=== PATIENT | male | born 1950 | race Caucasian/White ===

== ENCOUNTER 2018-05-29 10:36 | Outpatient (CLI) | payer OTHER, SELFPAY ==
--- NOTE | 2018-05-29 10:53 | DI.RAD_ITS ---
SYMPTOMS/DIAGNOSIS: BRONCHITIS ACUTE, COUGH, J20.9 PA AND LATERAL CHEST: No priors. The heart is normal in size. The lungs are clear. The mediastinal structures and pleura appear intact. CONCLUSION: Normal chest.
== END 2018-05-29 10:56 ==
PROVIDERS: PCP Internal Medicine; Visit Provider Internal Medicine
DX: J20.9 Acute bronchitis, unspecified (principal)
CPT/HCPCS: 71046

== ENCOUNTER 2018-06-18 08:38 | Emergency (ER) | payer OTHER, SELFPAY ==
[2018-06-18 08:49] VITALS: BP 138/88; PULSE 100; RESP 20; TEMP 37; O2SAT 100
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
--- NOTE | 2018-06-18 09:44 | DI.RAD_ITS ---
SYMPTOMS/DIAGNOSIS: S/P FALL, ? ACUTE FRACTURE LEFT ANKLE: No fracture or ankle mortise widening is seen. There are no significant degenerative changes. Vascular calcifications are faintly seen. IMPRESSION: Negative left ankle.
[2018-06-18 10:28] VITALS: BP 138/88; PULSE 100; RESP 20; TEMP 37; O2SAT 100
== END 2018-06-18 10:34 | disposition home or self-care (01) ==
PROVIDERS: Emergency Provider Physician Assistant; PCP Internal Medicine
DX: S93.402A Sprain of unspecified ligament of left ankle, initial encounter (principal); W00.1XXA Fall from stairs and steps due to ice and snow, initial encounter; X50.9XXA Other and unspecified overexertion or strenuous movements or postures, initial encounter; I10 Essential (primary) hypertension
CPT/HCPCS: 99283; 73610; E0114

== ENCOUNTER 2018-06-24 11:22 | Outpatient (CLI) | payer OTHER, SELFPAY ==
--- NOTE | 2018-06-24 12:00 | DI.US_ITS ---
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 The isthmus is within normal limits at .2 cm. The right lobe measures 3.4 cm. by 1.4 cm. by 2.0 cm. There is a tiny, well circumscribed, 0.3 cm. anechoic lesion in the mid right lobe. The left lobe measures 3.5 cm. by 1 cm. by 1.2 cm. No lesion is seen in the left lobe. There is normal and symmetric blood flow to the thyroid gland. IMPRESSION: Solitary 0.3 cm. cystic lesion in the right lobe of the thyroid gland which is likely benign. The thyroid gland is otherwise unremarkable. NECK ULTRASOUND: Sonographic evaluation of the right neck was performed. No suspicious cystic or solid masses are seen sonographically. IMPRESSION: Negative right neck ultrasound.
== END 2018-06-24 11:42 ==
PROVIDERS: PCP Internal Medicine; Visit Provider Otolaryngology Otolaryngology/Facial Plastic Surgery
DX: E07.9 Disorder of thyroid, unspecified (principal); E04.1 Nontoxic single thyroid nodule; R49.0 Dysphonia
CPT/HCPCS: 76536

== ENCOUNTER 2018-07-21 03:16 | Outpatient (CLI) | payer OTHER, SELFPAY | END 2018-07-21 03:36 | PROVIDERS: PCP Internal Medicine | DX: R49.0 Dysphonia (principal) | CPT/HCPCS: 92524 ==

== ENCOUNTER 2019-03-23 12:29 | Outpatient (REF) | payer OTHER, SELFPAY ==
[2019-03-23 19:05] LABS: ALT 56 U/L (16-63); Anion Gap 6.8 mmol/L (3-11); BUN 18 mg/dL (7-18); CO2 30.2 mmol/L (21.0-32.0); Chloride 102 mmol/L (98-107); Glucose 95 mg/dL (70-100); LDL CHOLESTEROL 127 mg/dL (<100); Potassium 4.1 mmol/L (3.5-5.1); Sodium 139 mmol/L (136-145)
== END 2019-03-23 12:49 ==
LOC: NCHCN 12:29
PROVIDERS: PCP Internal Medicine; Visit Provider Internal Medicine
DX: D03.9 Melanoma in situ, unspecified (principal); I10 Essential (primary) hypertension; N18.2 Chronic kidney disease, stage 2 (mild)
CPT/HCPCS: 80048; 83721; 84460

== ENCOUNTER 2019-04-30 09:36 | Emergency (ER) | payer OTHER, SELFPAY ==
[2019-04-30 09:41] VITALS: BP 134/98; PULSE 87; RESP 16; TEMP 36.4; O2SAT 97
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
[2019-04-30 11:24] VITALS: BP 134/87; PULSE 76; TEMP 36.7; O2SAT 95
== END 2019-04-30 11:27 | disposition home or self-care (01) ==
PROVIDERS: Emergency Provider Emergency Medicine; PCP Internal Medicine
DX: M25.512 Pain in left shoulder (principal); V43.52XA Car driver injured in collision with other type car in traffic accident, initial encounter; S01.511A Laceration without foreign body of lip, initial encounter; R51 Headache; I10 Essential (primary) hypertension
CPT/HCPCS: 99283; 73030; 99284; L3650

== ENCOUNTER 2019-05-15 03:16 | Outpatient (CLI) | payer OTHER, SELFPAY ==
--- NOTE | 2019-05-15 08:15 | DI.MRI_ITS ---
EXAM: MR UPPER JOINT LT WO CLINICAL HISTORY: INJURY LT ROTATOR CUFF,S46.002A, ? TEAR. TECHNIQUE: Multiplanar multisequence MRI was performed. COMPARISON: MRI R UPPER JOINT WO CONT from 08/09/2017 XR SHOULDER LT COMPLETE 2+V from 04/30/2019 FINDINGS: MR examination of the shoulder was performed according to the usual protocol. As noted on plain film s, there is marked narrowing of the articular cartilage of the glenohumeral joint and there are promi nent osteophytes particularly inferiorly of the glenoid and humeral head as well as prominent hypertr ophic changes at the AC joint. No other significant bony abnormality is seen. The glenoid labrum is effaced and appears frayed and deficient particularly anteriorly but also poste riorly and anteroinferiorly. The biceps tendon is thickened and shows abnormal signal consistent with tendinosis. There is mild m edial displacement from the bicipital groove. There is abnormal signal in the rotator interval which may reflect tear of coracohumeral ligament and/or superior glenohumeral ligament. There is superio r surface partial-thickness tear of the subscapularis tendon without retraction. There is abnormal signal in supraspinatus tendon and there are a couple of small attachment tears of the supraspinatus at the humeral head with little if any retraction. There are partial-thickness non retracted tears of infraspinatus tendon just proximal to the humeral attachment. These appear to be undersurface tears. 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 Tendinosis and partial thickness non retracted tears of subscapularis, infraspinatus and supraspinatu s tendons. Abnormal signal in rotator interval and medially displaced biceps tendon noted with presu med bicipital tendinitis proximally. Deficient frayed/torn glenoid labrum, presumably on a degenerative basis, particularly anteriorly. No significant muscular atrophy seen involving the rotator cuff musculature.
== END 2019-05-15 03:36 ==
PROVIDERS: PCP Internal Medicine; Visit Provider Specialist
DX: S46.002A Unspecified injury of muscle(s) and tendon(s) of the rotator cuff of left shoulder, initial encounter (principal); M19.012 Primary osteoarthritis, left shoulder; M75.22 Bicipital tendinitis, left shoulder
CPT/HCPCS: 73221

== ENCOUNTER 2019-05-29 13:34 | Emergency (ER) | payer OTHER, SELFPAY ==
[2019-05-29 13:38] VITALS: BP 148/97; PULSE 84; RESP 18; TEMP 36.6; O2SAT 98
--- NOTE | 2019-05-29 13:48 | ED.GENADUL_ITS ---
Discharge Plan Disposition Patient Disposition: HOME Condition: Improving Discharge Details Chief Complaint: Vascular Clinical Impression: Myalgia Primary Care Provider: Patrick Potter ED Provider: Han Rudolph Home Meds and New Rx's Prescriptions: No Action losartan 100 MG tablet 100 mg PO DAILY RF: 0 atorvastatin [Lipitor] 40 MG tablet 40 mg PO HS RF: 0 ibuprofen 600 MG tablet 600 mg PO Q6H PRN PRNQty: 30 RF: 0 Discharge Instructions Instructions: Musculoskeletal Pain (ED) Additional Instructions: May apply ice to area to reduce discomfort. May also apply warm, moist heat to area to speed blood flow and healing. May use ibuprofen and/or Tylenol if needed for discomfort. Your ultrasound was negative for any acute findings. Medical Decision Making 69-year-old male presents from home with what he describes as a charley horse type cramping in the left calf 2 nights ago and persistent discomfort since that time. He called his primary care physician's office and was referred to the ER to get an ultrasound. His vital signs are unremarkable, his exam is reassuring and differential diagnosis is likely of muscle cramp, must exclude Lee's cyst or DVT. Patient referred for ultrasound which does not show evidence of DVT or Lee's cyst. Discussed with him that this likely is a muscle strain/myalgia following cramps. He is stable for discharge to home. HPI General Mode of arrival: ambulatory . Date/Time Provider Initiated Documentation: 05/29/19 13:38 . Limitations to Documentation: no limitations . Information obtained by: patient . History of Present Illness 69 year old M presents to the emergency department with the chief complaint of Left calf pain x2 days, described as mild, Quality is described as dull, and is localized to the left and upper extremity. Patient reports no radiation. Patient started experiencing this day(s) and it has been constant. No relieving factors improve symptom(s), No exacerbating factors reported . Patient notes denies chest pain and shortness of breath. Patient did receive the following treatments prior to arrival, none Related Data Home Medications Medication Instructions Recorded Confirmed losartan 100 mg PO DAILY tab-cap 01/21/13 05/29/19 atorvastatin [Lipitor] 40 mg PO HS tab 01/18/17 05/29/19 ibuprofen 600 mg PO Q6H PRN PRN #30 tablet 02/06/17 05/29/19 Previous Rx's Medication Instructions Recorded ibuprofen 600 mg PO Q6H PRN PRN #30 tablet 02/06/17 Allergies Allergy/AdvReac Type Severity Reaction Status Date / Time cephalexin [Cephalexin] Allergy Intermediate RASH Unverified 05/29/19 13:49 General Stated Complaint: Vascular EDI: 3 Review of Systems Narrative: No chest pain or shortness of breath, no prolonged immobilization or injury. 4 systems reviewed and otherwise negative [facility] Medical History History of Lyme disease HTN (hypertension) Hyperlipidemia Nutcracker esophagus Ventricular hypertrophy Surgical History (Updated 06/18/18 @ 09:30 by Marilee Francis DO) Biceps tendon rupture (Acute) with repair H/O shoulder surgery (Chronic) Hemorrhoidal Banding (02/06/17) Kidney stones (Chronic) with surgery Social History Smoking/Tobacco Use Status: Never Alcohol Intake: current Alcohol Intake frequency: a few times a week Drug use: Never Substance use type: does not use Do you feel safe at home: Yes Do you feel safe in your relationship?: Yes Exam Narrative Exam Narrative: GEN: awake, alert, oriented 3. Pleasant, well groomed, interactive. HEAD: Normocephalic, atraumatic ENT: Mucous membranes moist, oropharynx unremarkable, External ear exam unremarkable EYES: PERRL, EOMI NECK: Full ROM, no JENNIFER, no menigismus CHEST/RESP: Nontender, clear to auscultation bilateral, no wheeze/rhonchi/rales CARDIOVASCULAR: RRR, no murmur, rub alana. 2+ Rad pulse bilateral EXT: Full ROM, no edema, no rash. Mild tenderness left posterior calf, no cords appreciated. No asymmetry. No significant edema. Neuro: Grossly normal neurologic exam, conversant, interactive. Psych: Speech fluent, thoughts congruent, affect normal Course Vital Signs Vital signs: Vital Signs Temperature 36.6 C 05/29/19 13:38 Pulse 84 05/29/19 13:38 Respiratory Rate 18 05/29/19 13:38 Blood Pressure 148/97 H 05/29/19 13:38 Pulse Oximetry 98 05/29/19 13:38 Temperature 36.6 C 05/29/19 13:38 Temperature Source Skin 05/29/19 13:38 Pulse 84 05/29/19 13:38 Respiratory Rate 18 05/29/19 13:38 Respiratory Effort Non-Labored 05/29/19 13:41 Blood Pressure 148/97 H 05/29/19 13:38 Blood Pressure Position Sitting 05/29/19 13:38 Pulse Oximetry 98 05/29/19 13:38 Oxygen Delivery Method Room Air 05/29/19 13:38 Oxygen Flow Rate 0 05/29/19 13:38 Pain Level 6 05/29/19 13:38
--- NOTE | 2019-05-29 14:17 | DI.US_ITS ---
EXAM: US LOWER EXTREMITY VENOUS LT US LOWER EXTREMITY VENOUS LT CLINICAL HISTORY: calf/lower leg pain, 'referred by PMD for US'. TECHNIQUE: Lower extremity venous ultrasound performed using grayscale, color-flow, and spectral Dop pler analysis. COMPARISON: No exams were available for comparison FINDINGS: The common femoral, femoral and popliteal veins demonstrate normal compressibility, augmentation, and color Doppler. The posterior tibial veins are patent. The saphenous vein appears free of thrombus. No Lee's cyst or hematoma is seen. IMPRESSION: No evidence of DVT.
[2019-05-29 14:54] VITALS: BP 148/97; PULSE 84; RESP 18; TEMP 36.6; O2SAT 98
== END 2019-05-29 14:53 | disposition home or self-care (01) ==
PROVIDERS: Emergency Provider Emergency Medicine; PCP Internal Medicine
DX: M79.662 Pain in left lower leg (principal); M62.831 Muscle spasm of calf; M79.10 Myalgia, unspecified site; I10 Essential (primary) hypertension
CPT/HCPCS: 99284; 93971

== ENCOUNTER 2019-06-30 02:07 | Outpatient (CLI) | payer OTHER, SELFPAY ==
--- NOTE | 2019-06-30 | DI.US_ITS ---
EXAM: US THYROID CLINICAL HISTORY: THYROID NODULE E04.1. TECHNIQUE: Ultrasound thyroid performed using standard protocol. FINDINGS: ISTHMUS: 3 mm RIGHT LOBE: Size: 4.2 x 1.6 x 1.9 cm Echogenicity: Normal. Vascularity: Normal. Nodules: There is a 0.3 x 0.2 x 0.3 cm well-circumscribed completely cystic lesion in the upper pole. LEFT LOBE: Size: 3.5 x 1.2 x 1.2 cm Echogenicity: Normal. Vascularity: Normal. Nodules: There is a 0.4 x 0.2 x 0.3 cm well-circumscribed completely cystic avascular lesion in the m idpole. OTHER FINDINGS: None. IMPRESSION: Two small cysts in the thyroid gland. No suspicious thyroid nodules.
== END 2019-06-30 02:27 ==
PROVIDERS: PCP Internal Medicine; Visit Provider Otolaryngology Otolaryngology/Facial Plastic Surgery
DX: E04.2 Nontoxic multinodular goiter (principal); E07.89 Other specified disorders of thyroid
CPT/HCPCS: 76536

== ENCOUNTER 2019-12-11 02:07 | Outpatient (CLI) | payer OTHER, SELFPAY ==
[2019-12-21 11:06] LABS: Factor V Leiden(R506Q) Mut Heterozygous
== END 2019-12-11 02:27 ==
PROVIDERS: PCP Internal Medicine; Visit Provider Internal Medicine
DX: Z83.2 Family history of diseases of the blood and blood-forming organs and certain disorders involving the immune mechanism (principal)
CPT/HCPCS: 36415; 81241

== ENCOUNTER 2020-01-08 04:07 | Outpatient (CLI) | payer OTHER, SELFPAY ==
--- NOTE | 2020-01-08 07:49 | DI.RAD_ITS ---
EXAM: XR KNEE LT 3V AP,LAT,GIL CLINICAL HISTORY: LT KNEE PAIN,M25.562 TECHNIQUE: COMPARISON: No exams were available for comparison FINDINGS: Three views were obtained. There may be a small knee joint effusion. . There may be slight degener ative narrowing of the medial tibiofemoral cartilaginous joint space.No bony abnormality seen. IMPRESSION: Question degenerative thinning medial tibial femoral joint articular cartilage. Possible joint effus ion. Otherwise unremarkable. RADIATION DOSE DELIVERED: Total DLP
== END 2020-01-08 04:27 ==
PROVIDERS: PCP Internal Medicine; Visit Provider Physician Assistant
DX: M25.562 Pain in left knee (principal)
CPT/HCPCS: 73562

== ENCOUNTER 2020-02-26 13:17 | Outpatient (REF) | payer OTHER, SELFPAY ==
[2020-02-26 19:11] LABS: Albumin 3.9 g/dL (3.4-5.0); Anion Gap 5.8 mmol/L (3-11); BUN 19 mg/dL (7-18); CO2 28.2 mmol/L (21.0-32.0); CREATININE 1.09 mg/dL (0.70-1.30); Chloride 102 mmol/L (98-107); Glucose 92 mg/dL (74-106); Magnesium 2.1 mg/dL (1.8-2.4); PHOSPHORUS 3.3 mg/dL (2.6-4.7); Potassium 3.7 mmol/L (3.5-5.1); Sodium 136 mmol/L (136-145)
== END 2020-02-26 13:37 ==
LOC: NCHCN 13:17
PROVIDERS: PCP Internal Medicine; Visit Provider Internal Medicine
DX: Z00.00 Encounter for general adult medical examination without abnormal findings (principal); I10 Essential (primary) hypertension; M12.812 Other specific arthropathies, not elsewhere classified, left shoulder
CPT/HCPCS: 80069; 83735

== ENCOUNTER 2020-03-30 15:58 | Emergency (ER) | payer MEDICARE, OTHER, SELFPAY ==
[2020-03-30 16:05] VITALS: BP 125/78; PULSE 117; RESP 18; TEMP 36.7; O2SAT 96
--- NOTE | 2020-03-30 16:15 | DI.US_ITS ---
EXAM: US SOFT TISS EXTREMITY/GROIN CLINICAL HISTORY: swelling, pain. TECHNIQUE: Ultrasound was performed using standard protocol. COMPARISON: No exams were available for comparison FINDINGS: Sonographic assessment utilizing grayscale and color Doppler imaging was performed and targeted to th e area of clinical concern. In the right inguinal region, there is a 3.1 x 2.1 x 2.5 cm heterogeneous area which increases upon V alsalva suggesting an inguinal hernia. This appears to be a fat containing inguinal hernia. There d oes however appear to be a component of the herniated material with a bowel signature. The neck of t he hernia measures approximately 2.5 cm in diameter. IMPRESSION: Findings suggestive of right inguinal hernia composed mostly of fat but a short loop of bowel appears to be included. A CT scan should be considered for further evaluation. DATA REPOSITORY:
--- NOTE | 2020-03-30 18:03 | DI.VRAD_ITS ---
PROCEDURE INFORMATION: Exam: US Right Non-Vascular Joint or Other Extremity Structure, Limited Lower Extremity Exam date and time: 03/30/2020 4:17 PM Age: 70 years old Clinical indication: Hip; Right; Patient HX: RT groin lump x several years. Sudden onset of RT groin pain yesterday. TECHNIQUE: Imaging protocol: Right US joint or other nonvascular extremity structure or structures. Real-time ultrasound with image documentation. Limited study. Exam focused on the lower extremity in the region of clinical interest. COMPARISON: No relevant prior studies available. FINDINGS: Soft tissues: In the right groin, in the region of the right inguinal canal, there is a 3.1 x 2.1 x 2.5 cm oblong heterogeneous region which increases in craniocaudal dimension on Valsalva maneuver during dynamic cine imaging, suggesting an inguinal hernia, likely an indirect inguinal hernia. On some images there is a striated appearance to the contents within the hernia sac, indicating a short loop of small bowel within the superior aspect of the hernia sac. The neck of the hernia appears to measure approximately 2.5 cm diameter. IMPRESSION: Findings suggest small right inguinal hernia, which contains mostly fat but likely also contains a short loop of small bowel within its superior aspect. Recommend clinical correlation. Better evaluation with CT could be obtained as clinically indicated. Dictated and Authenticated by: Bony Napoles MD. Ordering:ANGELINA Garcia MD
--- NOTE | 2020-03-30 18:31 | ED.GENADUL_ITS ---
Discharge Plan Disposition Patient Disposition: HOME Condition: Stable Discharge Details Clinical Impression: Hernia, inguinal, right Primary Care Provider: Patrick Potter ED Provider: Radha Obando Home Meds and New Rx's Prescriptions: No Action losartan 100 MG tablet 100 mg PO DAILY RF: 0 atorvastatin [Lipitor] 40 MG tablet 40 mg PO HS RF: 0 aspirin 325 mg Tablet 325 mg PO DAILY RF: 0 hydromorphone [Dilaudid] 2 mg Tablet 2 mg PO Q4H PRNRF: 0 naproxen sodium [Aleve] 220 mg Capsule 220 mg PO Q8H PRNRF: 0 Discharge Instructions Instructions: Inguinal Hernia (ED) Additional Instructions: Continue home medications as previously directed Add fiber and stool softeners to keep your bowel movements Increase fluids to stay well-hydrated Return immediately for new or worsening symptoms Referrals: Patrick Potter [Primary Care Provider] - Medical Decision Making Medical Records Medical records reviewed: Yes I reviewed the patient's medical records. Medical records narrative: right inguinal ultrasound FINDINGS: Soft tissues: In the right groin, in the region of the right inguinal canal, there is a 3.1 x 2.1 x 2.5 cm oblong heterogeneous region which increases in craniocaudal dimension on Valsalva maneuver during dynamic cine imaging, suggesting an inguinal hernia, likely an indirect inguinal hernia. On some images there is a striated appearance to the contents within the hernia sac, indicating a short loop of small bowel within the superior aspect of the hernia sac. The neck of the hernia appears to measure approximately 2.5 cm diameter. IMPRESSION: Findings suggest small right inguinal hernia, which contains mostly fat but likely also contains a short loop of small bowel within its superior aspect. Recommend clinical correlation. Better evaluation with CT could be obtained as clinically indicated. HPI General Date/Time Provider Initiated Documentation: 03/30/20 16:14 . Limitations to Documentation: no limitations . Information obtained by: patient . HPI Narrative: Patient presents for evaluation of right groin pain which woke him up from sleeping. he states he was concerned it was a blood clot so presented to the ED for evaluation. the pain has since subsided. he reports he has a chronic lump in his groin that is unchanged and not painful currently. he is passing flatus and last BM yesterday. no other c/o. Related Data Home Medications Medication Instructions Recorded Confirmed losartan 100 mg PO DAILY tab-cap 01/21/13 03/30/20 atorvastatin [Lipitor] 40 mg PO HS tab 01/18/17 03/30/20 aspirin 325 mg PO DAILY 03/30/20 03/30/20 hydromorphone [Dilaudid] 2 mg PO Q4H PRN 03/30/20 03/30/20 naproxen sodium [Aleve] 220 mg PO Q8H PRN 03/30/20 03/30/20 Allergies Allergy/AdvReac Type Severity Reaction Status Date / Time cephalexin [Cephalexin] Allergy Intermediate RASH Unverified 03/30/20 16:11 General Stated Complaint: Abd Prob EDI: 3 Review of Systems Constitutional Constitutional: Denies fever(s) Gastrointestinal Gastrointestinal: Denies abdominal pain, Denies constipation and Denies diarrhea Genitourinary Genitourinary: Denies difficulty urinating Musculoskeletal Musculoskeletal: Reports other (right groin pain) Integumentary/Breasts Skin/Breast: Denies new lesions and Denies rash [facility] Medical History (Updated 03/30/20 @ 18:40 by Radha Obando NP) History of Lyme disease HTN (hypertension) Hyperlipidemia Nutcracker esophagus Ventricular hypertrophy Surgical History (Updated 06/18/18 @ 09:30 by Marilee Francis DO) Biceps tendon rupture with repair H/O shoulder surgery Hemorrhoidal Banding (02/06/17) Kidney stones with surgery Social History Smoking/Tobacco Use Status: Never Smoking risk assessment performed?: Yes Alcohol Intake: current Alcohol Intake frequency: a few times a week Drug use: Never Substance use type: does not use Do you feel safe at home: Yes Do you feel safe in your relationship?: Yes Exam Const General: cooperative, comfortable and no acute distress GI Palpation: hernia other (right soft, non painful, non reducible. reports chronic and unchanged) Course Vital Signs Vital signs: Vital Signs Temperature 36.7 C 03/30/20 16:05 Pulse 117 H 03/30/20 16:05 Respiratory Rate 18 03/30/20 16:05 Blood Pressure 125/78 03/30/20 16:05 Pulse Oximetry 96 03/30/20 16:05 Temperature 36.7 C 03/30/20 16:05 Temperature Source Temporal Artery Scan 03/30/20 16:05 Pulse 117 H 03/30/20 16:05 Respiratory Rate 18 03/30/20 16:05 Respiratory Effort Non-Labored 03/30/20 16:09 Blood Pressure 125/78 03/30/20 16:05 Blood Pressure Position Sitting 03/30/20 16:05 Pulse Oximetry 96 03/30/20 16:05 Oxygen Delivery Method Room Air 03/30/20 16:05 Oxygen Flow Rate 0 03/30/20 16:05 Pain Level 2 03/30/20 18:11
[2020-03-30 18:46] VITALS: BP 135/85; PULSE 98; RESP 16; TEMP 37.2; O2SAT 95
[2020-03-30 18:47] VITALS: BP 135/85; PULSE 98; RESP 16; TEMP 37.2; O2SAT 95
== END 2020-03-30 18:46 | disposition home or self-care (01) ==
PROVIDERS: Emergency Provider Nurse Practitioner Acute Care; PCP Internal Medicine
DX: K40.90 Unilateral inguinal hernia, without obstruction or gangrene, not specified as recurrent (principal); I10 Essential (primary) hypertension
CPT/HCPCS: 76882; 99284; 99283

== ENCOUNTER 2021-03-06 20:05 | Outpatient (REF) | payer MEDICARE, OTHER, SELFPAY ==
[2021-03-06 21:31] LABS: ALT 56 U/L (16-63); Anion Gap 10.9 mmol/L (3-11); BUN 19 mg/dL (7-18); CO2 28.1 mmol/L (21.0-32.0); CREATININE 1.1 mg/dL (0.70-1.30); Calcium 8.9 mg/dL (8.5-10.1); Chloride 102 mmol/L (98-107); Glucose 122 mg/dL (74-106); LDL CHOLESTEROL 108 mg/dL (<100); Potassium 3.9 mmol/L (3.5-5.1); Sodium 141 mmol/L (136-145)
== END 2021-03-06 20:06 | disposition home or self-care (01) ==
LOC: NCHCN 20:05
PROVIDERS: PCP Internal Medicine; Visit Provider Internal Medicine
DX: E78.5 Hyperlipidemia, unspecified (principal); I10 Essential (primary) hypertension
CPT/HCPCS: 80048; 83721; 84460

== ENCOUNTER 2021-07-24 16:43 | Outpatient (REF) | payer MEDICARE, SELFPAY ==
[2021-07-24 19:44] LABS: ESR 9 mm/hr (0-20)
[2021-07-24 19:45] LABS: HCT 46.4 % (40.0-50.0); MCH 32.1 pg (27.0-33.0); MCHC 34.5 % (32.0-36.0); MPV 9.4 fL (8.0-11.0); Platelet Count 253 10^3/uL (130-400); RBC 4.99 10^6/uL (4.36-5.78); RDW 13.2 % (11.8-14.1); RDW-SD 44.8 fL; WBC 7.81 10^3/uL (4.4-10.8)
[2021-07-24 19:53] LABS: C-Reactive Protein 0.17 mg/dL (0.0-0.3)
[2021-07-26 10:21] LABS: Cyclic Citrullinated Peptide <2.5 U/mL (<5.0)
== END 2021-07-24 16:44 | disposition home or self-care (01) ==
LOC: NCHCN 16:43
PROVIDERS: PCP Internal Medicine; Visit Provider Internal Medicine
DX: M17.12 Unilateral primary osteoarthritis, left knee (principal); M79.10 Myalgia, unspecified site; M12.812 Other specific arthropathies, not elsewhere classified, left shoulder
CPT/HCPCS: 85027; 85652; 86200; 86140; 86431

== ENCOUNTER → 2021-08-02 14:02 | Outpatient (CLI) | payer MEDICARE, SELFPAY ==
--- NOTE | 2021-08-02 14:21 | DI.RAD_ITS ---
Exam(s) XR CHEST 2V PA LATERAL EXAM: XR CHEST 2V PA LATERAL CLINICAL HISTORY: PERSISTENT COUGH X 2 MONTHS. TECHNIQUE: 2D digital imaging was performed. COMPARISON: CR XR CHEST 2V PA LATERAL from 05/29/2018 FINDINGS: 2 views: There is now a left shoulder prosthesis. Again noted is widening of the AC joint on the opposite-rig ht side. Heart size is normal. The mediastinum is not widened. Lungs are clear. No infiltrates nor pleural effusions. IMPRESSION: No acute pulmonary findings. Left shoulder prosthesis. DATA REPOSITORY: RADIATION DOSE DELIVERED:
== END ==
PROVIDERS: PCP Internal Medicine; Visit Provider Internal Medicine
DX: R05.8 Other specified cough (principal)
CPT/HCPCS: 71046

== ENCOUNTER 2022-04-26 14:19 | Outpatient (REF) | payer MEDICARE, SELFPAY ==
[2022-04-26 19:25] LABS: ALT 58 U/L (16-63); Anion Gap 6.9 mmol/L (3-11); BUN 19 mg/dL (7-18); CO2 29.1 mmol/L (21.0-32.0); CREATININE 1.2 mg/dL (0.70-1.30); Chloride 101 mmol/L (98-107); Creatine Kinase 524 U/L (39-308); Estimated GFR 65.06 (mL/min/1.73m2); Glucose 112 mg/dL (74-106); Potassium 3.9 mmol/L (3.5-5.1); Sodium 137 mmol/L (136-145)
[2022-04-26 19:45] LABS: Calculated LDL 122 mg/dL (<100); Cholesterol 215 mg/dL (<200); HDL Cholesterol 67 mg/dL (40-60); Triglyceride 130 mg/dL (<150)
== END 2022-04-26 14:20 | disposition home or self-care (01) ==
LOC: NCHCN 14:19
PROVIDERS: PCP Internal Medicine; Visit Provider Internal Medicine
DX: I10 Essential (primary) hypertension (principal); S93.412A Sprain of calcaneofibular ligament of left ankle, initial encounter; Z00.00 Encounter for general adult medical examination without abnormal findings
CPT/HCPCS: 80048; 80061; 82550; 84460

== ENCOUNTER 2022-10-24 13:29 | Outpatient (REF) | payer MEDICARE, SELFPAY ==
[2022-10-24 21:46] LABS: Bilirubin, Direct 0.2 mg/dL (0.0-0.2); C-Reactive Protein 0.56 mg/dL (0.0-0.3); Creatine Kinase 504 U/L (39-308); LDH 227 U/L (85-227); Potassium 4.3 mmol/L (3.5-5.1)
== END 2022-10-24 13:30 | disposition home or self-care (01) ==
LOC: NCHCN 13:29
PROVIDERS: PCP Internal Medicine; Visit Provider Internal Medicine
DX: D68.51 Activated protein C resistance (principal); N18.2 Chronic kidney disease, stage 2 (mild); E78.5 Hyperlipidemia, unspecified; N20.0 Calculus of kidney; Z86.19 Personal history of other infectious and parasitic diseases; R79.82 Elevated C-reactive protein (CRP)
CPT/HCPCS: 82550; 82248; 83615; 83735; 84132; 86140

== ENCOUNTER 2022-12-15 08:56 | Emergency (ER) | payer MEDICARE, SELFPAY ==
[2022-12-15 09:02] VITALS: BP 144/71; PULSE 100; RESP 18; TEMP 36.8
--- NOTE | 2022-12-15 09:07 | ED.GENADUL_ITS ---
Discharge Plan Disposition Patient Disposition: Home Condition: Stable Discharge Details Clinical Impression: Deep vein thrombosis (DVT) of popliteal vein of right lower extremity Primary Care Provider: Patrick Potter ED Provider: Marly Daneils Home Meds and New Rx's Prescriptions: New Eliquis DVT-PE Treat 30D Start 5 mg (74 tabs) tablets,dose pack 5 mg PO BID Qty: 74 0RF Rx Instructions: Take 10 mg orally twice daily x 7 days: Then 5mg orally twice daily as per package instructions oxycodone 5 mg capsule 5 mg PO Q8H PRN (Reason: pain) Qty: 7 0RF Rx Instructions: Take 1 capsule by mouth every 8 hours as needed for moderate to severe pain. Please take with food and no driving or operating heavy machinery while on this medication. No Action losartan 100 MG tablet 100 mg PO DAILY atorvastatin [Lipitor] 40 MG tablet 40 mg PO HS aspirin 325 mg Tablet 325 mg PO DAILY hydromorphone [Dilaudid] 2 mg Tablet 2 mg PO Q4H PRN naproxen sodium [Aleve] 220 mg Capsule 220 mg PO Q8H PRN Discharge Instructions Instructions: Apixaban (By mouth), Deep Vein Thrombosis (ED) Additional Instructions: You have a deep vein thrombosis or a blood clot in your right lower leg. Please take the Eliquis as directed should be taking 10 mg twice a day for the next 7 days and then 5 mg twice a day thereafter. Please follow-up with your primary care provider in the next 7 days. Do not rub your leg, please return to the ER if you have any chest pain, shortness of breath or feeling sicker at any time. Follow up with primary care provider in 3-5 days. Return to ED sooner if any worsening or concerns. Increase oral fluids. Referrals: Patrick Potter [Primary Care Provider] - 3 days Discharge Data Discharge Date/Time-TO BE ENTERED AT DEPARTURE: 12/15/22 11:11 Medical Decision Making 72-year-old male with past medical history hypertension, Lyme disease, hyperlipidemia nutcracker esophagus ventricular hypertrophy, biceps tendon rupture hemorrhoidal banding and kidney stones presents to the ER with a chief complaint of right calf pain which began yesterday. He has no known trauma or injuries. He does report that it extends up into his posterior right thigh. There is slight amount of swelling no erythema or warmth noted. No obvious deformity. US RLE venous Doppler ordered. Positive for DVT. Please see report below. Ultrasound shows occlusive thrombus from the proximal posterior tibial and peroneal veins to the proximal popliteal vein. The common femoral femoral and proximal profundofemoral are patent without thrombus. Segment of thrombus is approximately 12 cm in length. Labs ordered including CBC, CMP PT PTT Labs are largely unremarkable glucose 138. Patient has no chest pain no palpitations no shortness of breath at this time. Discussed results of ultrasound with patient and family who verbalized understanding. Will place patient on Eliquis 10 mg twice a day x7 days and then 5 mg twice daily. I did encourage close and strict follow-up with PCP. I did discuss home care. Patient does have a history of blood clots in the past after surgery. I also did recommend vascular follow-up at [facility] [place]. Patient and family verbalized understanding. Oxycodone sent to pharmacy on file [facility] in [place] for pain. This text was generated using readeoation system, please disregard any oddities of phrase or misspellings. Medical Records Medical records reviewed: Yes I reviewed the patient's medical records. Imaging Data Radiologic Study: Imaging: Ultrasound Radiologist's impression: COMPARISON: US SOFT TISS EXTREMITY/GROIN 03/30/2020 4:24 PM FINDINGS: Right deep veins: Occlusive thrombus within the proximal posterior tibial and peroneal veins. This extends proximally through the popliteal vein. This segment of thrombus is approximally 12 cm in length. The common femoral, femoral, and proximal profunda femoral are patent without thrombus. Normal Doppler waveforms. Normal compressibility and/or augmentation response. Superficial veins: Unremarkable. Saphenofemoral junction is patent without thrombus. Soft tissues: Unremarkable. IMPRESSION: Occlusive thrombus from the proximal posterior tibial and peroneal veins to the proximal popliteal vein. Thank you for allowing us to participate in the care of your patient. Dictated and Authenticated by: Fernando Mirza MD Lab Data Lab results reviewed: Yes I reviewed the patient's lab results. Labs: Laboratory Tests Range/Units 12/15/22 12/15/22 12/15/22 10:22 10:22 10:22 WBC (4.4-10.8) 10^3/uL 7.33 RBC (4.36-5.78) 10^6/uL 4.97 Hgb (13.5-17.5) g/dL 15.9 Hct (40.0-50.0) % 46.3 MCV (80-95) fL 93 MCH (27.0-33.0) pg 32.0 MCHC (32.0-36.0) % 34.3 RDW (11.8-14.1) % 13.1 Plt Count (130-400) 10^3/uL 197 MPV (8.0-11.0) fL 9.0 Immature Gran % 0.8 Neutrophils % 65.9 Lymphocytes % 19.1 Monocytes % 10.0 Eosinophils % 3.0 Basophils % 1.2 Nucleated RBC % (0.0-0.3) % 0.0 Absolute Neutrophils (1.2-6.7) 10^3/uL 4.83 Absolute Lymphocytes (1.2-3.4) 10^3/uL 1.40 Absolute Monocytes (0.1-0.8) 10^3/uL 0.73 Absolute Eosinophils (0.0-0.7) 10^3/uL 0.22 Absolute Basophils (0.0-0.2) 10^3/uL 0.09 PT (9.3-11.0) sec 9.5 INR (0.9-1.1) 0.9 APTT (21.5-31.9) sec 25.5 Sodium (136-145) mmol/L 139 Potassium (3.5-5.1) mmol/L 3.9 Chloride (98-107) mmol/L 103 Carbon Dioxide (21.0-32.0) mmol/L 26.0 Anion Gap (3-11) mmol/L 10.0 BUN (7-18) mg/dL 19 H Creatinine (0.70-1.30) mg/dL 1.2 Est GFR (CKD-EPI 2020) (mL/min/1.73m2) 65.06 Glucose (74-106) mg/dL 138 H Calcium (8.5-10.1) mg/dL 8.6 Total Bilirubin (0.2-1.0) mg/dL 0.5 AST (15-37) U/L 20 ALT (16-63) U/L 46 Alkaline Phosphatase (46-116) U/L 77 Total Protein (6.4-8.2) g/dL 7.4 Albumin (3.4-5.0) g/dL 3.7 HPI General Mode of arrival: ambulatory . Date/Time Provider Initiated Documentation: 12/15/22 08:57 . Limitations to Documentation: no limitations . Information obtained by: patient, RN notes reviewed and old records reviewed . HPI Narrative: 72-year-old male with past medical history hypertension, Lyme disease, hyperlipidemia nutcracker esophagus ventricular hypertrophy, biceps tendon rupture hemorrhoidal banding and kidney stones presents to the ER with a chief complaint of right calf pain which began yesterday. He has no known trauma or injuries. He does report that it extends up into his posterior right thigh. There is slight amount of swelling no erythema or warmth noted. No obvious deformity. Related Data Home Medications Medication Instructions Recorded Confirmed losartan 100 mg tablet 100 mg PO DAILY 01/21/13 03/30/20 atorvastatin 40 mg tablet (Lipitor) 40 mg PO HS 01/18/17 03/30/20 aspirin 325 mg tablet 325 mg PO DAILY 03/30/20 03/30/20 hydromorphone 2 mg tablet 2 mg PO Q4H PRN 03/30/20 03/30/20 (Dilaudid) naproxen sodium 220 mg capsule 220 mg PO Q8H PRN 03/30/20 03/30/20 (Aleve) apixaban 5 mg (74 tabs) tablets in 5 mg PO BID DVT #74 dose pk 12/15/22 a dose pack (Eliquis DVT-PE Treat 30D Start) oxycodone 5 mg capsule 5 mg PO Q8H PRN pain #7 caps 12/15/22 Previous Rx's Medication Instructions Recorded apixaban 5 mg (74 tabs) tablets in 5 mg PO BID DVT #74 dose pk 12/15/22 a dose pack (Eliquis DVT-PE Treat 30D Start) oxycodone 5 mg capsule 5 mg PO Q8H PRN pain #7 caps 12/15/22 Allergies Allergy/AdvReac Type Severity Reaction Status Date / Time cephalexin [Cephalexin] Allergy Intermediate RASH Unverified 03/30/20 16:11 General Stated Complaint: Vascular EDI: 3 PFSH All Active Problems (Updated 12/15/22 @ 11:11 by Marly Daniels NP) Deep vein thrombosis (DVT) of popliteal vein of right lower extremity (Acute) Bilateral chronic otorrhea (Acute 03/30/15) Medical History (Updated 12/15/22 @ 11:11 by Marly Daniels NP) History of Lyme disease HTN (hypertension) Hyperlipidemia Nutcracker esophagus Ventricular hypertrophy Surgical History (Updated 06/18/18 @ 09:30 by Marilee Francis DO) Biceps tendon rupture with repair H/O shoulder surgery Hemorrhoidal Banding (02/06/17) Kidney stones with surgery Social History Smoking/Tobacco Use Status: Never Smoking risk assessment performed?: Yes Alcohol Intake: current Alcohol Intake frequency: a few times a week Drug use: Never Substance use type: does not use Do you feel safe at home: Yes Do you feel safe in your relationship?: Yes Exam Resp Effort & Inspection: normal respiratory effort and able to speak in complete sentences Auscultation: clear to auscultation bilaterally Cardio Rate: regular rate Rhythm: regular rhythm Heart Sounds: S1 normal and S2 normal Extrem General: calf tenderness on the right, no cyanosis, no edema, limp and no pedal edema Right lower extremity: normal capillary refill, knee and lower leg Details: tenderness Location: of the posterior calf and localized swelling Location: of the mid lower leg; no erythema; no edema Course Vital Signs Vital signs: Vital Signs Pulse 100 H 12/15/22 09:02 Respiratory Rate 18 12/15/22 09:02 Blood Pressure 144/71 H 12/15/22 09:02 Temperature Source Oral 12/15/22 09:02 Pulse 100 H 12/15/22 09:02 Respiratory Rate 18 12/15/22 09:02 Blood Pressure 144/71 H 12/15/22 09:02 Blood Pressure Position Sitting 12/15/22 09:02 Oxygen Delivery Method Room Air 12/15/22 09:02 Oxygen Flow Rate 0 12/15/22 09:02 Pain Level 9 12/15/22 09:02
--- NOTE | 2022-12-15 09:15 | DI.US_ITS ---
Exam(s) US LOWER EXTREMITY VENOUS RT EXAM: US LOWER EXTREMITY VENOUS RT CLINICAL HISTORY: Right calf pain and swelling. TECHNIQUE: Lower extremity venous ultrasound performed using grayscale, color-flow, and spectral Do ppler analysis. COMPARISON: No exams were available for comparison FINDINGS: The common femoral, profundus femoral and superficial femoral veins demonstrate normal compressibilit y, augmentation, and color Doppler.The popliteal vein contains thrombus which extends into the proxim al peroneal and posterior tibial veins. Approximate 12 cm in length. No saphenous vein thrombosis o r other superficial venous thrombosis is seen. No hematoma or Lee's cyst is seen. IMPRESSION: Deep venous thrombosis from the popliteal vein extending into the peroneal and posterior tibial veins . DATA REPOSITORY:
--- NOTE | 2022-12-15 10:20 | DI.VRAD_ITS ---
PROCEDURE INFORMATION: Exam: US Duplex Right Lower Extremity Veins, Limited Exam date and time: 12/15/2022 9:32 AM Age: 72 years old Clinical indication: Pain; Leg, lower; Right TECHNIQUE: Imaging protocol: Real-time duplex ultrasound of the right extremity with 2-D hartmann scale, color Doppler flow and spectral waveform analysis including responses to compression and other maneuvers (when performed) with image documentation. Limited exam was focused on the right lower extremity veins. COMPARISON: US SOFT TISS EXTREMITY/GROIN 03/30/2020 4:24 PM FINDINGS: Right deep veins: Occlusive thrombus within the proximal posterior tibial and peroneal veins. This extends proximally through the popliteal vein. This segment of thrombus is approximally 12 cm in length. The common femoral, femoral, and proximal profunda femoral are patent without thrombus. Normal Doppler waveforms. Normal compressibility and/or augmentation response. Superficial veins: Unremarkable. Saphenofemoral junction is patent without thrombus. Soft tissues: Unremarkable. IMPRESSION: Occlusive thrombus from the proximal posterior tibial and peroneal veins to the proximal popliteal vein. Dictated and Authenticated by: Fernando Mirza MD. Ordering:NILTON Luke MD
[2022-12-15 10:28] LABS: Abs Immature Grans 0.06 10^3/uL (0.0-0.06); Absolute Basophil Count 0.09 10^3/uL (0.0-0.2); Absolute Eosinophil Count 0.22 10^3/uL (0.0-0.7); Absolute Monocyte Count 0.73 10^3/uL (0.1-0.8); Absolute Neutrophil Count 4.83 10^3/uL (1.2-6.7); Basophils % 1.2; HCT 46.3 % (40.0-50.0); HGB 15.9 g/dL (13.5-17.5); Immature Grans % 0.8; Lymphocytes % 19.1; MCHC 34.3 % (32.0-36.0); MCV 93 fL (80-95); Neutrophils % 65.9; Platelet Count 197 10^3/uL (130-400); RBC 4.97 10^6/uL (4.36-5.78); RDW 13.1 % (11.8-14.1); RDW-SD 44.9 fL; WBC 7.33 10^3/uL (4.4-10.8)
[2022-12-15 10:42] LABS: INR 0.9 (0.9-1.1); PTT Activated 25.5 sec (21.5-31.9); Prothrombin Time 9.5 sec (9.3-11.0)
[2022-12-15 10:43] LABS: ALT 46 U/L (16-63); AST 20 U/L (15-37); Albumin 3.7 g/dL (3.4-5.0); Alkaline Phosphatase 77 U/L (46-116); BUN 19 mg/dL (7-18); Bilirubin, Total 0.5 mg/dL (0.2-1.0); CREATININE 1.2 mg/dL (0.70-1.30); Calcium 8.6 mg/dL (8.5-10.1); Chloride 103 mmol/L (98-107); Estimated GFR 65.06 (mL/min/1.73m2); Glucose 138 mg/dL (74-106); Potassium 3.9 mmol/L (3.5-5.1); Sodium 139 mmol/L (136-145); Total Protein 7.4 g/dL (6.4-8.2)
[2022-12-15 11:07] VITALS: BP 123/79; PULSE 95; RESP 24; TEMP 36.4; O2SAT 94
[2022-12-15] MEDS: Apixaban 5 MG TAB 10 MG PO (11:10)
== END 2022-12-15 11:11 | disposition home or self-care (01) ==
PROVIDERS: Emergency Provider Registered Nurse Emergency; PCP Internal Medicine
DX: M79.661 Pain in right lower leg (principal); I82.431 Acute embolism and thrombosis of right popliteal vein; I10 Essential (primary) hypertension
CPT/HCPCS: 80053; 99284; 85025; 85610; 85730; 93971

== ENCOUNTER → 2022-12-24 02:08 | Outpatient (CLI) | payer MEDICARE, SELFPAY ==
--- NOTE | 2022-12-24 10:00 | DI.RAD_ITS ---
Exam(s) XR CHEST 2V PA LATERAL EXAM: XR CHEST 2V PA LATERAL CLINICAL HISTORY: ASBESTOS EXPOSURE, [id number]. TECHNIQUE: 2D digital imaging was performed. COMPARISON: CR XR CHEST 2V PA LATERAL from 08/02/2021 FINDINGS: 2 views: Heart size is normal. The mediastinum is not widened. Lungs are clear. No infiltrates nor pleural effusions. Left shoulder prosthesis again noted. Also widening of the right AC joint again noted probably relat ed to prior decompression surgery. IMPRESSION: No acute pulmonary findings. DATA REPOSITORY: RADIATION DOSE DELIVERED:
== END ==
PROVIDERS: PCP Internal Medicine; Visit Provider Internal Medicine
DX: Z77.090 Contact with and (suspected) exposure to asbestos (principal)
CPT/HCPCS: 71046

== ENCOUNTER 2023-03-16 11:40 | Emergency (ER) | payer MEDICARE, SELFPAY ==
[2023-03-16 11:42] VITALS: BP 153/96; PULSE 96; RESP 18; TEMP 36.7; O2SAT 98
--- NOTE | 2023-03-16 12:00 | DI.CT_ITS ---
Exam(s) CT ABDOMEN PELVIS W EXAM: CT ABDOMEN PELVIS W CLINICAL HISTORY: lower abdominal pain, TTP suprapubic RLQ TECHNIQUE: Imaging Protocol: Axial computed tomography images with coronal and sagittal reformatted images were created and reviewed CONTRAST MATERIAL: Intravenous: Omnipaque 350 Contrast volume:100 mL Oral: No COMPARISON: CT RENAL COLIC WO CONTRAST from 05/21/2014 FINDINGS: ABDOMEN: Lung Bases: Mild bilateral basilar atelectasis. Liver: There is fatty infiltration of the liver. No measurable mass. Portal, Superior Mesenteric, and Splenic Veins: Unremarkable. Gallbladder and Biliary Tract: No radiodense calculus or dilation. Pancreas: Normal density, no abnormal calcifications or inflammatory process. Spleen: Normal. Adrenals: No masses seen. Kidneys: Normal size, contour and axis. No radiodense stones or obstructive uropathy. There are tiny hypodensities in the kidneys. They are too small for further characterization but likely reflect sma ll cysts. No follow-up is recommended. Abdominal Aorta: Abdominal portion non-dilated. Atherosclerosis. Bowel: There is diverticulosis in the colon. There is bowel wall thickening in the mid sigmoid colon with pericolonic inflammatory stranding consistent with acute diverticulitis. There is no evidence of bowel obstruction. Appendix is unremarkable. Peritoneal Cavity: There is a small amount of fluid in the pelvis. No free air. Lymph Nodes: Within normal limits. Bones: Within normal limits for the patient's age. Soft Tissues: There are fat containing inguinal hernias right greater than left. PELVIS: Bladder: There is asymmetric thickening of the wall of the superior and right aspect of the urinary b ladder. This appears to be secondary to the adjacent inflamed sigmoid colon. Reproductive Organs: Unremarkable as visualized. Lymph Nodes: Within normal limits. Bones: Within normal limits for the patient's age. IMPRESSION: Acute sigmoid diverticulitis with secondary inflammatory changes in the adjacent urinary bladder. No evidence of abscess or definite free air. RADIATION DOSE DELIVERED: Total DLP DATA REPOSITORY: All CT scans at this facility are submitted to the National Radiology Data Registry (NRDR) Dose Index Registry (DIR) with the [employer] ([employer]). RADIATION OPTIMIZATION: All CT scans at this facility use at least one of these dose optimization te chniques: automated exposure control; mA and/or kV adjustment per patient size (includes targeted exa ms where dose is matched to clinical indication); or iterative reconstruction.
--- NOTE | 2023-03-16 12:06 | ED.GENADUL_ITS ---
Discharge Plan Disposition Patient Disposition: Home Condition: Good Discharge Details Clinical Impression: Diverticulitis Primary Care Provider: Patrick Potter ED Provider: Gloria Matthew Home Meds and New Rx's Prescriptions: New oxycodone 5 mg tablet 5 mg PO Q8H PRNQty: 14 0RF amoxicillin-pot clavulanate 875-125 mg tablet 1 tab PO BID Qty: 20 0RF No Action losartan 100 MG tablet 100 mg PO DAILY atorvastatin [Lipitor] 40 MG tablet 40 mg PO HS aspirin 325 mg Tablet 325 mg PO DAILY Hold Instructions: Changed by Provider Jean DVT-PE Treat 30D Start 5 mg (74 tabs) tablets,dose pack 5 mg PO BID Qty: 74 0RF Rx Instructions: Take 10 mg orally twice daily x 7 days: Then 5mg orally twice daily as per package instructions Discharge Instructions Instructions: Diverticulitis (ED), Diverticulitis Diet (ED) Additional Instructions: Tylenol over the counter for pain, follow the directions on the bottle. Oxycodone as needed for pain. Antibiotics twice a day for 10 days, until they are all gone. Liquid diet. Call your primary care doctor on Saturday to schedule an appointment within the next 3 days to follow up on your visit here. Return to the emergency department for new or worsening symptoms including fever, worsening pain, vomiting, general malaise, or if you have any other concerns. Referrals: Patrick Potter [Primary Care Provider] - Medical Decision Making 73yo M with hx DVT, HTN, HLD, presenting for lower abdominal pain. Has had intermittent lower/suprapubic pain for the past several days to several weeks (unsure how long), over the past day has become constant. Vital signs reassuring, physical exam with suprapubic and RLQ tenderness to palpation with no peritoneal signs. Right inguinal hernia present with straining, easily reducible, no indication of strangulation or incarceration. Not septic. No testicular pain to suggest torsion or other testicular pathology. No pain out of proportion to suggest mesenteric ischemia. IV tyelnol and IV morphine for pain. Labs reviewed as below, CBC & CMP reassuring with no actionable abnormalities, normal lactic, UA negative. No indication of UTI or nephrolithiasis. CT independently reviewed, no bowel obstruction on my view agree with radiology read below with diverticulitis and inflammation near bladder. On reassessment he reports pain has much improved, vital signs remain reassuring and he has no peritoneal signs on exam. Given his age, he would be appropriate for inpatient treatment however he strongly prefers to go home which is not unreasonable. Strict return precautions were reviewed as well as the importance of following up with his PCP and being seen in the office Saturday or Saturday. Will plan for diverticulitis diet at home, PO tylenol and PO oxycodone, course of amox-clauv. Discharged home; discharge instructions including return precautions were reviewed with patient who verbalized understanding. All questions were answered and they are in full agreement with the plan. Imaging Data Radiologic Study: Imaging: CT Scan Radiologist's impression: IMPRESSION: 1. Acute diverticulitis of the sigmoid colon in the right lower quadrant and adjacent to the dome of the bladder with associated inflammatory changes of the bladder as discussed above. 2. Multiple additional findings as discussed above. Lab Data Lab results reviewed: Yes I reviewed the patient's lab results. Labs: Laboratory Tests Range/Units 03/16/23 03/16/23 03/16/23 11:55 12:10 13:15 WBC (4.4-10.8) 10^3/uL 9.96 RBC (4.36-5.78) 10^6/uL 4.96 Hgb (13.5-17.5) g/dL 15.9 Hct (40.0-50.0) % 46.0 MCV (80-95) fL 93 MCH (27.0-33.0) pg 32.1 MCHC (32.0-36.0) % 34.6 RDW (11.8-14.1) % 13.4 Plt Count (130-400) 10^3/uL 238 MPV (8.0-11.0) fL 9.3 Immature Gran % 0.6 Neutrophils % 75.1 Lymphocytes % 13.2 Monocytes % 8.7 Eosinophils % 1.7 Basophils % 0.7 Nucleated RBC % (0.0-0.3) % 0.0 Absolute Neutrophils (1.2-6.7) 10^3/uL 7.48 H Absolute Lymphocytes (1.2-3.4) 10^3/uL 1.31 Absolute Monocytes (0.1-0.8) 10^3/uL 0.87 H Absolute Eosinophils (0.0-0.7) 10^3/uL 0.17 Absolute Basophils (0.0-0.2) 10^3/uL 0.07 VBG Lactate (0.6-1.4) mmol/L 0.8 Sodium (136-145) mmol/L 137 Potassium (3.5-5.1) mmol/L 4.2 Chloride (98-107) mmol/L 100 Carbon Dioxide (21.0-32.0) mmol/L 28.0 Anion Gap (3-11) mmol/L 9.0 BUN (7-18) mg/dL 14 Creatinine (0.70-1.30) mg/dL 1.1 Est GFR (CKD-EPI 2020) (mL/min/1.73m2) 71.77 Glucose (74-106) mg/dL 115 H Calcium (8.5-10.1) mg/dL 9.0 Total Bilirubin (0.2-1.0) mg/dL 0.7 AST (15-37) U/L 17 ALT (16-63) U/L 39 Alkaline Phosphatase (46-116) U/L 74 Total Protein (6.4-8.2) g/dL 7.7 Albumin (3.4-5.0) g/dL 3.8 Urine Color (Yellow) Yellow Urine Clarity (Clear) Clear Urine pH (5-8) 6.0 Ur Specific [place] (1.005-1.025) <= 1.005 Urine Protein (Negative) mg/dL Negative Urine Ketones (Negative) mg/dL Negative Urine Blood (Negative) Negative Urine Nitrite (Negative) Negative Urine Bilirubin (Negative) Negative Urine Urobilinogen (Up to 0.2) mg/dL 0.2 Ur Leukocyte Esterase (Negative) Negative Urine Glucose (Negative) mg/dL Negative HPI General Mode of arrival: ambulatory . Date/Time Provider Initiated Documentation: 03/16/23 11:54 . Limitations to Documentation: no limitations . Information obtained by: patient . HPI Narrative: 73yo M with hx DVT, HTN, HLD, presenting for lower abdominal pain. Has had intermittent lower/suprapubic pain for the past several days to several weeks (unsure how long), over the past day has become constant. Pain is sharp, radiates into his right hip, and is worse with movement. Has not taken anything at home for pain. Normal bowel movement yesterday. No nausea, vomiting, diarrhea, constipation, bloody stool, dysuria, hematuria, or testicular pain. He is otherwise in his usual state of health with no fevers, chills, rash, chest pain, shortness of breath, or other concerns. Related Data Home Medications Medication Instructions Recorded Confirmed losartan 100 mg tablet 100 mg PO DAILY 01/21/13 03/16/23 atorvastatin 40 mg tablet (Lipitor) 40 mg PO HS 01/18/17 03/16/23 aspirin 325 mg tablet 325 mg PO DAILY 03/30/20 03/16/23 apixaban 5 mg (74 tabs) tablets in 5 mg PO BID DVT #74 dose pk 12/15/22 03/16/23 a dose pack (Eliquis DVT-PE Treat 30D Start) amoxicillin 875 mg-potassium 1 tab PO BID #20 tabs 03/16/23 clavulanate 125 mg tablet oxycodone 5 mg tablet 5 mg PO Q8H PRN #14 tabs 03/16/23 Previous Rx's Medication Instructions Recorded apixaban 5 mg (74 tabs) tablets in 5 mg PO BID DVT #74 dose pk 12/15/22 a dose pack (Eliquis DVT-PE Treat 30D Start) amoxicillin 875 mg-potassium 1 tab PO BID #20 tabs 03/16/23 clavulanate 125 mg tablet oxycodone 5 mg tablet 5 mg PO Q8H PRN #14 tabs 03/16/23 Allergies Allergy/AdvReac Type Severity Reaction Status Date / Time cephalexin [Cephalexin] Allergy Intermediate RASH Unverified 03/16/23 11:45 General Stated Complaint: Abd Prob EDI: 3 Review of Systems Narrative: see HPI PFSH All Active Problems (Updated 03/16/23 @ 14:36 by Gloria Matthew MD) Diverticulitis (Chronic) Bilateral chronic otorrhea (Acute 03/30/15) Medical History (Updated 03/16/23 @ 14:36 by Gloria Matthew MD) HTN (hypertension) Ventricular hypertrophy Nutcracker esophagus Hyperlipidemia History of Lyme disease Surgical History (Updated 06/18/18 @ 09:30 by Marilee Francis DO) Biceps tendon rupture with repair H/O shoulder surgery Kidney stones with surgery Hemorrhoidal Banding (02/06/17) Social History Smoking/Tobacco Use Status: Never Smoking risk assessment performed?: Yes Alcohol Intake: current Alcohol Intake frequency: a few times a week Drug use: Never Substance use type: does not use Do you feel safe at home: Yes Do you feel safe in your relationship?: Yes Exam Narrative Exam Narrative: General: Alert, well appearing, well nourished Head: Normocephalic, atraumatic Neck: Trachea midline, Neck supple. Cardiac: RRR, no murmurs appreciated Resp: No respiratory distress. CTAB. Abd: Soft, non-distended. Slight RLQ tenderness to palpation with no rebound or guarding. : + suprapubic tenderness. No CVA tenderness. Palpable right inguinal hernia with straining, soft, no overlying skin changes, easily reducible. Extremities: No deformities. No peripheral edema. Neurologic: GCS 15. Moves all extremities freely against gravity Course Vital Signs Vital signs: Vital Signs Temperature 36.7 C 03/16/23 11:42 Pulse 96 H 03/16/23 11:42 Respiratory Rate 18 03/16/23 11:42 Blood Pressure 153/96 H 03/16/23 11:42 Pulse Oximetry 98 03/16/23 11:42 Temperature 36.7 C 03/16/23 11:42 Temperature Source Skin 03/16/23 11:42 Pulse 96 H 03/16/23 11:42 Respiratory Rate 18 03/16/23 11:42 Respiratory Effort Normal, Non-Labored 03/16/23 11:47 Blood Pressure 153/96 H 03/16/23 11:42 Blood Pressure Position Supine 03/16/23 11:42 Pulse Oximetry 98 03/16/23 11:42 Oxygen Delivery Method Room Air 03/16/23 11:42 Oxygen Flow Rate 0 03/16/23 11:42 Pain Level 7 03/16/23 11:42
[2023-03-16 12:14] LABS: Lactate 0.8 mmol/L (0.6-1.4)
[2023-03-16 12:14] LABS: Abs Immature Grans 0.06 10^3/uL (0.0-0.06); Absolute Basophil Count 0.07 10^3/uL (0.0-0.2); Absolute Eosinophil Count 0.17 10^3/uL (0.0-0.7); Absolute Lymphocyte Count 1.31 10^3/uL (1.2-3.4); Absolute Monocyte Count 0.87 10^3/uL (0.1-0.8); Absolute Neutrophil Count 7.48 10^3/uL (1.2-6.7); Basophils % 0.7; Eosinophils % 1.7; HGB 15.9 g/dL (13.5-17.5); Immature Grans % 0.6; Lymphocytes % 13.2; MCH 32.1 pg (27.0-33.0); MCHC 34.6 % (32.0-36.0); MCV 93 fL (80-95); MPV 9.3 fL (8.0-11.0); Monocytes % 8.7; Neutrophils % 75.1; Platelet Count 238 10^3/uL (130-400); RBC 4.96 10^6/uL (4.36-5.78); RDW 13.4 % (11.8-14.1); RDW-SD 46.1 fL; WBC 9.96 10^3/uL (4.4-10.8)
[2023-03-16] MEDS: MORPHine 10 MG/ML VIAL 4 MG IVP (12:16)
[2023-03-16] MEDS: ACETAMINOPHEN 1,000 MG/100 ML BTL 400 MG IVPB (12:16)
[2023-03-16 12:38] LABS: ALT 39 U/L (16-63); AST 17 U/L (15-37); Albumin 3.8 g/dL (3.4-5.0); Alkaline Phosphatase 74 U/L (46-116); BUN 14 mg/dL (7-18); Bilirubin, Total 0.7 mg/dL (0.2-1.0); CREATININE 1.1 mg/dL (0.70-1.30); Chloride 100 mmol/L (98-107); Estimated GFR 71.77 (mL/min/1.73m2); Glucose 115 mg/dL (74-106); Potassium 4.2 mmol/L (3.5-5.1); Sodium 137 mmol/L (136-145); Total Protein 7.7 g/dL (6.4-8.2)
[2023-03-16] MEDS: Omnipaque 350 MG/ML 100 ML BTL IJ (12:55)
[2023-03-16 13:10] VITALS: BP 118/62; PULSE 82; RESP 18; O2SAT 96
[2023-03-16 13:24] LABS: Bilirubin Negative (Negative); Blood Negative (Negative); Clarity Clear (Clear); Glucose Negative (Negative); Ketones Negative (Negative); Leukocyte Esterase Negative (Negative); Nitrite Negative (Negative); Specific Gravity <= 1.005 (1.005-1.025); Urobilinogen 0.2 mg/dL (Up to 0.2)
--- NOTE | 2023-03-16 14:21 | DI.VRAD_ITS ---
PROCEDURE INFORMATION: Exam: CT Abdomen And Pelvis With Contrast Exam date and time: 03/16/2023 12:49 PM Age: 73 years old Clinical indication: Pain; Other: Rlq TECHNIQUE: Imaging protocol: Computed tomography of the abdomen and pelvis with contrast. COMPARISON: US SOFT TISS EXTREMITY/GROIN 30/03/2020 16:24 FINDINGS: Lungs: Mild bibasilar atelectasis. Coronary arteries: Mild calcified coronary arteries. Liver: Decreased attenuation of the liver compared to the spleen consistent with hepatic steatosis. Gallbladder and bile ducts: Normal. No calcified stones. No ductal dilation. Pancreas: Normal. No ductal dilation. Spleen: See Liver finding. Adrenal glands: Normal. No mass. Kidneys and ureters: Simple subcentimeter superior right renal cyst. Stomach and bowel: Normal caliber small bowel. Moderate solid stool volume. Diverticulosis of the sigmoid colon with wall thickening and steff-sigmoidal fat infiltration and punctate air in the diverticuli around the colon. The focal right lower quadrant inflammatory process of the sigmoid colon is intimately associated with the dome of the right bladder with bladder wall thickening and infiltration of the fat around the bladder consistent with adjacent inflammatory changes. Appendix: No evidence of appendicitis. Intraperitoneal space: There is mesenteric stranding in the right lower quadrant. Vasculature: Atherosclerotic disease. Lymph nodes: Scattered inguinal lymph nodes. No pathologic retroperitoneal lymph nodes are mesenteric lymph nodes. Urinary bladder: See Stomach and bowel finding. Reproductive: Calcifications within the prostate. Bones/joints: Unremarkable. No acute fracture. Soft tissues: Fat distension of the inguinal canals larger on the right than left. IMPRESSION: 1. Acute diverticulitis of the sigmoid colon in the right lower quadrant and adjacent to the dome of the bladder with associated inflammatory changes of the bladder as discussed above. 2. Multiple additional findings as discussed above. Dictated and Authenticated by: Almaz Barreto MD. Ordering:RAYMOND Castro MD
== END 2023-03-16 14:49 | disposition home or self-care (01) ==
PROVIDERS: Emergency Provider Student in an Organized Health Care Education/Training Program; PCP Internal Medicine
DX: K57.32 Diverticulitis of large intestine without perforation or abscess without bleeding (principal)
CPT/HCPCS: 80053; 99285; 74177; 81003; 83605; 85025; 99284; J0131; J2270; J3490

== ENCOUNTER 2023-03-20 16:46 | Outpatient (REF) | payer MEDICARE, SELFPAY ==
[2023-03-20 20:09] LABS: Abs Immature Grans 0.04 10^3/uL (0.0-0.06); Absolute Basophil Count 0.04 10^3/uL (0.0-0.2); Absolute Eosinophil Count 0.34 10^3/uL (0.0-0.7); Absolute Lymphocyte Count 1.29 10^3/uL (1.2-3.4); Absolute Monocyte Count 0.87 10^3/uL (0.1-0.8); Absolute Neutrophil Count 5.05 10^3/uL (1.2-6.7); Basophils % 0.5; ESR 21 mm/hr (0-20); Eosinophils % 4.5; HCT 46.6 % (40.0-50.0); HGB 15.8 g/dL (13.5-17.5); Immature Grans % 0.5; Lymphocytes % 16.9; MCH 30.7 pg (27.0-33.0); MCHC 33.9 % (32.0-36.0); MCV 91 fL (80-95); MPV 9.1 fL (8.0-11.0); Monocytes % 11.4; Neutrophils % 66.2; Platelet Count 303 10^3/uL (130-400); RBC 5.14 10^6/uL (4.36-5.78); RDW 12.7 % (11.8-14.1); RDW-SD 42.4 fL; WBC 7.63 10^3/uL (4.4-10.8)
[2023-03-20 20:50] LABS: Hemoglobin A1C 5.5 % (<5.7)
== END 2023-03-20 16:47 | disposition home or self-care (01) ==
LOC: NCHCN 16:46
PROVIDERS: PCP Internal Medicine; Visit Provider Internal Medicine
DX: R73.9 Hyperglycemia, unspecified (principal); M46.46 Discitis, unspecified, lumbar region; K57.92 Diverticulitis of intestine, part unspecified, without perforation or abscess without bleeding
CPT/HCPCS: 85652; 83036; 85025; 86140

== ENCOUNTER → 2023-03-21 12:47 | Outpatient (CLI) | payer MEDICARE, SELFPAY ==
--- NOTE | 2023-03-21 | DI.MRI_ITS ---
Exam(s) MR LUMBAR SPINE WO/W EXAM: MR LUMBAR SPINE WO/W CLINICAL HISTORY: LUMBAR DISCITIS, M46.46. TECHNIQUE: Multiplanar multisequence MRI of the Lumbar spine was performed. Both pre and post contra st infused sequences were performed. Contrast injected was Dotarem 17 mL COMPARISON: CT CT ABDOMEN PELVIS W from 03/16/2023 FINDINGS: Five lumbar vertebrae are presumed. Conus medullaris is at normal level. There is no evidence of conus mass nor subjacent clumping of in trathecal nerve roots to suggest arachnoiditis. The distal thecal sac appears unremarkable.There is no evidence of Tarlov intrasacral cysts nor other significant findings within the sacral canal Bones:There are no fractures nor ominous osseous lesions in the lumbar vertebral bodies and visualize d sacrum. With respect to the individual levels... T12-L1: Unremarkable L1-2: Chronic decreased disc height and signal. Anterior osteophytes. There is Modic type 2 sub end plate fatty marrow changes on both sides of this disc space. No abnormal signal within the disc itse lf. There is mild annular bulging without a dominant disc herniation. Central canal dimensions are lower normal. There is no foraminal stenosis. Facet joints unremarkable. L2-3: Normal disc height. Small Schmorl's node invagination in the inferior endplate of L2 evident, without bone marrow edema surrounding this region. No significant disc herniation. No central canal stenosis. No foraminal stenosis at this level. L3-4: Normal disc height. Modic type 2 sub endplate fatty marrow changes. Mild annular bulging with out a dominant disc herniation. Central canal dimensions within normal limits. No significant carey inal stenosis. No significant facet arthropathy. L4-5: There is mild decreased disc height on the right side of the disc space. There is a posterolat eral right disc protrusion which extends posteriorly 3 mm and is approximately 1.7 cm wide, compressi ng the thecal sac and right lateral recess region. There are Modic type 1 sub endplate marrow edema at signal changes on both sides of the disc space over the disc herniation region. There is also enh ancement over this area following contrast injection consistent with inflammatory change related to t he disc herniation. However, there is no abnormal enhancement within the actual disc itself. The di sc herniation does not extend into the exiting neural foramina which are patent bilaterally. Facet j oints at this level appear relatively unremarkable. L5-S1: This level exhibits normal disc height and signal. No disc herniation or central canal stenos is. No foraminal stenosis. Minimal facet joint degenerative changes. Soft tissues: No evidence of paraspinal nor epidural fluid collection IMPRESSION: 1. The main findings here at L4-5 level where there is a right paracentral disc herniation extending posteriorly 3 mm and approximately 17 mm wide, compressing the thecal sac and right lateral recess at this level but not extending into the exiting neural foramen. There is some enhancement around the herniated disc (but not within the actual disc) at this level. Also some bone edema and enhancement within the overlying sub endplate regions of L4 and L5 but without bone destruction. The enhancement in this region appears to be more in keeping with inflammatory change related to the disc herniation more so than an infectious process. There is no evidence of epidural fluid collection nor paraspina l abscess. 2. Mild findings at other disc spaces as described above. 3. No evidence of discitis/osteomyelitis, as per request. DATA REPOSITORY:
[2023-03-21] MEDS: Gadoterate meglumine 20 ML SYRINGE IVP (15:08)
[2023-03-21] MEDS: Normal Saline Flush 10 ML SYR IJ (15:09)
--- NOTE | 2023-03-21 17:01 | DI.VRAD_ITS ---
PROCEDURE INFORMATION: Exam: MR Lumbar Spine Without and With Contrast Exam date and time: 03/21/2023 2:58 PM Age: 73 years old Clinical indication: Other: Lumbar discitis, m46.46; Patient HX: Sigmoid diverticulitis TECHNIQUE: Imaging protocol: Magnetic resonance imaging of the lumbar spine without and with contrast. COMPARISON: CT ABDOMEN PELVIS W 03/16/2023 12:49 PM FINDINGS: Mild Modic type 1 edematous degenerative endplate change anteriorly at T11-T12 and posteriorly at L4-L5. No evidence of lumbar spine osteomyelitis/discitis. Lumbar vertebral body heights are maintained. No cord compression. No abnormal cord signal. Conus medullaris terminates at the L1 level. Paravertebral soft tissues are unremarkable. L1-L2: Broad-based disc bulge causes mild canal narrowing and mild bilateral foraminal narrowing. L2-L3: Broad-based disc bulge causes mild bilateral foraminal narrowing. No significant canal narrowing. L3-L4: No significant canal or foraminal narrowing. L4-L5: Small right paracentral disc protrusion superimposed over broad-based disc bulge causing mild canal narrowing and slightly effacing the right lateral recess. No significant foraminal narrowing. L5-S1: No significant canal or foraminal narrowing. IMPRESSION: 1. No acute findings in the lumbar spine. 2. Mild spondylotic changes of the lumbar spine, as detailed above. Please refer to prior CT abdomen pelvis performed on 03/16/2023 for additional findings. Dictated and Authenticated by: Keith Posada MD. Ordering:JEAN-PAUL Nguyen MD
== END ==
PROVIDERS: PCP Internal Medicine; Visit Provider Internal Medicine
DX: M51.26 Other intervertebral disc displacement, lumbar region (principal)
CPT/HCPCS: 72158

== ENCOUNTER 2023-03-28 18:56 | Outpatient (REF) | payer MEDICARE, SELFPAY ==
[2023-03-28 19:04] LABS: Abs Immature Grans 0.07 10^3/uL (0.0-0.06); Absolute Basophil Count 0.09 10^3/uL (0.0-0.2); Absolute Eosinophil Count 0.38 10^3/uL (0.0-0.7); Absolute Lymphocyte Count 1.88 10^3/uL (1.2-3.4); Absolute Monocyte Count 0.77 10^3/uL (0.1-0.8); Absolute Neutrophil Count 5.17 10^3/uL (1.2-6.7); Basophils % 1.1; ESR 17 mm/hr (0-20); Eosinophils % 4.5; HCT 47.5 % (40.0-50.0); HGB 16.4 g/dL (13.5-17.5); Immature Grans % 0.8; Lymphocytes % 22.5; MCH 31.5 pg (27.0-33.0); MCHC 34.5 % (32.0-36.0); MCV 91 fL (80-95); MPV 9.2 fL (8.0-11.0); Monocytes % 9.2; Neutrophils % 61.9; Platelet Count 372 10^3/uL (130-400); RDW 12.7 % (11.8-14.1); RDW-SD 42.8 fL; WBC 8.36 10^3/uL (4.4-10.8)
[2023-03-28 19:23] LABS: ALT 47 U/L (16-63); AST 28 U/L (15-37); Albumin 3.9 g/dL (3.4-5.0); Alkaline Phosphatase 65 U/L (46-116); Anion Gap 8.2 mmol/L (3-11); BUN 19 mg/dL (7-18); Bilirubin, Total 0.4 mg/dL (0.2-1.0); C-Reactive Protein 0.25 mg/dL (0.0-0.3); CO2 25.8 mmol/L (21.0-32.0); CREATININE 1.2 mg/dL (0.70-1.30); Calcium 9.3 mg/dL (8.5-10.1); Chloride 100 mmol/L (98-107); Creatine Kinase 98 U/L (39-308); Estimated GFR 64.65 (mL/min/1.73m2); Glucose 102 mg/dL (74-106); Lipase 98 U/L (16-77); Potassium 4.2 mmol/L (3.5-5.1); Sodium 134 mmol/L (136-145)
== END 2023-03-28 18:57 | disposition home or self-care (01) ==
LOC: NCHCN 18:56
PROVIDERS: PCP Internal Medicine; Visit Provider Internal Medicine
DX: R10.9 Unspecified abdominal pain (principal)
CPT/HCPCS: 80053; 82550; 83690; 85652; 85025; 86140

== ENCOUNTER → 2023-05-15 01:38 | Outpatient (CLI) | payer MEDICARE, SELFPAY ==
--- NOTE | 2023-05-15 12:36 | DI.US_ITS ---
APPROVED REPORT EXAM: Comprehensive 2D, Doppler, and color-flow Echocardiogram Patient Location: Out-Patient Court Operations Clerk: Mando Eisenberg RDCS (AE) Indications: tachycardia, history of blood clots, mitral regurg Other Information Study Quality: Good Conclusion 1.Mildly dilated left atrium,other chambers normal 2.Mild concentric LVH,normal ,systolic function without wall motion abnormality,EF65% 3.Anatomically normal valves.Mild MR,trace TR 4.No intracardiac shunt 5.No pericardial effusion. Wall motion Left Ventricle The left ventricle is normal size. The left ventricular systolic function is normal. The left ventric ular ejection fraction is within the normal range. There is normal left ventricular wall thickness. T here is normal LV segmental wall motion. There is no ventricular septal defect visualized. LVEF is 65 %. Right Ventricle The right ventricle is normal size. The right ventricular systolic function is normal. Unable to asse ss PA pressure. Atria The left atrium size is normal. The right atrium size is normal. The interatrial septum is intact wit h no evidence for an atrial septal defect. Aortic Valve The aortic valve is normal in structure. Aortic valve is trileaflet. There is no aortic valvular sten osis. No aortic regurgitation is present. Mitral Valve The mitral valve is normal in structure. No evidence of mitral valve stenosis. Mild mitral regurgitat ion. Tricuspid Valve The tricuspid valve is normal in structure. There is no tricuspid valve stenosis. Trace tricuspid reg urgitation. Unable to assess PA pressure. Pulmonic Valve The pulmonary valve is normal in structure. There is no pulmonic valvular stenosis. There is no pulmo tati valvular regurgitation. Great Vessels The aortic root is normal in size. The ascending aorta is mildly dilated. IVC is normal in size and c ollapses >50% with inspiration. Pericardium There is no pericardial effusion. 2D Dimensions IVSD d PLAX 0.91 cm M: 0.6-1.2 Ao Root d 3.15 cm M: 3.1 - 3.7 LVPW d PLAX 0.87 cm M: 0.6 - 1.2 Ao Asc Diam d 3.68 cm M: 2.6 - 3.4 LVID d PLAX 4.22 cm M: 4.2 - 5.8 LVDs 2.70 cm M: 2.5 - 4.0 LV EF Teichholz 65.9 % FS 35.93 % LV EDV (Teich) 79.2 mL LV ESV (Teich) 27.0 mL Stroke Vol Index (Teich) 26.78 M-Mode TAPSE 1.84 cm (M/F) >1.7 Auto EF LV EDV A4C 91.6 mL LV EDV A2C 123.8 mL LV EDV BP 106.7 mL LV ESV A4C 32.5 mL LV ESV A2C 43.5 mL LV ESV BP 37.5 mL LVEF(%) A4C 64.5 % LVEF(%) A2C 64.9 % LVEF(%) BP 64.8 % LV SV A4C 59.1 ml LV SV A2C 80.3 ml LV SV BP 69.2 ml LV CO A4C 3.3 L/min LV CO A2C 4.2 L/min LV CO BP 3.7 L/min HR A4C 55.88 BPM HR A2C 52.18 BPM LV EDV Index (BP) LA Volume LA Length A4C 5.3 cm LA Length A2C 5.2 cm LA Area A4C s 13.94 cm2 LA Area A2C s 13.16 cm2 LA Vol A4C A-L 31.16 mL LA Vol A2C A-L 28.09 mL LA Vol Biplane A-L 29.8 mL LA Vol/BSA A4C A-L LA Vol/BSA A2C A-L LA Vol/BSA BP A-L 15.3 mL/m2 LA Vol A4C MOD 27.1 mL LA Vol A2C MOD 26.8 mL LA Vol BP MOD 26.1 mL RA Volume RA Area A4C 10.5 cm2 RA ESV A4C (A-L) 21.3mL RA Vol/BSA A4C A-L RA Length A4C 4.4 cm RA ESV A4C (MOD) 20.2mL LV Diastology MV E' medial 0.070 (>0.07 m/s) MV E Vmax 0.91 (0.4-1.3 m/s) MV E/E' MED 12.99 (<14) MV A Vmax 0.85 (0.4-1.3 m/s) MV E' lateral 0.073 (>0.1 m/s) E/A Ratio 1.1 MV E/E' LAT 12.36 (<14) MV E' Average 0.072 m/s MV E/E'(average) 12.67 Aortic Valve AoV Vmax 1.43 m/s LVOT Vmax 1.10 m/s AoV Peak Grad 8.2 mmHg LVOT Peak Grad 4.8 mmHg AoV Area (Vmax) 2.61 cm2 LVOT VTI 0.248 m AoV VTI 0.329 m LVOT Mean Grad 2.6 mmHg AoV Mean Jose Miguel. 1.07 m/s LVOT SV 84.60 mL AoV Mean Grad 4.9 mmHg LVOT Diam s 2.05 cm AoV Area (VTI) 2.57 cm2 Velocity Ratio 0.77 Mitral Valve MV DT 230 (160-240 msec) Pulmonary Valve PV Vmax 0.99 (0.5-1.5 m/s) RVOT Vmax 0.76 m/s PV Peak Grad 3.9 mmHg RVOT Peak Gr. 2.3 mmHg PV Mean Jose Miguel 0.69 m/s RVOT VTI 0.188 m PV Mean Grad 2.2 mmHg RVOT Mean Gr. 1.4 mmHg
== END ==
PROVIDERS: PCP Internal Medicine; Visit Provider Internal Medicine
DX: R00.0 Tachycardia, unspecified (principal)
CPT/HCPCS: 93306

== ENCOUNTER → 2023-05-16 11:21 | Outpatient (BNVA) | payer MEDICARE, SELFPAY | PROVIDERS: PCP Internal Medicine; Referring Provider Internal Medicine; Visit Provider Physical Therapy Assistant | DX: Z12.11 Encounter for screening for malignant neoplasm of colon (principal); Z86.010 Personal history of colon polyps ==

== ENCOUNTER 2023-08-09 06:05 | Day surgery (SDC) | payer MEDICARE, SELFPAY ==
--- NOTE | 2023-08-08 13:40 | W.PM.HP.N ---
Date of service: 08/09/23 Time of Service: 07:20 Assessment and Plan Assessment and plan (1) DVT (deep venous thrombosis): Status: Chronic (2) Adenomatous polyps: Status: Acute Assessment and plan: Plan: Colonoscopy w/ general & natural airway. The?patient will be scheduled by my office. Informed consent is obtained for the procedural (explained in simple layman's terms that?the pt and/or family could understand) explaining risks vs benefits and alternatives to the procedure and consequences if we do not do the procedure and need/rational for the procedure. Risks include but are not limited to: bleeding, infection, perforation of colon.? This would necessitate emergency surgery to repair the damage w/ possible ostomy; and other associated complications w/ the required surgery. ? Also complications of anesthesia including aspiration, SD/CVA/, inability to complete the procedure. I discussed with the?patient would they could expect during the procedure, post procedure and recovery time and risks.? The patient understands that they need to have a ride home after the procedure.? Generally Colonoscopy does not require antibiotics prophylaxis, (3) HTN (hypertension): (4) Ventricular hypertrophy: (5) Hyperlipidemia: (6) Factor 5 Leiden mutation, heterozygous: (7) Nutcracker esophagus: (8) CKD (chronic kidney disease) stage 2, GFR 60-89 ml/min: History of Present Illness Narrative: Patient is here today for colonoscopy for adenomatous pollyps.??? They completed a bowel prep with just a clear yellow residual effluent.? They not having any chest pain or shortness of breath, currently.? They are not experiencing any fever or chills.? They deny any productive cough or upper respiratory tract infection signs or symptoms.? They are not having abdominal pain, or nausea and vomiting.? They have not had any changes in medications, past medical history or past surgical history since previously being seen in the office. They have not had any accidents or have been in the ER since the clinic pre-operative evaluation. ??I reviewed the procedure with the patient today, including risks and benefits of the procedure, and what they could expect at home for recovery.? All questions are answered to the patient?s satisfaction today, and they are stable to proceed with the proposed procedure. His last dose of lovenox was. His last screening was in 2014 , which was remarkable for tubular adenomatous polyps x 3. He denies a family history of colon cancer. He has not had any bowel habit changes. -Discussed colonoscopy bowel prep as well as the procedure. Discussed possible complications of the procedure to include bleeding, pain, perforation, missed small lesion/polyp, sore throat, aspiration and adverse reaction to the medications. Questions were answered to patient?s satisfaction. No guarantees were implied or given. Anesthesia: general (without airway) Previous surgical intolerances: None Previous surgical complications: None Pulmonary risk factors: None PFT's: None Planned procedure: Yes Sleep apnea risks: No Can climb one flight of stairs (12-13 steps) in less than 30 seconds without stopping and without symptoms: Yes The surgery proposed for this patient is: Low risk Active cardiac conditions: None ECHO: None Stress Test: None Active risk factors: None ASA (acetylsalicylic acid): Yes Beta blockers: No Anti-coagulation: Eliquis Medications to be held: Eliquis will need to be held prior his procedure. Will contact his PCP office, for the patient will require lovenox bridge given his significant history of DVTs. Aspirin will need to be held x 5 days prior prior Review of Systems All systems reviewed & are unremarkable except as noted in HPI and below PFSH All Active Problems Adenomatous polyps (Acute) DVT (deep venous thrombosis) (Chronic) X 3 unprovoked. Mother had blood clots. Twin brother has history of blood clots. Bilateral chronic otorrhea (Acute 03/30/15) Medical History Osteoarthritis of left knee Arthritis of shoulder region, left Arthritis of hand Basal cell carcinoma, face Hemorrhoids CKD (chronic kidney disease) stage 2, GFR 60-89 ml/min Inguinal hernia Factor 5 Leiden mutation, heterozygous HTN (hypertension) Ventricular hypertrophy leftbasal Nutcracker esophagus Hyperlipidemia History of Lyme disease Surgical History History of colonoscopy Biceps tendon rupture with repair H/O shoulder surgery Kidney stones with surgery Hemorrhoidal Banding (02/06/17) Social History Smoking/Tobacco Use Status: Never Smoking risk assessment performed?: Yes Alcohol Intake: current Alcohol Intake frequency: a few times a week Drug use: Never Substance use type: does not use Housing: house Do you feel safe at home: Yes Do you feel safe in your relationship?: Yes Meds Allergies and Home Medications Allergies Allergy/AdvReac Type Severity Reaction Status Date / Time cephalexin [Cephalexin] Allergy Intermediate RASH Verified 08/09/23 06:21 Home Medications Medication Instructions Recorded Confirmed Type losartan 100 mg tablet 100 mg PO DAILY 01/21/13 08/09/23 History atorvastatin 40 mg tablet (Lipitor) 40 mg PO HS 01/18/17 08/09/23 History apixaban 5 mg (74 tabs) tablets in 5 mg PO BID DVT #74 dose pk 12/15/22 08/09/23 Rx a dose pack (EliSecond Genome DVT-PE Treat 30D Start) enoxaparin 80 mg/0.8 mL 80 mg (0.8 mL) subcut Q12H #8 mL 05/17/23 08/09/23 Rx subcutaneous syringe (Lovenox) Exam Narrative Exam Narrative: PHYSICAL EXAM GENERAL APPEARANCE: Alert, healthy appearance, oriented, x 3,? in no acute distress HYDRATION: Well hydrated HEAD, EYES, EARS, NECK, THROAT: Head is normocephalic, pupils equal, round, reactive to light and accommodation, ocular movement intact, sclera clear and no jaundice. ?Dentition intact. LUNGS: normal respiration/normal chest excursion. ?Clear to auscultation bilaterally. ?No wheeze. ?HEART: Regular rate and rhythm. no murmurs ABDOMEN: soft and non-tender to palpation.? Normal bowel sounds.? Time Spent Time spent with Patient: <40 minutes Time was spent: preparing to see the patient(eg.review tests), obtaining and/or reviewing separately otained hiistory, ordering medications,tests, procedures, referring, communicating with other health assisted living care manager, indepentently interpreting results, counseling the patient and care coordination
--- NOTE | 2023-08-08 13:45 | COLE_ITS ---
Date of service: 08/09/23 Time of Service: 08:30 Colonoscopy Report Date of procedure: 08/09/23 Pre-op diagnosis general: Adenomatous polyps Post-op diagnosis procedure note: other (External hemorrhoids/diverticula/polyps) Surgeon: Chandni Garcia Anesthesia Type: General:No Airway Estimated blood loss (mL): 1 Pathology: none sent Complications: None Disposition: same day Prep: Miralax/Dulcolax Retraction Time: 27 Procedure Description: After informed consent was obtained the patient was taken to the procedure room and placed in a left decubitous position. Monitors were applied and a time out was done. The patients name, date of , procedure, allergies to medications and metal in their body was reviewed. The patient was then sedated. Once sedated and comfortable a rectal exam was done. External exam: Reveals small external hemorrhoids with no acute inflammation or thrombosis internal exam revealed a normal sphincter tone and no palpable masses. The prostate without palpable masses The scope was then introduced and retrofelexed. No internal hemorrhoids were identified. The scope was then advanced to the cecum without difficulty. The TI and appendiceal orifice were identified. He has moderate diverticular disease confined in the sigmoid colon. There is no signs of active bleeding or infection. He has x2 flat, .75 cm polyps at 70 cm. These are removed with a cold biting forcep. A clip is placed over one of the defects. He has a 0.75 cm pedunculated polyp in the rectum. This is removed with a cold biting forcep. All specimens are retrieved and no bleeding is noted.. The scope was then slowly retracted over 27 minutes back into the rectum. The scope was removed and the patient was woken up and taken back to Same day surgery in stable condition. The patient tolerated the procedure well and there were no immediate complications. Follow up: The patient should follow up in 5-7 years unless they develop changes in bowel habits or other new gastrointestinal complaints. [place] Bowel Prep [place] Bowel Prep Right Colon: 3 Left Colon: 3 Transverse Colon: 3 Total Score: 9
--- NOTE | 2023-08-08 13:46 | PDOC.DSDIS_ITS ---
Date of service: 08/09/23 Time of Service: 08:39 Discharge Plan Disposition Patient Disposition: Home Condition: Good Discharge Details Reason For Visit: colon scope Attending Provider: Chandni Garcia Primary Care Provider: Patrick Potter Home Meds and New Rx's Prescriptions: Continued losartan 100 MG tablet 100 mg PO DAILY atorvastatin [Lipitor] 40 MG tablet 40 mg PO HS enoxaparin [Lovenox] 80 mg/0.8 mL syringe 80 mg subcut Q12H Qty: 8 0RF Eliquis DVT-PE Treat 30D Start 5 mg (74 tabs) tablets,dose pack 5 mg PO BID Qty: 74 0RF Rx Instructions: Take 10 mg orally twice daily x 7 days: Then 5mg orally twice daily as per package instructions Discontinued bisacodyl [Dulcolax (bisacodyl)] 5 mg tablet,delayed release (DR/EC) 5 mg PO ONCE Qty: 4 0RF Rx Instructions: Take per colonoscopy instructions provided by ordering providers office polyethylene glycol 3350 17 gram/dose powder 17 g PO ONCE Qty: 238 0RF Rx Instructions: Take per colonoscopy instructions provided by ordering providers office Discharge Instructions Additional Instructions: [facility] Colonoscopy Post- Op Instructions Instructions for Everyone who is given Anesthesia: For your safety, please do the following for the next twenty-four (24) hours: *Do Not operate a motor vehicle (car, truck, motorcycle, etc.) *Do Not drink alcoholic beverages or use any recreational drugs for the first 24 hours or while taking pain medications. The medications in your body may have a reaction that can be dangerous. *Do Not make any important decisions or sign any important papers. Findings: -Severe diverticula -X 3 polyps Follow up: My office will send you a letter in 2 to 3 weeks time with the results of the pathology lovenox: Resume Lovenox at 6 PM tonight and last dose will be 6 AM Saturday ellequis: Resume Eliquis tonight 1. No lifting over 20 pounds or strenuous activity for the first 24 hours after your procedure. After 24 hours there are no restrictions on your activity but you may feel fatigued for a few days. 2. After you arrive home you may have a light meal and return to your normal diet as you can tolerate it without feeling sick to your stomach. 3. You may have a bloated, gaseous feeling in your belly (abdomen) after a colonoscopy. Passing gas and belching will help. Walking or lying down on your left side with your knees flexed may relieve the discomfort. Call the office at [phone] (Office) or [phone] (Hospital) right away if you notice any of the following: a.Vomiting of blood or ?coffee ground stools?. b.Rectal bleeding 1Tbsp, blood clots or continuous bleeding. c.Severe belly (abdominal) pain. d.A hard distended belly (abdomen) and an inability to pass gas. 4. Please don?t expect to have a normal BM (bowel movement) for 2-3 days after your procedure. 5. If there are questions regarding the findings of your procedure, please contact your doctor 6. If you are unable to contact your doctor with a problem, contact the hospital at [phone]. 7. Continue all your regular medications unless directed otherwise. I understand the above instructions and have no questions. Signature of Patient or Adult Escort Name of Responsible Adult Escort Signature of Nurse Date/Time Stand Alone Forms: Anesthesia Discharge Inst., Anna Adan ([facility]) Activity:: See above Diet:: See above Discharge Orders Discharge Orders: Discharge Order (Routine); Ordered 08/09/23 Ordered By: Chandni Garcia Discharge Data Discharge Date/Time-TO BE ENTERED AT DEPARTURE: 08/09/23 09:19 Discharge Comment: Pt d/c from [facility] DS: Diagnosis Discharge Diagnosis (1) DVT (deep venous thrombosis): Status: Chronic (2) Adenomatous polyps: Status: Acute Asessment and Plan: The patient is seen and examined after their colonoscopy.? The patient has been able to pass gas.? They are not having abdominal pain.? They have been able to tolerate liquids and a snack.? They do not have any nausea or vomiting.? They are not having any chest pain or shortness of breath.??? They are not having any rectal bleeding. Their vital signs have been stable-see nursing notes. We discussed findings during their colonoscopy, and any biopsies that were done/polyps that were removed. The patient will be sent a letter with any biopsy results, and when to repeat the colonoscopy.-see discharge instructions. Patient was given explicit instructions to follow-up regarding colonoscopy-refer to discharge instructions.? We reviewed resumption of medications. Patient verbalized understanding and discharged in stable and satisfactory condition- See nursing notes. (3) HTN (hypertension): (4) Ventricular hypertrophy: (5) Hyperlipidemia: (6) Factor 5 Leiden mutation, heterozygous: (7) Nutcracker esophagus: (8) CKD (chronic kidney disease) stage 2, GFR 60-89 ml/min:
[2023-08-09 06:33] VITALS: BP 136/86; PULSE 83; RESP 16; TEMP 36.5; O2SAT 96
[2023-08-09] MEDS: Lactated Ringers 1,000 ML 80 ML IV (06:36)
--- NOTE | 2023-08-09 07:09 | ANES.PREOP_ITS ---
General Info Date of Service Date Performed: 08/09/23 Height: 5 ft 6 in Weight: 90.5 kg Body Mass Index (BMI): 32.2 Surgical Procedure: Operation Date: 08/09/23 07:35 Proposed Procedure Side Surgeon p Colonoscopy Chandni Garcia DO Actual Procedure Side Surgeon p Colonoscopy Not Applicable Chandni Garcia DO Pre-Op Diagnosis Post-Op Diagnosis colon scope Meds Allergies and Home Medications Allergies Allergy/AdvReac Type Severity Reaction Status Date / Time cephalexin [Cephalexin] Allergy Intermediate RASH Verified 08/09/23 06:21 Home Medication Medication Instructions Recorded losartan 100 mg tablet 100 mg PO DAILY 01/21/13 atorvastatin 40 mg tablet (Lipitor) 40 mg PO HS 01/18/17 apixaban 5 mg (74 tabs) tablets in 5 mg PO BID DVT #74 dose pk 12/15/22 a dose pack (Eliquis DVT-PE Treat 30D Start) enoxaparin 80 mg/0.8 mL 80 mg (0.8 mL) subcut Q12H #8 mL 05/17/23 subcutaneous syringe (Lovenox) Current Visit Medications: Current Medications Generic Name Dose Route Start Last Admin Trade Name Freq PRN Reason Stop Dose Admin Hyoscyamine Sulfate 0.125 mg 08/09/23 01:44 Hyoscyamine 0.125 Mg Sl/Oral/Chew SL 09/08/23 01:43 DIRECTED PRN Ringer's Solution 1,000 mls @ 80 mls/hr 08/09/23 06:00 08/09/23 06:36 IV 08/09/23 23:59 80 mls/hr INFUSION NARCISA Administration IV Miscellaneous Supplies 1 each 08/09/23 06:00 Iv Access IV 08/09/23 23:59 DIRECTED NARCISA Ondansetron HCl 4 mg 08/09/23 01:44 Ondansetron 4 Mg/2 Ml Vial IVP 09/08/23 01:43 Q4H PRN PRN Nausea / Vomiting Sodium Chloride 0 ml 08/09/23 06:00 Normal Saline Flush 10 Ml Syr IV 08/09/23 23:59 PRN PRN Sodium Chloride 0 ml 08/09/23 06:00 Normal Saline 10 Ml Vial IJ 08/09/23 23:59 DIRECTED PRN Sterile Water 0 ml 08/09/23 06:00 Water,Injection,Sterile 10 Ml Vial IJ 08/09/23 23:59 DIRECTED PRN [facility] Active Problems Active Problems: Problem Status Onset Code Adenomatous polyps D36.9 DVT (deep venous thrombosis) I82.409 Bilateral chronic otorrhea 03/30/15 H92.13 Medical History Medical History Osteoarthritis of left knee Arthritis of shoulder region, left Arthritis of hand Basal cell carcinoma, face Hemorrhoids CKD (chronic kidney disease) stage 2, GFR 60-89 ml/min Inguinal hernia Factor 5 Leiden mutation, heterozygous HTN (hypertension) Ventricular hypertrophy leftbasal Nutcracker esophagus Hyperlipidemia History of Lyme disease Surgical History Surgical History History of colonoscopy Biceps tendon rupture with repair H/O shoulder surgery Kidney stones with surgery Hemorrhoidal Banding (02/06/17) Tobacco Smoking/Tobacco Use Status: Never Alcohol Alcohol Intake: current Alcohol intake frequency: a few times a week Substance Use Substance use: Never Substance use type: does not use Vital Signs and Lab Results Vital Signs Most Recent Vital Signs in EMR: Most Recent Vital Signs Temp Pulse Resp BP Pulse Ox 36.5 C 83 16 136/86 96 08/09/23 06:33 08/09/23 06:33 08/09/23 06:33 08/09/23 06:33 08/09/23 06:33 Lab Results Blood Type / Crossmatch: No Data to Display Complete Blood Count: No Data to Display Complete Metabolic Panel: No Data to Display Liver Function Panel: No Data to Display Coagulation Panel: No Data to Display Cardiac Panel: No Data to Display Arterial Blood Gas: No Data to Display Venous Blood Gas: No Data to Display Pancreas Panel: No Data to Display Thyroid Panel: No Data to Display Infectious Disease: No Data to Display Blood Cultures: No Data to Display Toxicology Panel: No Data to Display Imaging and Studies Imaging and Studies Study information below may be from another EMR and interpreted by another provider. Please see original notes in EMR for more complete details. Echocardiogram Summary: Date of Exam: 05/15/23 Sex: M Admission Date: 05/15/23 : 1950 Age: 73 APPROVED REPORT EXAM: Comprehensive 2D, Doppler, and color-flow Echocardiogram Patient Location: Out-Patient Brush Head Maker: Mando Eisenberg RDCS (AE) Indications: tachycardia, history of blood clots, mitral regurg Other Information Study Quality: Good Conclusion 1.Mildly dilated left atrium,other chambers normal 2.Mild concentric LVH,normal ,systolic function without wall motion abnormality,EF65% 3.Anatomically normal valves.Mild MR,trace TR 4.No intracardiac shunt 5.No pericardial effusion. Anesthesia Assessment and Plan Anesthesia History Personal History: Delayed Emergence Family History: No Family History of Anesthesia Complications Exercise Tolerance Exercise Tolerance: Metabolic Equivalents>4 Pertinent Negatives Pertinent Negatives: No Symptoms of GERD, No Major Cardiovascular Symptoms or Complaints and No Major Pulmonary Symptoms or Complaints Cardiac & Pulmonary Exam Cardiac Exam: Normal S1/S2 Heart Sounds Pulmonary Exam: Clear Bilateral Breath Sounds Implantable Cardiac Device Does patient have a Pacemaker or an ICD?: No Airway Exam Known Difficult Airway: No Mallampati Class: 2 Mouth Opening: Normal (> 3cm) Thyromental Distance: Greater than 3 cm Neck Range of Motion: Full ROM Neck Circumference: Normal Teeth Condition: Normal Dentition ASA Classification ASA Score: ASA 3 Emergency Case?: No NPO Status NPO Status: NPO Clears >2 hours, Solids >8 hours Anesthesia Plan Resuscitation Status: Full Code Anesthesia Technique: General Anesthesia Airway Planned: Natural Airway Monitors Used: Standard Monitors
[2023-08-09 07:12] VITALS: BMI 32.2
--- NOTE | 2023-08-09 07:55 | BOWEL_PTH ---
PATIENT: Jeremiah Mcclure LOC: [facility] U#:[id number] AGE/SX: 73/M ROOM: RE08/09/[address]: Chandni Garcia : 1950 BED: DIS: 08/09/2023 SPEC #: [id number] RECD: 08/09/23 12:41 STATUS: LINN REYvette #: [id number] ROBIN: 08/09/23 07:[address]: Chandni Garcia DEPT: Surgical Specimen RECD BY: Jocelyne Vasquez ENTERED: 08/09/23 12:42 SP TYPE: Bowel OTHR DR: Patrick Potter Tissues: 1 - BIOPSY BOWEL 2 - BIOPSY BOWEL Procedures: GROSS AND MICRO LEVEL 4 Comments: [id number]
[2023-08-09 08:24] VITALS: BP 107/73; PULSE 74; RESP 16; TEMP 36.2; O2SAT 93
--- NOTE | 2023-08-09 08:32 | W.ANESPOSTOP ---
Postoperative Evaluation Date, Time and Location Date Performed: 08/09/23 Time Performed: 08:32 Patient Location: Day Surgery Unit Vital Signs Most Recent Imported Vital Signs: Most Recent Vital Signs Temp Pulse Resp BP Pulse Ox 36.2 C L 74 16 107/73 93 08/09/23 08:24 08/09/23 08:24 08/09/23 08:24 08/09/23 08:24 08/09/23 08:24 Pain Score Most Recent Pain Score: Most Recent Pain Score Pain Level 0 08/09/23 08:24 Assessment Mental Status: Awake (Alert & Oriented to Patient Baseline) Airway and Respiratory Function: Patent airway with normal (patient baseline) respiratory exam Cardiovascular Function: Hemodynamically Stable Hydration Status: Adequately Hydrated Nausea & Vomiting: No Nausea or Vomiting Pain: Pt. Denies Any Pain Peripheral Nerve Block: Patient did not receive a nerve block
[2023-08-09 09:00] VITALS: BP 116/75; PULSE 72; RESP 16; TEMP 36.3; O2SAT 96
== END 2023-08-09 09:19 | disposition home or self-care (01) ==
LOC: SUR 06:06
PROVIDERS: PCP Internal Medicine; Visit Provider Surgery
PROC: 0DJD8ZZ Inspection of Lower Intestinal Tract, Via Natural or Artificial Opening Endoscopic (ICD-10-PCS; CPT 45378; principal; 2023-08-09 07:30)
DX: Z12.11 Encounter for screening for malignant neoplasm of colon (principal); D12.8 Benign neoplasm of rectum; K57.30 Diverticulosis of large intestine without perforation or abscess without bleeding; Z86.010 Personal history of colon polyps; I10 Essential (primary) hypertension; K64.8 Other hemorrhoids; D12.4 Benign neoplasm of descending colon
CPT/HCPCS: 45380; 88305; J2704

== ENCOUNTER 2024-04-27 20:22 | Outpatient (REF) | payer MEDICARE, SELFPAY ==
--- OUTSIDE RECORDS SUMMARY | 2024-04-27 20:24 | XMS_ITS | Encounter Summary ---
[place] [address] Care Team Providers Care Accounts Payable Associate Name Role Phone Patrick Potter MD Primary Care Provider [phone] Reason for Visit * Reason Comments Follow-up Skin Check Encounter Details Date Type Department Care Team (Late st Contact Info) Description 05/28/2019 8:15 AM EST Office Visit Dermatology at [address] [phone] Melvin Rivas MD [address] [facility] [place] [address] History of malignant melanoma; History of basal cell carcinoma; AK (actinic keratosis) Social History Tobacco Use Types Packs/Day Years Used Date Smoking Tobacco: Never Smokeless Tobacco: Never Alcohol Use Standard Drinks/Week Comments Yes 0 (1 standard drink = 0.6 oz pur e alcohol) 6-8 Sex and Gender Information Value Date Recorded Sex Assigned at Not on file Gender Identity Not on file Sexual Orientation Not on file documented as of this encounter Progress Notes * Melvin Rivas MD - 05/28/2019 8:15 AM EST Problem: 1. 6-month skin checkup 2. History of malignant melanoma in situ, central upper back, November 2018 3. 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 Otis José 4. 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 He has not noted any new lesions of concern except for ahyperkeratotic papule on the vertex of his scalp. Physical examination reveals excellent healing at the central back excision site. There is no evidence of recurrent pigmentation. He has benign examination of the head and the neck the chest the backthe hands the arms forearms thighs and calves and also the buttocks. He does have a hyperkeratotic actinic keratosis on the mid vertex of the scalp and 2 small actinic's surrounding it. He has 2 actinic keratoses also on his right cheek for a total of 5 noted today. There is no evidence recurrence of BCC at the left medial nasal intraorbital fold which was excised and removed by Dr. Otis Joséin 2014. Assessment plan: History of melanoma and of nonmelanoma skin cancers 1. Patient reassured about his benign skin examination 2. Continue sun avoidance precautions 3. Recommend return to clinic another 6 months for repeat check. Every 6 month for 2 years then once yearly Actinic keratosis 5 versus a scalp and face 1. LN 2 x 2 applied to each of 5 sites today CC: Patrick Potter MD documented in this encounter Plan of Treatment Upcoming Encounters Date Type Department Care Team (Late st Contact Info) Description 12/14/2024 8:15 AM EDT Office Visit Dermatology at [place] [address] [place] [phone] Melvin Rivas MD [address] [facility] [place] [address] documented as of this encounter Visit Diagnoses Diagnosis History of malignant melanoma Personal history of malignant melanoma of skin History of basal cell carcinoma Personal history of other malignant neoplasm of skin AK (actinic keratosis) Actinic keratosis documented in this encounter Care Teams Accounts Payable Associate Relationship Specialty Start Date End Date Patrick Potter MD [address] [place] [id number] PCP - General 08/08/10 documented as of this encounter
--- OUTSIDE RECORDS SUMMARY | 2024-04-27 20:24 | XMS_ITS | Encounter Summary ---
[place] [address] Care Team Providers Care Production Control Expediter Name Role Phone Patrick Potter MD Primary Care Provider [phone] Encounter Details Date Type Department Care Team (Late st Contact Info) Description 02/13/2011 11:31 AM EDT Anesthesia Event [place] [address] Vishnu Casanova MD [facility] [place] [address] Darcie Schofield MD [facility] [place] [address] Anesthesia Record Procedure Summary Procedure Name Responsible Anesthesiologist Anesthesia Start Time Anesthesia Stop Time ARTHROSCOPY SHOULDER DEBRIDEMENT EXTENSIVE (WRVU 7.98) (Right: Shoulder) Vishnu Casanova MD 02/13/11 1131 02/13/11 1342 Events Date Time Event Comment 02/13/2011 1009 1131 Start 1342 Stop Meds * Agents No agents on file. * Blood No blood administrations on file. Lines, Drains, and Airways Type Details Placement Removal (RETIRED) Peripheral IV Line - Single Lumen 02/13/11; 0945; 02/13/11; 1530 02/13/11 0945 by Anel Rubio RN 02/13/11 1530 by Ashanti Machado RN Incision 02/13/11; 1222; shoulder; 01/08/22 (LDA cleanup utility RA#[id number]); 1715 (LDA cleanup utility RA#[id number]) 02/13/11 1222 by Gloria Virk RN 01/08/22 1715 by Lida Weiss documented in this encounter Social History Tobacco Use Types Packs/Day Years Used Date Smoking Tobacco: Never Alcohol Use Standard Drinks/Week Comments No 0 (1 standard drink = 0.6 oz pur e alcohol) Sex and Gender Information Value Date Recorded Sex Assigned at Not on file Gender Identity Not on file Sexual Orientation Not on file documented as of this encounter OR Notes * Anesthesia Postprocedure Evaluation - Vishnu Casanova MD - 02/13/2011 3:28 PM EDT Patient: Jeremiah Mcclure Procedure(s) Performed: ARTHROSCOPY SHOULDER DEBRIDEMENT EXTENSIVE - ARTHREX ANCHORS SHLDR SCOPE INSTRUMENTS; ARTHROSCOPY SHOULDER, SUBACROMIAL DECOMPRESSION; ARTHROSCOPY SHOULDER, ROTATOR CUFF REPAIR; MODIFIER BEACH CHAIR SCHLEIN; ARTHROSCOPIC TENOTOMY, BICEPS TENDON; CLAVICULECTOMY, PARTIAL Patient location: PACU Post-op pain: Adequate analgesia Post-op nausea: no nausea or vomiting Last Vitals: Filed Vitals: 02/13/11 1445 BP: 103/69 Pulse: 75 Temp: Resp: 15 Post-op cardiovascular and respiratory status: is stable Level of consciousness: oriented Complications: no apparent complications Fluid Status: normal * Anesthesia Procedure Notes - Alfred Randall MD - 02/13/2011 11:14 AM EDT Associated Order(s): ANESTHESIA BLOCK Procedure Block: Post-op Pain Control, interscalene nerve block Start time: 02/13/2011 10:56 AM End time: 02/13/2011 11:12 AM This patient was greeted in the block room and the risks and benefits of the anesthetic block were reviewed. The risks of infection, bleeding, local anesthetic toxicity, and nerve injury were discussed. Specifically, the approximate risk of nerve injury (05/2999-05/4999) including neuropathy, loss of sensation and motor function, whether permanent or temporary, was discussed as well as the fact that post-surgical nerve injury can be unrelated to the actual injection and may be related to intra-operative issues such as positioning and tourniquet usage. The anesthetic consent was obtained. The timeout was performed prior to procedure start. Standard ASA monitors were applied. Indication/Prep Position: supine and sitting Prep: chlorhexidine Laterality: right Ultrasound Guidance: live Skin Medication lidocaine 1% 1 ml Injection Injection technique:single-shot Injection Pressure Monitoring: <15 PSI Needle Length: Needle Type: stimulating Medication injection made incrementally with aspirations. Nerve infiltration solution through a needle Other, see note and Ropivicaine 0.5% 30 mL Motor Weakness A neuro exam was performed at 5 minutes after block placement. The axillary exam: Partial sensory; Partial motor The musculocutaneous exam: Partial sensory; Partial motor Additional Notes Patient tolerated well without paresthesia or pain. Stimulation lost at .38mA. 1 mg Dexamethasone in local anesthetic. Performed by Yesica * Anesthesia Preprocedure Evaluation - Vishnu Casanova MD - 02/13/2011 9:43 AM EDT Anesthesia Evaluation Patient summary reviewed No hx of anesthetic complications Airway Mallampati: I TM distance: >3 FB Neck ROM: full Dental - normal exam Comment: Chipped molars. Pulmonary - negative ROS and normal exam breath sounds clear to auscultation Cardiovascular - negative ROS and normal exam Exercise tolerance: good (+) dysrhythmias (Reports occasional paroxysmal tachycardia - possibly anxiety related.), Rhythm: regular Rate: normal ROS comment: Reports a normal stress test at [facility] ~3 months ago. Neuro/Psych (+) psychiatric history GI/Hepatic/Renal (-) GERD and liver disease Chronic renal disease: Nephrolithiasis. Endo/Other Abdominal Anesthesia Plan ASA 2 General and regional with intravenous induction Risks, procedures, intent and no warranty were discussed in detail with the patient. All his questions were answered. Precautions were reviewed. Anesthetic plan and risks discussed with patient. Use of blood products discussed with patient. Plan discussed with attending, fellow and YARN SPOOLER. documented in this encounter Miscellaneous Notes * Addendum Note - Lelo Mendez CRNA - 02/14/2011 1:40 PM EDT * Addendum Note - Julienne Newton - 02/14/2011 8:54 AM EDT Addendum created 02/14/11 0854 by Julienne Newton Modules edited:Anesthesia Events, Anesthesia Responsible Staff documented in this encounter Plan of Treatment Upcoming Encounters Date Type Department Care Team (Late st Contact Info) Description 12/14/2024 8:15 AM EDT Office Visit Dermatology at [place] [address] [facility] [place] [address] Melvin Rivas MD [address] [facility] [place] [address] documented as of this encounter Visit Diagnoses Not on filedocumented in this encounter Care Teams Production Control Expediter Relationship Specialty Start Date End Date Patrick Potter MD [address] [place] [id number] PCP - General 08/08/10 documented as of this encounter
--- OUTSIDE RECORDS SUMMARY | 2024-04-27 20:24 | XMS_ITS | Encounter Summary ---
Author Organization [facility] [place] [address] Care Team Providers Care Retort Pre Cooker Name Role Phone Patrick Potter MD Primary Care Provider [phone] Encounter Details Date Type Department Care Team (Late st Contact Info) Description 02/13/2011 11:00 AM EDT - 02/13/2011 1:45 PM EDT Surgery [place] [phone] Francisco Cho MD [facility] [place] [address] ARTHROSCOPY SHOULDER DEBRIDEMENT EXTENSIVE (WRVU 7.98) Social History Tobacco Use Types Packs/Day Years Used Date Smoking Tobacco: Never Alcohol Use Standard Drinks/Week Comments No 0 (1 standard drink = 0.6 oz pur e alcohol) Sex and Gender Information Value Date Recorded Sex Assigned at Not on file Gender Identity Not on file Sexual Orientation Not on file documented as of this encounter Last Filed Vital Signs Vital Sign Reading Time Taken Comments Blood Pressure 125/73 02/13/2011 11:24 AM EDT Pulse 70 02/13/2011 11:24 AM EDT Temperature 36.4 ??C (97.5 ??F) 02/13/2011 9:38 AM ED T Respiratory Rate 18 02/13/2011 11:00 AM EDT Oxygen Saturation 93% 02/13/2011 11:24 AM EDT Inhaled Oxygen Concentration - - Weight 85.3 kg (188 lb) 02/13/2011 9:38 AM EDT Height 167.6 cm (5' 6) 02/13/2011 9:38 AM EDT Body Mass Index 30.34 02/13/2011 9:38 AM EDT documented in this encounter Discharge Instructions * Discharge Instructions* Ashanti Machado RN - 02/13/2011 2:37 PM EDT General Anesthesia Discharge Instructions Go home and rest. You may be sleepy for several hours. Take it easy as sudden position changes may cause nausea. Be careful on stairs, as you may be unsteady on your feet. Follow a light to regular diet as tolerated today. If nausea occurs, start with clear liquids, and progress slowly to a regular diet. Do not drive, operate machinery, drink alcoholic beverages, or make important decisions for 24 hours after having general anesthesia. The medications given may change your reaction time or judgement without your awareness. IV site -- slight redness is normal, you can use warm compresses. If tenderness and redness increases or foul drainage occurs, please contact your M.D. The generalized muscle aches are due to the medication given to you just before the tube is inserted. As the medication wears off, you may develop muscle soreness, which usually goes away in 12 - 24 hours. [facility] 8:00-5:[address] [facility] 03/12 ask for your doctor contact lens curve grinder What to expect after a nerve block Nerve blocks affect many types of nerves. The affected nerves control movement, pain, and normal sensation. This causes feelings such as: ?? Weakness ?? Numbness ?? Tingling ?? Heaviness ?? A feeling that your arm or leg has fallen asleep. A nerve block can last from about 2 to 48 hours, depending on the medications used. Usually the weakness wears off first, then you will feel a numb or tingly sensation. Finally, the pain may come back. This can happen in any order. If you had a shoulder block, you may have other symptoms such as: 1. Mild shortness of breath 2. A hoarse voice 3. Blurry vision 4. Unequal pupils 5. Drooping of your face on the same side as the nerve block. These are common and expected side effects of this type of nerve block. Symptoms usually go away within 12 hours. If these symptoms do not go away, please call the Anesthesiology Department at . If you have severe or prolonged shortness of breath, please go to the nearest emergency department. If you continue to feel the effects of the nerve block for longer than 48 hours, please call the Anesthesiology department at . Pain Medication If needed, your surgeon will give you a prescription for pain medication. Start taking this medication before the nerve block wears off. Nerve blocks sometimes wear off during the night. It is a goodidea to take your pain medicine as prescribed before going to sleep so you won't wake up with pain.The idea is to have pain medicine in your body before the nerve block wears off. To help prevent nausea, eat something before taking the pain medicine. Once a nerve block starts to wear off, it is usually completely gone within 60 minutes. It is important to have pain medicine in your system before the block wears off completely. Helpful tips to protect the part of your body that is numb. After a nerve block, you cannot feel pain, pressure, or extremes in temperature. Because your arm or leg is numb, it is more at risk for injury. For example, if working near a hot oven, you could burn your arm or leg without knowing it. Here are some hints to help protect your limb while it is numb ?? While you are awake, try to change positions of your arm or leg often. This will help you avoid putting too much pressure on the limb for long periods of time. ?? While sleeping, pad the blocked limb with pillows to avoid placing too much pressure on the limb. ?? If you have a cast or a tight dressing, check the color of your fingers or toes every couple of hours. Call your doctor if any look discolored. ?? If you had a shoulder, arm, or hand nerve block, you may go home with a sling. The sling will help to keep your arm in the ideal position. Wear the sling at all times until feeling returns. If youdo not have a sling, watch the position of the blocked arm to make sure it is in a safe location. ?? Ask your family or support people to help with the above hints. QUESTIONS? Please call the Anesthesiology department at with concerns or after hours and ask for the anesthesiologist contact lens curve grinder. * Patient Instructions* Wanda Landaverde PA - 02/13/2011 12:59 PM EDT Same Day Surgery Post Operative Orders and Discharge Instructions For Rotator Cuff or Labral repair Jeremiah Mcclure [id number] 07/28/2008 Diagnosis: Status Post Right Shoulder Arthroscopy, open distal clavicle resection, biceps tenotomy,rotator cuff tear Activity: As tolerated in shoulder immobilizer. Shoulder immobilizer at all times. Please keep pillow behind elbow while sitting or lying down. Patient should schedule first Physical Therapy appointment after the first post- operative office visit Instructions: - Please keep affected extremity elevated and ice as needed on a PRN basis. - You should not drive while on narcotic medication or while using your shoulder immobilizer. - All dressings should remain in place for 72 hours. - The abduction sling should be kept in place until your next follow up appointment with the orthopaedic surgery department unless otherwise instructed by physical therapy. - Keep incision clean and dry until follow-up. Sponge bathe only until follow-up. - Dressings may be removed after 72 hours and replaced with dry sterile gauze if wounds are still draining, but steri-strips should be kept in place until follow-up. - DO NOT take any Non-steroidal anti-inflammatory medications including motrin/ibuprofen/aleve/advil to allow for optimal healing of the repair, tylenol is OK. Please contact us if you develop fevers, chills, night sweats, nausea, vomiting, wound discharge, numbness, tingling, increased pain, pain with passive or active extension of fingers in the affected extremity, or other questions or concerns. Follow up with Dr. Francisco Cho, in the Orthopaedic Department 3A, on 02/23/2011 at 11:45 AM in clinic 3A as previously scheduled. Please bring your surgical photos to your first post-op appointment. Post Surgical Pain Medication For: Jeremiah Mcclure Narcotic Pain Medications: Oxycodone 10mg Sustained Release (OxyContin): This medication works to give you a continuous level of pain medication. This medication should be taken on schedule, twice a day for three days, and then at bedtime for three days.Your shoulder and arm will probably still be numb from the ???block?? anesthesia when you get home from the hospital, but take the first dose at bedtime. This medication works for twelve hours, but doesn???t start to work for at least three hours, so you won???t feel anything for a while after you take it. Oxycodone 5mg: This medication works to give you short-term relief of pain. After the block wears off, take one or two tablets every four to six hours as you need them. This medication takes effect quickly, and reaches its maximum effect in an hour. Narcotic pain medications act in the central nervous system to relieve pain. We expect that after surgery, you will only be on these medications for a short time. The most common side effects of narcotic pain medications are nausea and constipation. If you are experiencing nausea or vomiting, please call us right away. To avoid constipation, drink plenty of fluids, eat a high fiber diet with plenty of fruits and vegetables, and take a stool softener (see below). If you do become constipated, make sure you let the nurse know as soon as possible so that it can be taken care of quickly. Please remember that these medications are for after your surgery only. Your pain medications must be kept in a secure place, preferably locked. Medications or prescriptions lost or stolen or taken ahead of time will not be replaced. Also please remember that while you are taking narcotic medications you must not drive. Acetaminophen 500mg (Extra Strength Tylenol): This medication will increase the effects of the narcotic pain medication and will help you take less of them. You may also take acetaminophen before, and right up to your day of surgery. Docusate Sodium 100mg. (Colace): This will help to keep you from becoming constipated after surgery. Take one twice a day, and call the office if you have not had a bowel movement two days after yoursurgery. documented in this encounter Medications at Time of Discharge Medication Sig Dispensed Refills Start Date End Date VANCOMYCIN/0.9% SOD CHLORIDE (VANCOMYCIN IN 0.9% SODIUM CL) 2 gram/250 mL Soln Inject 1 g into the vein once for 1 dose. 1 g 0 02/13/2011 02/13/2011 documented as of this encounter H&P Notes * Provider, Scanning - 02/05/2011 8:50 AM EDT documented in this encounter Miscellaneous Notes * Miscellaneous - Provider, Scanning - 02/13/2011 9:21 PM EDT * Op Note - Francisco Cho MD - 02/13/2011 1:57 PM EDT OPERATIVE NOTE DATE OF PROCEDURE: 02/13/2011 DATE OF DICTATION: 02/13/2011 SURGEON: FRANCISCO CHO MD DELIVERY ANALYST: HOLLY LYLES M.D. PREOPERATIVE DIAGNOSES: 1. Right rotator cuff tear. 2. Symptomatic right AC arthropathy. 3. Symptomatic long head of the biceps tendinopathy. POSTOPERATIVE DIAGNOSES: 1. Full-thickness supraspinatus rotator cuff tear. 2. Severe degenerative change and tendinopathy, long head of the biceps. 3. Diffuse degenerative change, glenoid labrum and grade 3 and 4 chondral changes, superior portion of glenoid. 4. Symptomatic AC arthropathy. PROCEDURES PERFORMED: 1. Right open distal clavicle resection (1 cm) (02718). 2. Right shoulder arthroscopy with extensive debridement (01234). 3. Right arthroscopic acromioplasty (75975). 4. Right arthroscopic rotator cuff repair utilizing Arthrex peak corkscrew anchors and fiber wire (07891). 5. Right arthroscopic biceps tenotomy (33941). OPERATIVE INDICATIONS: The patient is a 61-year-old white male whom I followed in the office for a long time with right shoulder pain. We actually made the diagnosis of right rotator cuff tear quite a while ago but he did not want to proceed with surgical intervention until this time. His clinical examination also showed severe pain at the AC joint with marked deformity. His MRI was suggestive of either a very high-grade partial-thickness versus a full-thickness rotator cuff tear involving a supraspinatus. In addition, he had severe attrition in the long head of the biceps. In light of the fact that he has not improved to his satisfaction, he was taken to the operating room at this time for the above-mentioned procedure. OPERATIVE FINDINGS/OPERATIVE PROCEDURE: The patient underwent a right shoulder supraclavicular block in the induction area. He was then transferred to the operating room where a time-out was performed as per [facility] protocol. At that point, he was placed under general endotracheal anesthesia in a modified beach chair position with his head and neck protected throughout appositioning. At that point, his right shoulder and arm were prepped and draped in the usual sterile fashion. He was given vancomycin prophylaxis. A saber incision was made over the distal clavicle. This was carried down through skin and subcutaneous tissue. Hemostasis was obtained where necessary using cautery. The deltotrapezial fascia was divided longitudinally to expose the distal 1 cm clavicle. With retractors appropriately placed, an oscillating saw was then used to remove the distal 1 cm of clavicle. The end was then smoothed with a rasp. It was copiously irrigated with bacitracin solution. The deltotrapezial fascia was approximated using mazynz-de-suhgg sutures of #2 Ethibond. The subcutaneous tissue was closed using simple interrupted sutures of 3-0 Vicryl and the skin was closed with running subcuticular suture of 3-0 Monocryl. We then re-prepped and gloved and then a 30-degree beveled arthroscope was introduced via the posterior portal. Anteroinferior portal was established in the rotator interval and a cannula placed. It was immediately evident that he has diffuse degenerative change virtually the entire superior glenoid labrum which was detached. The biceps also showed severe attrition of the long head of the biceps. A shaver was brought into position to debride the displaced portion of the glenoid labrum. I then performed a biceps tenotomy with an ArthroCare wand. At that point, the remainder of the labrum was debrided back to a stable base. Attention was then turned to the articular side of the rotator cuff which showed what initially appeared to be high-grade PASTA lesion. The footprint was prepared with a shaver down to punctate bleeding bone. The instruments were then placed in a subacromial position and bursectomy was performed with an ArthroCare wand and a shaver. It was then evident that it was a crescent-shaped supraspinatus full-thickness tear. Again, the footprint was prepared. Arthrex peak corkscrew anchors were then placed in the footprint. A 9-degree suture lasso was used to pass the sutures. They were then tied using standard arthroscopic knot-tying technique. At that point, the arthroscope was in the lateral subacromial position, and after satisfactory rotator cuff repair, an arthroscopic acromioplasty was performed with a 4.0 oval bur in a cutting block technique. The wounds were then copiously irrigated via the inflow and outflow portals, and the instruments were removed. Portals were closed using subcuticular sutures of 3-0 Monocryl and Steri-Strips. Bulky shoulder dressing was placed, ABD in the axilla, and a shoulder immobilizer. He tolerated the procedure well and was taken to the recovery room in satisfactory condition. * OR Attestation - Francisco Cho MD - 02/13/2011 1:57 PM EDT I was the attending physician supervising the resident in the above care and I was present with theresident for the entire procedure. * Miscellaneous - Provider, Scanning - 02/13/2011 12:51 PM EDT documented in this encounter Plan of Treatment Upcoming Encounters Date Type Department Care Team (Late st Contact Info) Description 12/14/2024 8:15 AM EDT Office Visit Dermatology at [place] [address] [facility] [place] [address] Melvin Rivas MD [address] [facility] [place] [address] documented as of this encounter Procedures Procedure Name Priority Date/Time Associated Diagnosis Comments CLAVICULECTOMY, PARTIAL (WRVU 7.39) 02/13/2011 11:35 AM EDT RIGHT SHLDR RTC TEAR ARTHROSCOPIC TENOTOMY, BICEPS TENDON 02/13/2011 11:35 AM EDT RIGHT SHLDR RTC TEAR MODIFIER BEACH CHAIR SCHLEIN 02/13/2011 11:35 AM EDT RIGHT SHLDR RTC TEAR ARTHROSCOPY SHOULDER, ROTATOR CUFF REPAIR (WRVU 15.59) 02/13/2011 11:35 AM EDT RIGHT SHLDR RTC TEAR ARTHROSCOPY SHOULDER, SUBACROMIAL DECOMPRESSION (WRVU 3) 02/13/2011 11:35 AM EDT RIGHT SHLDR RTC TEAR ARTHROSCOPY SHOULDER DEBRIDEMENT EXTENSIVE (WRVU 7.98) 02/13/2011 11:35 AM EDT RIGHT SHLDR RTC TEAR documented in this encounter Visit Diagnoses Not on filedocumented in this encounter Administered Medications Inactive Administered Medications - up to 3 most recent administrations Medication Order MAR Action Action Date Dose Rate Site epiNEPHrine (ADRENALIN) injection ONCE PRN, 1 dose, Starting on Sat02/13/11 at 1226, Until Sat02/13/11 at 1226, Intra-Operative (Intra-Procedure), Routine Given 02/13/2011 12:26 PM EDT 1 mg lactated ringers infusion 1,000 mL 1,000 mL, at 100 mL/hr, Intravenous, CONTINUOUS, Starting on Sat02/13/11 at 1000, Until Sat02/13/11 at 1800, Day of Surgery (Day of Procedure) New Bag 02/13/2011 9:45 AM EDT 1,000 mLs 100 mL/hr midazolam (VERSED) injection 0.5-2 mg 0.5-2 mg, Intravenous, EVERY 5 MIN PRN, Starting on Sat02/13/11 at 0938, Until Sat02/13/11 at 1800, Anxiety, for nerve block, Up to 4 mg total, Day of Surgery (Day of Procedure), Routine Given 02/13/2011 11:00 AM EDT 2 mg documented in this encounter Active and Recently Administered Medications Times are shown in EDT. Continuous Medication Order 02/11/2011 02/12/2011 02/13/2011 lactated ringers infusion 1,000 mL (CANCELED) 1,000 mL, at 100 mL/hr, Intravenous, CONTINUOUS, Starting on Sat02/13/11 at 1000, Until Sat02/13/11 at 1800, Day of Surgery (Day of Procedure) 0945 (New Bag - Prov ider: Anel Rubio RN) PRN Medication Order 02/11/2011 02/12/2011 02/13/2011 epiNEPHrine (ADRENALIN) injection (COMPLETED) ONCE PRN, 1 dose, Starting on Sat02/13/11 at 1226, Until Sat02/13/11 at 1226, Intra-Operative (Intra-Procedure), Routine 1226 (Given - Provid er: Francisco Cho MD - Comment: per 3000mL normal saline) midazolam (VERSED) injection 0.5-2 mg (CANCELED) 0.5-2 mg, Intravenous, EVERY 5 MIN PRN, Starting on Sat02/13/11 at 0938, Until Sat02/13/11 at 1800, Anxiety, for nerve block, Up to 4 mg total, Day of Surgery (Day of Procedure), Routine 1100 (Given - Provid er: Shiloh Raphael RN) documented in this encounter Care Teams Retort Pre Cooker Relationship Specialty Start Date End Date Patrick Potter MD [address] [place] [id number] PCP - General 08/08/10 documented as of this encounter
--- OUTSIDE RECORDS SUMMARY | 2024-04-27 20:24 | XMS_ITS | Encounter Summary ---
Author Organization [facility] [place] [address] Care Team Providers Care Survey Research Manager Name Role Phone Patrick Potter MD Primary Care Provider [phone] Encounter Details Date Type Department Care Team (Latest Contact Info) Description 12/10/2022 10:19 PM EDT - 12/10/2022 11:59 PM EDT Hospital [place] [phone] Discharge Disposition: Home Social History Tobacco Use Types Packs/Day Years Used Date Smoking Tobacco: Never Smokeless Tobacco: Never Alcohol Use Standard Drinks/Week Comments Yes 0 (1 standard drink = 0.6 oz pur e alcohol) 6-8 Sex and Gender Information Value Date Recorded Sex Assigned at Not on file Gender Identity Not on file Sexual Orientation Not on file documented as of this encounter Medications at Time of Discharge Medication Sig Dispensed Refills Start Date End Date rosuvastatin (Crestor) 20 mg tablet Take 20 mg by mouth daily. 07/25/2022 losartan-hydroCHLOROthia zide (Hyzaar) 50-12.5 mg tablet Take 1 tablet by mouth daily. 11/24/2022 atorvastatin (LIPITOR) 20 mg Tablet TAKE ONE TABLET BY MOUTH AT BEDTIME 4 09/03/2018 fluticasone propion-salmeteroL (ADVAIR) 250-50 mcg/dose Disk with Device INHALE 1 PUFF BY MOUTH TWO TIMES A DAY DIRECTED 08/30/2021 12/12/2023 hydroCHLOROthiazide (Hydrodiuril) 25 mg Tablet 12/04/2021 12/12/2023 omeprazole (PriLOSEC) 40 mg Capsule, Delayed Release(E.C.) Take 40 mg by mouth daily. 08/30/2021 12/12/2023 oxyCODONE (Roxicodone) 5 mg Tablet 08/11/2021 12/12/2023 naproxen sodium (ALEVE) 220 mg Capsule Take by mouth. 03/30/2020 12/12/2023 documented as of this encounter Plan of Treatment Upcoming Encounters Date Type Department Care Team (Late st Contact Info) Description 12/14/2024 8:15 AM EDT Office Visit Dermatology at [place] [address] [place] [address] Melvin Rivas MD [address], [address] [place] DERMATOLOGY [place], [place] [id number] documented as of this encounter Procedures Procedure Name Priority Date/Time Associated Diagnosis Comments SURGICAL PATHOLOGY REPORT Routine 12/10/2022 8:40 AM EDT documented in this encounter Results * (ABNORMAL) Surgical Pathology Report (12/10/2022 8:40 AM EDT) Final Diagnosis [id number] ? Location: [facility] The signing pathologist has (i) examined the relevant preparation(s) for the specimen(s) and (ii) rendered or confirmed the diagnosis(es). . ?Surgical Pathology DIAGNOSIS Left forehead, skin shave biopsy ?? ED&C: - ??Basal cell carcinoma, nodular pattern, ulcerated, transected at the base Electronically signed by: ?Carlos DORADO, PhD, [facility] Verified: ??12/18/2022 14:38 ??Dermatopathol ogist Performed at: ??[facility] [place], [place] [id number] Spinning Lathe Operator Hydraulic: Alan Catherine MD, FCAP, ??CLIA Certificate: [id number] DISCUSSION THIS RESULT REQUIRES PHYSICIAN/A.P.P . FOLLOW UP SPECIMEN(S) SUBMITTED A - L forehead, skin shave ED&C (_) CLINICAL INFORMATION Irritated seborrheic keratosis R/O BCCa/SCCa SPECIMEN PROCESSING A - Labeled/Fixativ e: Patient demographics, formalin. Quantity/Size: ??Single, 0.8 x 0.5 x 0.1 cm. Tissue Description: Shave of albert skin. Sections/Proces sing: Inked, trisected and entirely submitted in 1 cassette labeled A1. ??sdy(A) 12/18/2022 2:38 PM EDT [facility] SPECIMEN FROM SKIN / Unknown 12/10/2022 8:40 AM EDT 12/10/2022 8:40 AM EDT Melvin Rivas MD PATHOLOGY/CYTOLOGY O RDERABLES [facility] [place] [address] [facility] [place] [address] documented in this encounter Visit Diagnoses Not on filedocumented in this encounter Care Teams Survey Research Manager Relationship Specialty Start Date End Date Patrick Potter MD [address] [place] [id number] PCP - General 08/08/10 documented as of this encounter
--- OUTSIDE RECORDS SUMMARY | 2024-04-27 20:24 | XMS_ITS | Encounter Summary ---
Author Organization [facility] [place] [address] Care Team Providers Care Technical Sme Name Role Phone Patrick Potter MD Primary Care Provider [phone] Encounter Details Date Type Department Care Team (Late st Contact Info) Description 12/12/2023 Refill Dermatology at [address] [address] Vee Herrera LPN Social History Tobacco Use Types Packs/Day Years Used Date Smoking Tobacco: Never Smokeless Tobacco: Never Alcohol Use Standard Drinks/Week Comments Yes 0 (1 standard drink = 0.6 oz pur e alcohol) 6-8 Sex and Gender Information Value Date Recorded Sex Assigned at Not on file Gender Identity Not on file Sexual Orientation Not on file documented as of this encounter Plan of Treatment Upcoming Encounters Date Type Department Care Team (Late st Contact Info) Description 12/14/2024 8:15 AM EDT Office Visit Dermatology at [address] [phone] Melvin Rivas MD [address] [facility] [place] [address] documented as of this encounter Visit Diagnoses Not on filedocumented in this encounter Care Teams Technical Sme Relationship Specialty Start Date End Date Patrick Potter MD [address] [place] [id number] PCP - General 08/08/10 documented as of this encounter
--- OUTSIDE RECORDS SUMMARY | 2024-04-27 20:24 | XMS_ITS | Encounter Summary ---
Author Organization [facility] Address [facility] [place] [address] Care Team Providers Care Template Cutter Name Role Phone Patrick Potter MD Primary Care Provider [phone] Reason for Visit * Reason Comments Follow Up Surgery DOS 10.4.11 R shldr w/ scope, 4-5 wk f/u Encounter Details Date Type Department Care Team (Late st Contact Info) Description 03/23/2011 2:20 PM EST Follow-[place] [address] Wanda Landaverde PA [facility] DR ORTHOPAEDIC SURGERY [place] [id number] S/P complete repair of rotator cuff - right (Primary Dx) Discharge Disposition: Home Social History Tobacco Use Types Packs/Day Years Used Date Smoking Tobacco: Never Alcohol Use Standard Drinks/Week Comments No 0 (1 standard drink = 0.6 oz pur e alcohol) Sex and Gender Information Value Date Recorded Sex Assigned at Not on file Gender Identity Not on file Sexual Orientation Not on file documented as of this encounter Progress Notes * Wanda Landaverde PA - 03/26/2011 4:22 PM EST PATIENT NAME: Jeremiah Mcclure AGE: 61 y.o. MR#: [id number] DATE OF VISIT: 03/23/2011 DATE OF SURGERY: February 13, 2011 SURGERY DESCRIPTION: 1. Right open distal clavicle resection (1 cm) (08026). 2. Right shoulder arthroscopy with extensive debridement (61391). 3. Right arthroscopic acromioplasty (07619). 4. Right arthroscopic rotator cuff repair utilizing Arthrex peak corkscrew anchors and fiber wire (10752). 5. Right arthroscopic biceps tenotomy (25280). SURGEON: Dr. Bony Cho STAFF: Dr. Bony Cho CHIEF COMPLAINT: 4 weeks S/P above procedure HISTORY OF PRESENT ILLNESS: Mr. Ren zepeda 61 y.o. year old male comes into clinic today for appointment 4 weeks s/p the above procedures. The patient doing relatively well status post above procedure.He is no longer taking his narcotic pain medication. He is participating in his physical therapy. Mr. Mcclure denies any fever/chills or other constitutional signs of infection. He denies any numbnessor tingling distal to the surgical procedure. The patient has not noticed any abnormal drainage from his incision or increased redness or discomfort. PHYSICAL EXAMINATION: Mr. Ren zepeda 61 y.o. male is alert and oriented.He appears in no acute discomfort and is resting comfortably in a chair in the exam room. Inspection: On inspection surgical incisions are healed without complication. There is no erythema,edema, tenderness or drainage. There is no evidence of infection. Neuro: Neurologic examination of the upper extremity is intact with normal motor function of the radial, median, ulnar, axillary and musculocutaneous nerves. Sensory function is intact in the radial,median, ulnar, axillary, and lateral antebrachial cutaneous nerve distributions. The hand was well perfused. Radial pulses are 2+ and equal bilateral. ROM: Patient has full range of motion of his elbow. Patient's passive range of motion was approximately 120?? of forward elevation. Patient stated that he was able to reach more range of motion with his physical therapist. ASSESSMENT: Patient is doing well status post above procedure PLAN: I spent approximately 15 minutes of this 20 minute visit discussing Mr. Mcclure physical therapy and physical exam findings. Discussed with the patient that he should be continuing with his physical therapy. The patient seems to be doing well at this time. I discussed with the patient that he should limit his active overhead motion. I would expect that the patient will continue to work on his passive as well as active range of motion. We will plan to see the patient back in approximately 6weeks for further evaluation of the shoulder. At that time we will test his range of motion as wellas gentle strength. The patient understands to contact us if he has any other questions or concerns. documented in this encounter Plan of Treatment Upcoming Encounters Date Type Department Care Team (Late st Contact Info) Description 12/14/2024 8:15 AM EDT Office Visit Dermatology at [place] [address] [facility] [place] [address] Melvin Rivas MD [address] [place] [address] documented as of this encounter Visit Diagnoses Diagnosis S/P complete repair of rotator cuff - right- Primary Other postprocedural status documented in this encounter Care Teams Template Cutter Relationship Specialty Start Date End Date Patrick Potter MD [address] [place] [address] PCP - General 08/08/10 documented as of this encounter
--- OUTSIDE RECORDS SUMMARY | 2024-04-27 20:24 | XMS_ITS | Encounter Summary ---
Author Organization [facility] Address [address] [place] [address] Care Team Providers Care Plywood And Veneer Repairer Name Role Phone Brendan Potter MD Primary Care Provider [phone] Encounter Details Date Type Department Care Team (Late st Contact Info) Description 03/14/2015 Results Only [facility] [phone] Luiz Mckeon, DO [address] [facility] [address] [place], [place] [phone] Social History Tobacco Use Types Packs/Day Years Used Date Smoking Tobacco: Never Assessed Sex and Gender Information Value Date Recorded Sex Assigned at Not on file Legal Sex Male 18:29 EST Gender Identity Not on file Sexual Orientation Not on file documented as of this encounter Plan of Treatment Not on file documented as of this encounter Procedures Procedure Name Priority Date/Time Associated Diagnosis Comments SURGICAL PATHOLOGY Routine 03/14/2015 18 :38 EST documented in this encounter Results * SURGICAL PATHOLOGY (03/14/2015 18:38 EST) Pathology Report: SURGICAL PATHOLOGY REPORT Reports generated via electronic interface contain original data; however they are lacking the format of the original report. Caution should be taken when reading/interpret ing unformatted reports. Name: ? JEREMIAH EMMANUEL ? Accession #: ? [id number] ? : ? 1950 (Age: 65) ??M ? Collect Date: ? 03/14/2015 ? Location: ? [facility] ? Receive Date: ? 03/14/2015 ? Provider: LUIZ MCKEON DO Copy to: BRENDAN POTTER MD ? Final Pathologic Diagnosis: A. COLON, TRANSVERSE POLYP, BIOPSY: - ??Tubular adenoma. B. COLON, ASCENDING POLYP, BIOPSY: - ??Tubular adenoma. C. COLON, SIGMOID POLYP, BIOPSIES: - ??Fragments of tubular adenoma. Document reviewed and electronically signed by: RICK OCAMPO MD Report ??Date: 03/16/2015 12:07 By the signature above, the attending physician certifies that he/she has personally conducted a gross and/or microscopic examination of the described specimens and rendered or confirmed the above diagnosis. Specimen(s) Received: A. ??Transverse colon polyp B. ??Ascending colon polyp C. ??Sigmoid polyp Clinical History: Colorectal cancer screen Gross Description: A. ?Received in formalin labelled with proper patient identification (initials A, T) and transverse colon polyp is a single pink-albert tissue fragment (0.4 x 0.3 x 0.3 cm). Submitted intact in block A1. B. ?Received in formalin labelled with proper patient identification (initials A, T) and ascending colon polyp is a single pink-albert tissue fragment (0.9 x 0.2 x 0.2 cm). Submitted intact in block B1. C. ?Received in formalin labelled with proper patient identification (initials A, T) and sigmoid polyp are two pink-albert tissues (0.3 x 0.2 x 0.1 cm and 0.2 x 0.2 x 0.2 cm). Entirely submitted in block C1. Claudette Hoffmann 03/15/2015 9:03 AM End of Report [facility] 03/14/2015 18:3 8 EST 03/14/2015 18:38 EST us Luiz Mckeon DO PATHOLOGY ORDERABLES Fi nal Result [facility] [address] [place] [address] documented in this encounter Visit Diagnoses Not on filedocumented in this encounter Care Teams Plywood And Veneer Repairer Relationship Specialty Start Date End Date Brendan Potter MD [address] [place] [address] PCP - General 02/06/13 documented as of this encounter
--- OUTSIDE RECORDS SUMMARY | 2024-04-27 20:24 | XMS_ITS | Encounter Summary ---
[place] [address] Care Team Providers Care Logging Shovel Operator Name Role Phone Patrick Potter MD Primary Care Provider [phone] Reason for Visit * Reason Comments Annual Exam Encounter Details Date Type Department Care Team (Late st Contact Info) Description 12/07/2021 8:30 AM EDT Office Visit Dermatology at [address] [phone] Melvin Rivas MD [address] [facility], [facility] [place] [address] History of malignant melanoma; History of basal cell carcinoma; Seborrheic keratosis; AK (actinic keratosis) Social History Tobacco Use [...] Progress Notes * Melvin Rivas MD - 12/07/2021 8:30 AM EDT Problem: 1. 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 Its been 3 years since he was diagnosed with his melanoma in situ.. He has been doing well. He is enjoying gardening this summer. He tries to wear hat but does not remember to use his sunscreen. Physical examination reveals a pleasant 71-year-old gentleman who has a benign examination of the head and the neck the chest the back the hands on forearms thighs and calves. There is a well-healed scar on the upper central back at the site of his melanoma excision. There is no evidence of recurrent pigmentation. He has no cervical or axillary adenopathy. Assessment plan: History of malignant melanoma in situ, central back, November 2018 1. Patient reassured about today's benign skin examination 2. Continue sun avoidance precautions. Stressed the importance of sunscreen use 3. Return to clinic in a year for repeat check. Actinic keratosis versus scalp 1. Again this visit LN 2 x 2 was applied each of 6 sites 2. We will continue to keep an eye on this area CC: Patrick Potter MD documented in this encounter Plan of Treatment Upcoming Encounters Date Type Department Care Team (Late st Contact Info) Description 12/14/2024 8:15 AM EDT Office Visit Dermatology at [address] [phone] Melvin Rivas MD [address] [facility], [facility] [place] [address] documented as of this encounter Visit Diagnoses Diagnosis History of malignant melanoma Personal history of malignant melanoma of skin History of basal cell carcinoma Personal history of other malignant neoplasm of skin Seborrheic keratosis Other seborrheic keratosis AK (actinic keratosis) Actinic keratosis documented in this encounter Care Teams Logging Shovel Operator Relationship Specialty Start Date End Date Patrick Potter MD [address] [place] [address] PCP - General 08/08/10 documented as of this encounter
--- OUTSIDE RECORDS SUMMARY | 2024-04-27 20:24 | XMS_ITS | Encounter Summary ---
[place] [address] Care Team Providers Care Cement Truck Driver Name Role Phone Patrick Potter MD Primary Care Provider [phone] Reason for Visit * Reason Comments Follow-up Encounter Details Date Type Department Care Team (Late st Contact Info) Description 11/03/2018 9:00 AM EDT Procedure visit Dermatology at [address] [phone] Melvin Rivas MD [address] [facility] [place] [address] History of malignant melanoma Social History Tobacco Use Types Packs/Day Years [...] Progress Notes * Melvin Rivas MD - 11/03/2018 9:00 AM EDT Clinical impression: Malignant melanoma in situ, central back Size: 2 cm Deep suture: 3-0 Vicryl Surface suture: 4-0 Ethilon Follow-up: In 10 to 14 days for suture removal biopsy results Indications for surgery, possible adverse outcomes, and activity restrictions discussed. Informed verbal consent was obtained. Skin surface was prepared with 4% chlorhexidine and draped in the usual sterile manner. Local anesthesia with 1% lidocaine, 1 100,000 epinephrine and 0.1 mEq/mL bicarbonate. Using a 15 blade, and 5 mm margins, an elliptical incision carried out around the scar of the initial shave biopsy site. Undermining performed peripherally. Hemostasis with electrodesiccation. Layered closure performed, with specimen to pathology. Wound dressed, wound care reviewed. End length suture line was 2.5 cm Follow-up in 10 to 14 days for suture removal biopsy results. CC: Patrick Potter MD documented in this encounter Plan of Treatment Upcoming Encounters Date Type Department Care Team (Late st Contact Info) Description 12/14/2024 8:15 AM EDT Office Visit Dermatology at [place] [address] [place] [address] Melvin Rivas MD [address] [facility] [place] [address] documented as of this encounter Procedures Procedure Name Priority Date/Time Associated Diagnosis Comments SURGICAL PATHOLOGY REPORT Routine 11/03/2018 12:00 PM EDT documented in this encounter Results * Surgical Pathology Report (11/03/2018 12:00 PM EDT) Final Diagnosis [id number] ? Location: [facility] The signing pathologist has (i) examined the relevant preparation(s) for the specimen(s) and (ii) rendered or confirmed the diagnosis(es). . ?Surgical Pathology DIAGNOSIS Skin, central back, ??excision: - ??No residual of the previously diagnosed ?? melanoma in situ - Reparative changes consistent with previous operative site - Lentigines and actinic keratosis Electronically signed by: ??Seun Dodson MD Verified: ??11/06/2018 ?Dermatopathol ogist Performed at: ??-[facility] Dept. of Pathology, [place], [place] ADDITIONAL STUDIES The report of the patient's prior biopsy ([id number] ) has been reviewed. CLINICAL INFORMATION Specimen Submitted: A - Skin, central back, excision (1) Clinical History and Diagnosis: MM for excision SPECIMEN PROCESSING A - Labeled/Fixativ e: Central back, formalin. Quantity/Size: ??Single, 2.2 x 1.8 cm excised to a depth of 0.8 cm. Tissue Description: Tobar wrinkled skin with a 1 x 1 cm pink hartmann ill-defined scar 0.3 cm from the nearest radial margin Sections/Proces sing: Inked and entirely submitted in 3 cassettes as follows: ?A1: ??tips ?A2-A3: ??body ??jmb 11/06/2018 5:38 PM EDT [facility] SPECIMEN FROM SKIN / Unknown 11/03/2018 12:00 PM EDT 11/03/2018 12:00 PM EDT Melvin Rivas MD PATHOLOGY/CYTOLOGY O TRE [facility] [place] [address] documented in this encounter Visit Diagnoses Diagnosis History of malignant melanoma Personal history of malignant melanoma of skin documented in this encounter Care Teams Cement Truck Driver Relationship Specialty Start Date End Date Patrick Potter MD [address] [place] [address] PCP - General 08/08/10 documented as of this encounter
--- OUTSIDE RECORDS SUMMARY | 2024-04-27 20:24 | XMS_ITS | Encounter Summary ---
Author Organization [facility] Address [address] [place] [address] Care Team Providers Care Equipment Service Associate Name Role Phone Patrick Potter MD Primary Care Provider [phone] Encounter Details Date Type Department Care Team (Latest Contact Info) Description 03/14/2015 14:05 EST - 03/14/2015 23:59 EST Hospital Encounter [address] [address] Unknown, Provider, MD Discharge Disposition: Home or Self Care Social History Tobacco Use Types Packs/Day Years Used Date Smoking Tobacco: Never Assessed Sex and Gender Information Value Date Recorded Sex Assigned at Not on file Legal Sex Male 18:29 EST Gender Identity Not on file Sexual Orientation Not on file documented as of this encounter Discharge Disposition Disposition Code Departure Means Destination Home or Self [facility] documented in this encounter Plan of Treatment Not on file documented as of this encounter Visit Diagnoses Not on filedocumented in this encounter Care Teams Equipment Service Associate Relationship Specialty Start Date End Date Patrick Potter MD [address] [place] [address] PCP - General 02/06/13 documented as of this encounter
--- OUTSIDE RECORDS SUMMARY | 2024-04-27 20:24 | XMS_ITS | Encounter Summary ---
[place] [address] Care Team Providers Care Assistant Community Director Name Role Phone Patrick Potter MD Primary Care Provider [phone] Encounter Details Date Type Department Care Team (Latest Contact Info) Description 09/18/2018 8:58 PM EDT - 09/18/2018 11:59 PM EDT Hospital [place] [phone] Discharge Disposition: Home Social History Tobacco Use [...] Sig Dispensed Refills Start Date End Date atorvastatin (LIPITOR) 20 mg Tablet TAKE ONE TABLET BY MOUTH AT BEDTIME 4 09/03/2018 losartan-hydrochlorothia zide (HYZAAR) 100-25 mg Tablet TAKE ONE TABLET BY MOUTH EVERY DAY 3 09/03/2018 12/10/2022 documented as of this encounter Plan of Treatment Upcoming Encounters Date Type Department Care Team (Late st Contact Info) Description 12/14/2024 8:15 AM EDT Office Visit Dermatology at [place] [address] [facility] [place] [phone] Melvin Rivas MD [address] [facility], [place] [address] documented as of this encounter Procedures Procedure Name Priority Date/Time Associated Diagnosis Comments SURGICAL PATHOLOGY REPORT Routine 09/18/2018 12:00 PM EDT documented in this encounter Results * Surgical Pathology Report (09/18/2018 12:00 PM EDT) Final Diagnosis [id number] ? Location: [facility] The signing pathologist has (i) examined the relevant preparation(s) for the specimen(s) and (ii) rendered or confirmed the diagnosis(es). . ?Surgical Pathology DIAGNOSIS Skin, right central back, shave biopsy: - ??Melanoma in situ, extending close to the peripheral specimen edge, arising in association with nevus (see Discussion) Electronically signed by: ??Carlos DORADO, PhD, Lilia Verified: ??09/24/2018 ?Dermatopathologist Performed at: ??-[facility] Dept. of Pathology, [place], [place] DISCUSSION The junctional component shows lentiginous near confluent growth pattern with upwards pagetoid melanocytes, ?? consistent with melanoma in situ. The dermal component is bland. Ki67 index is not increased and HMB45 immunostain is negative in dermal melanocytes. The expression of p16 is preserved. The histological and immunological findings support the diagnosis of melanoma in situ arising in association with a compound dysplastic nevus. This case was also reviewed by additional intradepartmental dermatopathologists for consensus diagnosis. ADDITIONAL STUDIES Immunohistochemistry Studies: Formalin-fixed, paraffin-embedded tissue sections of A2 are studied for Ki67/ MelanA, p16 and HMB45 using the polymer technique with appropriate positive and negative controls. ?These IHC studies provide the pathologist with adjunctive diagnostic information. Antibody specificity has been verified by testing antibodies on a series of in-house tissues with known immunohistochemical performance characteristics. The clinical interpretation of any antibody positive staining or its absence is evaluated within the context of clinical presentation, morphology, histopathological criteria and other diagnostic tests. CLINICAL INFORMATION Specimen Submitted: A - Skin, upper central back, shave Clinical History and Diagnosis: 1 cm atypical pigmented patch; atypical nevus, rule out MM Referring Identifier: ?(not provided) SPECIMEN PROCESSING A - Labeled/Fixative: Patient demographics, formalin. Quantity/Size: ??Single, 1.1 x 0.9 x 0.1 cm. Tissue Description: Shave of albert-pink skin with a central, 0.8 x 0.7 cm albert-brown to darker brown macule. Sections/Processing: Inked, serially sectioned and entirely submitted in 2 cassettes as follows: ? A1: ??Tips. ? A2: ??Body, sectioned through the macule. ??apb 09/24/2018 11:02 AM EDT [facility] SPECIMEN FROM SKIN / Unknown 09/18/2018 12:00 PM EDT 09/18/2018 12:00 PM EDT Melvin Rivas MD PATHOLOGY/CYTOLOGY O TRE Performing Organization Address City/State/[facility] Co de Phone Number [facility] [place] [phone] documented in this encounter Visit Diagnoses Not on filedocumented in this encounter Care Teams Assistant Community Director Relationship Specialty Start Date End Date Patrick Potter MD [address] [place] [id number] PCP - General 08/08/10 documented as of this encounter
--- OUTSIDE RECORDS SUMMARY | 2024-04-27 20:24 | XMS_ITS | Encounter Summary ---
Author Organization [facility] Address [facility] [place] [address] Care Team Providers Care Radiological Technologist Name Role Phone Patrick Potter MD Primary Care Provider [phone] Reason for Visit * Reason Comments Post Op DOS 10.4.11 R shldr scope Encounter Details Date Type Department Care Team (Late st Contact Info) Description 02/23/2011 11:45 AM EDT Office [place] [address] Bony Cho MD [facility] DR ORTHOPAED[place] [address] H/O: RCT (rotator cuff tear) (Primary Dx) Discharge Disposition: Home Social History [...] as of this encounter Progress Notes * Bony Cho MD - 02/23/2011 2:11 PM EDT ORTHOPEDIC NOTE Mr. Mcclure returns now 10 days status post a right arthroscopic rotator cuff repair with an open distal clavicle resection of biceps tenotomy. He has been comfortable. He has had minimal pain; no fevers or chills. Examination today, neuro/musculoskeletal exam, his right shoulder, his wounds have healed kindly. No evidence of infection. Distal neurovascular exam is intact. I reviewed his intraoperative findings and procedure with him. I have given him a referral for therapy closer to home. Recheck in four weeks or sooner p.r.n. documented in this encounter Plan of Treatment Upcoming Encounters Date Type Department Care Team (Late st Contact Info) Description 12/14/2024 8:15 AM EDT Office Visit Dermatology at [place] [address] [facility] [place] [address] Melvin Rivas MD [address] [facility] [place] [address] documented as of this encounter Visit Diagnoses Diagnosis H/O: RCT (rotator cuff tear)- Primary Personal history of other musculoskeletal disorders documented in this encounter Care Teams Radiological Technologist Relationship Specialty Start Date End Date Patrick Potter MD [address] [place] [address] PCP - General 08/08/10 documented as of this encounter
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
--- OUTSIDE RECORDS SUMMARY | 2024-04-27 20:24 | XMS_ITS | Encounter Summary ---
Author Organization [place] [address] Care Team Providers Care Director Of Retail Name Role Phone Patrick Potter MD Primary Care Provider [phone] Encounter Details Date Type Department Care Team (Late st Contact Info) Description 02/13/2011 Orders Only [place] [address] Wanda Landaverde PA [facility] [address] [place] [address] Social History Tobacco Use Types Packs/Day Years [...] 8:15 AM EDT Office Visit Dermatology at [place] [address] [facility] [place] [phone] Melvin Rivas MD 580 [facility] [place] [address] documented as of this encounter Visit Diagnoses Not on filedocumented in this encounter Care Teams Director Of Retail Relationship Specialty Start Date End Date Patrick Potter MD [address] [place] [address] PCP - General 08/08/10 documented as of this encounter
--- OUTSIDE RECORDS SUMMARY | 2024-04-27 20:24 | XMS_ITS | Encounter Summary ---
Author Organization [facility] [place] [address] Care Team Providers Care High School Mathematics Teacher Name Role Phone Patrick Potter MD Primary Care Provider [phone] Reason for Visit * Consultation (Routine) - Closed Specialty Diagnoses / Procedures Referred By Bhumika t Referred To Contact Vascular Surgery Diagnoses Myalgia, unspecified site Activated protein C resistance Patrick Potter MD [address] [place] [address] [facility] [address] [place] [address] Referral ID Status Reason Start Date Expiration Date V isits Requested Visits Authorized [id number] Closed Consult, [facility] PCP Updated and/or Approved 03/08/2021 09/06/2021 6 6 Encounter Details Date Type Department Care Team (Late st Contact Info) Description 04/11/2021 3:00 PM EST Office Visit [place] [address] Loretta Archer APRN [facility] [place] [address] Abnormal ankle brachial index (NY) Social History Tobacco Use Types Packs/Day Years [...] Sign Reading Time Taken Comments Blood Pressure 147/81 04/11/2021 2:39 PM EST Pulse 92 04/11/2021 2:39 PM EST Temperature - - Respiratory Rate - - Oxygen Saturation - - Inhaled Oxygen Concentration - - Weight 87.1 kg (192 lb) 04/11/2021 2:39 PM EST r eported Height 167.6 cm (5' 6) 04/11/2021 2:39 PM EST r eported Body Mass Index 30.99 04/11/2021 2:39 PM EST documented in this encounter Progress Notes * Moncho Archerjewels Brown, SUPERVISOR PRINTING AND STAMPING - 04/11/2021 3:00 PM EST This is a new patient to the practice who is being evaluated for abnormal ABIs and delayed cap refill in toes on left and was referred by Patrick Potter MD. 71 yo male with HTN, HLD with abnormal NY's on left at clinic appointment locally and delayed cap refill on toes of left foot. Denies claudication, rest pain,tissue loss, chest pain, SOB, TIa's, edema. He walks 2 miles per day and uphill. He is non smoker. He takes daily staitn Patient Active Problem List Diagnosis Code ??? Kidney stones and stent N20.0 ??? S/P inguinal herniorrhaphy Z98.890, Z87.19 ??? S/P complete repair of rotator cuff - right Z98.890 ??? 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 PRO PARTIAL REMOVAL, CLAVICLE 02/13/2011 CLAVICULECTOMY, PARTIAL performed by FRANCISCO HAMMOND at [facility] ??? PRO SHLDR ARTHROSCOP, EXTEN DEBRIDE 02/13/2011 ARTHROSCOPY SHOULDER DEBRIDEMENT EXTENSIVE performed by FRANCISCO HAMMOND at [facility] ??? PRO SHLDR ARTHROSCOP, PART ACROMIOPLAS 02/13/2011 ARTHROSCOPY SHOULDER, SUBACROMIAL DECOMPRESSION performed by FRANCISCO HAMMOND at [facility] ??? PRO SHLDR ARTHROSCOP, SURG, W ROTAT CUFF REPR 02/13/2011 ARTHROSCOPY SHOULDER, ROTATOR CUFF REPAIR performed by FRANCISCO HAMMOND at [facility] ??? PRO UNLISTED PROCEDURE ARTHROSCOPY 02/13/2011 ARTHROSCOPIC TENOTOMY, BICEPS TENDON performed by FRANCISCO HAMMOND at [facility] Family Hx: No family history on file. Social Hx: Social History Tobacco Use ??? Smoking status: Never Smoker ??? Smokeless tobacco: Never Used Substance Use Topics ??? Alcohol use: Yes Comment: 6-8 Medications: Medications 04/11/21 1453 Medication Sig Taking? naproxen sodium (ALEVE) 220 mg Capsule Take by mouth. Yes atorvastatin (LIPITOR) 20 mg Tablet TAKE ONE TABLET BY MOUTH AT BEDTIME Yes losartan-hydrochlorothiazide (HYZAAR) 100-25 mg Tablet TAKE ONE TABLET BY MOUTH EVERY DAY Yes Allergies: Allergies Allergen Reactions ??? Keflex [Cephalexin] Review of Systems: Constitutional (weight change, fever) - Denies Neuro (dizziness, seizures, numbness, tingling) - Denies Eyes (vision) - Denies Ears, nose, throat (hearing) - Denies Cardiovascular (CP) - Denies Respiratory (SOB) - Denies GI (abd pain, nausea, emesis, blood in stool) - Denies (hematuria, dysuria, frequency) - Denies Muscoloskeletal (extremity pain, weakness) - denies Skin (ulcers, rashes) - denies All other ROS negative Physical Exam: Vitals: Vitals: 04/11/21 1439 BP: 147/81 BP Location (NBP): Right arm Patient Position: Sitting BP Cuff Sizes: Adult (25-34 cm) Pulse: 92 Weight: 87.1 kg (192 lb) Height: 167.6 cm (5' 6) General: NAD, appears well Neuro: Alert and oriented, motor sensory grossly intact Lungs: CTA Heart: RRR Abd: Soft, NT, ND, no palpable pulsatile masses Extremity - Alleman, warm, no ulceration, brisk capillary refill, no edema Vascular: R L Carotid 2/2 bruit (n) 2/2 bruit (n) Radial 2/2 2/2 Femoral 2/2 2/2 Popliteal 2/2 2/2 DP 2/2 2/2 PT 2/2 2/2 NY's Right ?Pressure (mm Hg) ?? NY ??Waveform ?? Brachial Artery ?132 ? Common Femoral Artery ?Triphasic ?? Popliteal Artery ? Triphasic ?? Dorsalis Pedis (Ankle) Artery ?164 ? 1.24 ??Triphasic ?? Posterior Tibial (Ankle) Artery ??160 ? 1.21 ??Triphasic ? Left ? Pressure (mm Hg) ?? NY ??Waveform ?? Brachial Artery ?132 ? Common Femoral Artery ?Triphasic ?? Popliteal Artery ? Triphasic ?? Dorsalis Pedis (Ankle) Artery ?161 ? 1.22 ??Triphasic ?? Posterior Tibial (Ankle) Artery ??167 ? 1.27 ??Triphasic ? Interpretation: ?? RIGHT: No evidence of lower extremity arterial occlusive disease. ?? LEFT: No evidence of lower extremity arterial occlusive disease. ? Assessment/Plan; 71 yo male with HTN, HLD with abnormal NY's on left at clinic appointment locallyand delayed cap refill on toes of left foot. Denies claudication, rest pain,tissue loss. NY's normal Good palpable pedal pulses. No CLI. Continue statinand walking. RTC PRN documented in this encounter Plan of Treatment Upcoming Encounters Date Type Department Care Team (Late st Contact Info) Description 12/14/2024 8:15 AM EDT Office Visit Dermatology at [place] [address] [facility] [place] [phone] Melvin Rivas MD [address] [facility] [address], [place] [address] documented as of this encounter Visit Diagnoses Diagnosis Abnormal ankle brachial index (NY) documented in this encounter Care Teams High School Mathematics Teacher Relationship Specialty Start Date End Date Patrick Potter MD [address] [place] [address] PCP - General 08/08/10 documented as of this encounter
--- OUTSIDE RECORDS SUMMARY | 2024-04-27 20:24 | XMS_ITS | Encounter Summary ---
[place] [address] Care Team Providers Care Battery Technician Name Role Phone Patrick Potter MD Primary Care Provider [phone] Reason for Visit * Reason Comments Skin Check Encounter Details Date Type Department Care Team (Late st Contact Info) Description 11/26/2019 8:30 AM EDT Office Visit Dermatology at [address] [phone] Melvin Rivas MD 580 [facility], [place] [address] History of malignant melanoma; History of basal [...] Progress Notes * Melvin Rivas MD - 11/26/2019 8:30 AM EDT Problem: 1. 6-month skin checkup 2.??History of malignant melanoma in situ, central upper back, November 2018 3.??History BCCA left medial nasal infraorbital fold removed about [address] Otis José 4. 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 He is for 6-year for 6-month check. He noted a new rash on the right sub-pannus skin fold coincident with the hot weather we have been having. He has not noticed any new skin lesions/concerns. Physical examination reveals a pleasant 69-year-old gentleman who has a well- healed surgical excision site in the upper central back where his melanoma was removed. He otherwise has a benign examination of the scalp the face the neck the chest the back the hands the arms of forearms thighs and the calves and also the buttocks. He has a JUNIOR negative scaling patch in the right sub-pannus skin fold area with trailing edge scaling. Is consistent with resolving intertrigo. He has does have 2 actinickeratoses on the vertex of his scalp. There is no evidence of recurrence of at the left medial nasal infraorbital fold removed by Dr. Otis José 2014. Assessment plan: History of melanoma and of nonmelanoma skin cancers 1. Patient reassured about his benign skin examination 2. Continue sun avoidance precautions 3. Return to clinic in 6 months recheck. Will plan every 6 month follow-ups for 2 years and then once yearly thereafter. Actinic keratosis vertex of scalp 1. LN2 x2 applied to each of 3 sites Intertrigo right sub-pannus skin fold 1. Discussed hydrocortisone cream for this and, when working and sweating, using baby powder to tryto keep this area dry. Cc: Patrick Potter MD documented in this encounter Plan of Treatment Upcoming Encounters Date Type Department Care Team (Late st Contact Info) Description 12/14/2024 8:15 AM EDT Office Visit Dermatology at [place] [address] [facility] [place] [phone] Melvin Rivas MD [address] [facility], [place] [address] documented as of this encounter Visit Diagnoses Diagnosis History of malignant melanoma Personal history of malignant melanoma of skin History of basal cell carcinoma Personal history of other malignant neoplasm of skin AK (actinic keratosis) Actinic keratosis documented in this encounter Care Teams Battery Technician Relationship Specialty Start Date End Date Patrick Potter MD [address] [place] [address] PCP - General 08/08/10 documented as of this encounter
--- OUTSIDE RECORDS SUMMARY | 2024-04-27 20:24 | XMS_ITS | Encounter Summary ---
Author Organization [facility] Address [address] [place] [address] Care Team Providers Care English Teacher Name Role Phone Patrick Potter MD Primary Care Provider [phone] Encounter Details Date Type Department Care Team (Latest Contact Info) Description 02/06/2017 17:28 EDT - 02/06/2017 23:59 EDT Hospital Encounter [address] [address] Unknown, Provider, Discharge Disposition: Home or Self Care Social [...] on filedocumented in this encounter Care Teams English Teacher Relationship Specialty Start Date End Date Patrick Potter MD [address] [place] [address] PCP - General 02/06/13 documented as of this encounter
--- OUTSIDE RECORDS SUMMARY | 2024-04-27 20:24 | XMS_ITS | Encounter Summary ---
[place] [address] Care Team Providers Care Cattle Brander Name Role Phone Patrick Potter MD Primary Care Provider [phone] Encounter Details Date Type Department Care Team (Late st Contact Info) Description 06/03/2020 8:15 AM EST Office Visit Dermatology at [address] [phone] Melvin Rivas MD 580 [facility] [place] [address] History of malignant melanoma; History of basal cell carcinoma; Nevus; Seborrheic keratosis Social History Tobacco Use Types Packs/Day Years [...] Progress Notes * Melvin Rivas MD - 06/03/2020 8:15 AM EST Problem: 1. 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 He is here for 6-month skin checkup. He is status post recent left shoulder replacement surgery and is going to physical therapy. He asked me about some bumps on his upper chest and shoulders Physical examination reveals a pleasant 70-year-old gentleman who has a well- healed surgical site on the upper central back where his melanoma was removed without evidence of recurrent pigmentation. Examination of the head and neck the chest the back the hands the arms from the thighs and the calves is benign. There are no actinic keratoses today. There is no evidence of recurrence of BCCA at theleft medial infraorbital fold which was removed by Dr. Otis José. He has some seborrheic keratoses on the upper chest and shoulders Assessment plan: History of melanoma and of nonmelanoma skin cancers 1. Patient reassured about his benign skin examination 2. Continue sun avoidance precautions 3. Return to clinic in 6 months for repeat check. If doing well at that time, we will likely be able then to space out to once yearly visits Nevi and seborrheic keratoses 1. Patient reports benign nevi and seborrheic keratoses CC: Patrick Potter MD documented in this encounter Plan of Treatment Upcoming Encounters Date Type Department Care Team (Late st Contact Info) Description 12/14/2024 8:15 AM EDT Office Visit Dermatology at [place] [address] [place] [address] Melvin Rivas MD [address] [facility] [place] [address] documented as of this encounter Visit Diagnoses Diagnosis History of malignant melanoma Personal history of malignant melanoma of skin History of basal cell carcinoma Personal history of other malignant neoplasm of skin Nevus Benign neoplasm of skin, site unspecified Seborrheic keratosis Other seborrheic keratosis documented in this encounter Care Teams Cattle Brander Relationship Specialty Start Date End Date Patrick Potter MD [address] [place] [address] PCP - General 08/08/10 documented as of this encounter
--- OUTSIDE RECORDS SUMMARY | 2024-04-27 20:24 | XMS_ITS | Encounter Summary ---
Author Organization [facility] Address [address] [place] [address] Care Team Providers Care Peeler Operator Name Role Phone Patrick Potter MD Primary Care Provider [phone] Encounter Details Date Type Department Care Team (Late st Contact Info) Description 07/25/2021 Lab Requisition [facility] Pathology & Laboratory Medicine - [address] [address] Outr Resulting Lab, Provider Social History Tobacco Use Types Packs/Day Years Used Date Smoking Tobacco: Never Assessed Interpersonal Safety Answer Date Record ed Physically Hurt Never 12/13/2019 Verbally Threaten Not on file 12/13/2019 Sex and Gender Information Value Date Recorded Sex Assigned at Not on file Legal Sex Male 18:29 EST Gender Identity Not on file Sexual Orientation Not on file documented as of this encounter Plan of Treatment Not on file documented as of this encounter Procedures Procedure Name Priority Date/Time Associated Diagnosis Comments CCP ANTIBODIES Routine 07/24/2021 16:15 EDT RHEUMATOID FACTOR Routine 07/24/2021 16: 15 EDT documented in this encounter Results * (ABNORMAL) RHEUMATOID FACTOR (07/24/2021 16:15 EDT) Rheumatoid Factor 21.0(H) <12.0 IU/mL 07/25/2021 16:53 EDT [facility] Blood VENOUS BLOOD / Unknown 07/24/2021 16:15 EDT 07/25/2021 16:34 EDT us Provider Outr Resulting Lab CHEMISTRY & BLOOD GA S ORDERABLES Final Result Performing Organization Address City/[facility]/ZIP Co de Phone Number [facility] [address] [place] [address] * CCP ANTIBODIES (07/24/2021 16:15 EDT) CCP Antibodies <2.5 <5.0 U/mL 07/26/2021 10:16 EDT [facility] Blood VENOUS BLOOD / Unknown 07/24/2021 16:15 EDT 07/25/2021 16:34 EDT us Provider Outr Resulting Lab IMMUNOLOGY AND SEROL OGY ORDERABLES Final Result Performing Organization Address [facility] Co de Phone Number [facility] [address] [place] [address] documented in this encounter Visit Diagnoses Not on filedocumented in this encounter Care Teams Peeler Operator Relationship Specialty Start Date End Date Patrick Potter MD [address] [place] [address] PCP - General 02/06/13 documented as of this encounter
--- OUTSIDE RECORDS SUMMARY | 2024-04-27 20:24 | XMS_ITS | Encounter Summary ---
Author Organization [facility] Address [address] [place] [address] Care Team Providers Care Clinical Trial Manager Name Role Phone Unavailable Primary Care Provider Unavailabl e Encounter Details Date Type Department Care Team (Late st Contact Info) Description 02/04/2013 Results Only [facility] Laboratory Services - [facility] ([facility]) [address] [place], [place] [id number] Rajiv Mckeon MD [address] [place] [address] Social History Tobacco Use Types Packs/Day Years [...] Date/Time Associated Diagnosis Comments SURGICAL PATHOLOGY Routine 02/04/2013 8:42 EDT documented in this encounter Results * SURGICAL PATHOLOGY (02/04/2013 8:42 EDT) Pathology Report: SURGICAL PATHOLOGY REPORT Reports generated via electronic interface contain original data; however they are lacking the format of the original report. Caution should be taken when reading/interpreti ng unformatted reports. Name: ? JEREMIAH EMMANUEL ? Accession #: ? [id number] ? : ? 1950 (Age: 63) ??M ? Collect Date: ? 02/04/2013 ? Location: ? [facility] ? Receive Date: ? 02/04/2013 ? Provider: RAJIV MCKEON MD Copy to: BRENDAN COOPER MD ? Final Pathologic Diagnosis: SKIN OF CHEEK, LEFT, EXCISION: - Basal cell carcinoma, nodular type. - Margins of excision negative, but close. ??- Lesion measures approximately 0.2 mm to the peripheral margin. ??- Lesion measures approximately 0.8 mm to the deep margin. ?? Document reviewed and electronically signed by: MAXIMILIANO FERNANDEZ MD Report ??Date: 02/06/2013 14:13 By the signature above, the attending physician certifies that he/she has personally conducted a gross and/or microscopic examination of the described specimens and rendered or confirmed the above diagnosis. Specimen(s) Received: Lesion left cheek Clinical History: Present 2 yrs Gross Description: ? Received in formalin labelled with proper patient identification (initials A, T) and lesion left cheek is an unoriented elliptical excision of albert skin (1.8 x 0.9 cm and is excised to a depth of 0.5 cm). There is a slightly eccentric ovoid albert smooth papule that measures 0.6 x 0.5 x 0.1 cm. ??There is also an eccentric 0.6 x 0.2 cm hartmann ulcerated area. ??The margins are inked. The specimen is serially sectioned and entirely submitted as 1 and 2 central sections and 3 tips, reverse en face. Danitza Rushing 02/05/2013 09:22 AM End of Report [facility] 02/04/2013 8:42 EDT 02/04/2013 8:42 EDT us Rajiv Mckeon MD PATHOLOGY ORDERABLES Final Result [facility] [address] [place] [address] documented in this encounter Visit Diagnoses Not on filedocumented in this encounter
--- OUTSIDE RECORDS SUMMARY | 2024-04-27 20:24 | XMS_ITS | Encounter Summary ---
[place] [address] Care Team Providers Care Care Advocate Name Role Phone Patrick Potter MD Primary Care Provider [phone] Encounter Details Date Type Department Care Team (Latest Contact Info) Description 11/03/2018 9:11 PM EDT - 11/03/2018 11:59 PM EDT Hospital [place] [phone] Discharge Disposition: Home Social History Tobacco Use [...] 8:15 AM EDT Office Visit Dermatology at [place] [address] [facility] [place] [phone] Melvin Rivas MD [address] [facility], [place] [address] documented as of this encounter Visit Diagnoses Not on filedocumented in this encounter Care Teams Care Advocate Relationship Specialty Start Date End Date Patrick Potter MD [address] [place] [address] PCP - General 08/08/10 documented as of this encounter
--- OUTSIDE RECORDS SUMMARY | 2024-04-27 20:24 | XMS_ITS | Encounter Summary ---
Author Organization [facility] Address [address] [place] [address] Care Team Providers Care Eligibility Technician Name Role Phone Unavailable Primary Care Provider Unavailabl e Encounter Details Date Type Department Care Team (Latest Contact Info) Description 01/16/2002 6:20 EDT - 01/16/2002 11:59 EDT Hospital Encounter [address] [address] Gelacio Su MD Discharge Disposition: Auto Discharge Social History Tobacco Use Types Packs/Day Years Used Date Smoking Tobacco: Never Assessed Sex and Gender Information Value Date Recorded Sex Assigned at Not on file Legal Sex Male 18:29 EST Gender Identity Not on file Sexual Orientation Not on file documented as of this encounter Discharge Disposition Disposition Code Departure Means Destination Auto Discharge documented in this encounter Plan of Treatment Not on file documented as of this encounter Procedures Procedure Name Priority Date/Time Associated Diagnosis Comments ABDOMEN AP+OBL OR CONED VIEWS Routine 01/16/2002 7:27 EDT documented in this encounter Results * ABDOMEN AP+OBL OR CONED VIEWS (01/16/2002 7:27 EDT) Anatomical Region Laterality Modality Other 01/16/2002 7:27 EDT Narrative 02/07/2009 2:18 EDT PRE LITHO, LOCATION OF STONES ABDOMEN AP AND OBLIQUE OR CONE VIEWS 01/16/02, 0720 hours FINDINGS: There is a left sided nephroureteral stent in place. There is a 1.1 x .6cm calculus adjacent to the proximal stent, likely within the proximal left ureter. There is a round calcification in the right hemipelvis adjacent to the sacrum, a distal right ureteral calculous cannot be excluded, please correlate with clinical history and examination. Calculi in the left pelvis are likely vascular and there are calculi in the region of the prostate gland. The bowel gas pattern is non-obstructed. The bone structures are unremarkable. D 01/19/02 T 01/20/02 /janette Procedure Note Kyler Young MD - 02/07/2009 PRE LITHO, LOCATION OF STONES ABDOMEN AP AND OBLIQUE OR CONE VIEWS 01/16/02, 0720 hours FINDINGS: There is a left sided nephroureteral stent in place. There is a 1.1 x .6cm calculus adjacent to the proximal stent, likely within the proximal left ureter. There is a round calcification in the right hemipelvis adjacent to the sacrum, a distal right ureteral calculous cannot be excluded, please correlate with clinical history and examination. Calculi in the left pelvis are likely vascular and there are calculi in the region of the prostate gland. The bowel gas pattern is non-obstructed. The bone structures are unremarkable. D 01/19/02 T 01/20/02 /janette us Richardson Virk MD IMG DIAGNOSTIC IMAGING OR DERABLES Final Result documented in this encounter Visit Diagnoses Not on filedocumented in this encounter
--- OUTSIDE RECORDS SUMMARY | 2024-04-27 20:24 | XMS_ITS | Encounter Summary ---
Author Organization [facility] [place] [address] Care Team Providers Care Medical Safety Director Name Role Phone Patrick Potter MD Primary Care Provider [phone] Encounter Details Date Type Department Care Team (Latest Contact Info) Description 12/12/2023 Travel Social History Tobacco Use Types Packs/Day Years [...] 8:15 AM EDT Office Visit Dermatology at [address] [phone] Melvin Rivas MD [address] [facility], [place] [address] documented as of this encounter Visit Diagnoses Not on filedocumented in this encounter Care Teams Medical Safety Director Relationship Specialty Start Date End Date Patrick Potter MD [address] [place] [address] PCP - General 08/08/10 documented as of this encounter
--- OUTSIDE RECORDS SUMMARY | 2024-04-27 20:24 | XMS_ITS | Encounter Summary ---
Author Organization [facility] [place] [address] Care Team Providers Care Proof Plate Maker Name Role Phone Patrick Potter MD Primary Care Provider [phone] Reason for Visit * Reason Comments Skin Check * Consultation (Routine) - Specialty Diagnoses / Procedures Referred By Bhumika dunham Referred To Contact Dermatology Diagnoses Actinic keratosis Actinic Keratosis Procedures Consult Patrick Potter MD [address] [place] [address] Melvin Rivas MD [address] [place] [address], [place] [address] Referral ID Status Reason Start Date Expiration Date V isits Requested Visits Authorized [id number] Consult, Test & Treat PCP Updated and/or Approved 03/31/2018 09/28/2018 6 6 Encounter Details Date Type Department Care Team (Late st Contact Info) Description 09/18/2018 3:00 PM EDT Office Visit Dermatology at [address] [address] Melvin Rivas MD [address] [place] [address], [facility] [place], [place] [id number] History of basal cell carcinoma; AK (actinic keratosis); Nevus Social History Tobacco Use Types Packs/Day Years [...] Progress Notes * Melvin Rivas MD - 09/18/2018 3:00 PM EDT Problem: 1. Skin checkup 2. 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 Ned José 3. New skin lesion of concern Jeremiah is a 68-year-old gentleman who is concerned about number of skin lesions. 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 He has a history of BCC as noted above. He is referred today by Dr. Patrick Potter for evaluation of his skin. He was seen in MarchDrAlfonso Potter and liquid nitrogen utilized to treat 2 hyperkeratotic actinic's one on the lower his nasal tip and one on the right lateral console bowl rim. Physical examination reveals good healing of the actinic keratoses treated with LN [address] Potterin March. There is however some slight recurrence on the lower nasal tip. He has an atypical pigmented lesion on the upper central back measuring about a centimeter in diameter. He has otherwise benign examination he has 2 actinic's on the right evangelical. Otherwise his benign examination of the hea d and the neck the chest the back the hands the arms the forearms the thighs and the calves. Patient does have a dilated pore of Jeromy on the mid central back. Assessment and plan: Actinic keratoses 1. LN 2 x 2 applied to the actinic's nasal tip and right evangelical 3 sites treated 2. Return to clinic as needed for new lesion/concerns. Rule out atypical nevus/melanoma upper central back 1. After obtaining the consent site was anesthetized and removed with shave biopsy 2. Submitted for pathologic analysis 3. Will notify patient about results when these are available within 1 week. History of BCCA left medial infraorbital fold. 1. No evidence of recurrence 2. Patient reassured 3. Patient asserts that the biopsy report showed positive margins and that a reexcision was scheduled but never carried out. However he has not had any recurrence and I would recommend we can just continue to follow this. CC: Patrick Potter MD documented in this encounter Plan of Treatment Upcoming Encounters Date Type Department Care Team (Late st Contact Info) Description 12/14/2024 8:15 AM EDT Office Visit Dermatology at [place] [address] [place] [address] Melvin Rivas MD [address], [place] [address] documented as of this encounter Visit Diagnoses Diagnosis History of basal cell carcinoma Personal history of other malignant neoplasm of skin AK (actinic keratosis) Actinic keratosis Nevus Benign neoplasm of skin, site unspecified documented in this encounter Care Teams Proof Plate Maker Relationship Specialty Start Date End Date Patrick Potter MD [address] [place] [address] PCP - General 08/08/10 documented as of this encounter
--- OUTSIDE RECORDS SUMMARY | 2024-04-27 20:24 | XMS_ITS | Encounter Summary ---
Author Organization [facility] [place] [address] Care Team Providers Care Plug Sorter Name Role Phone Patrick Potter MD Primary Care Provider [phone] Encounter Details Date Type Department Care Team (Late Contact Info) Description 12/18/2022 Telephone Dermatology at [address] [phone] Vee Herrera LPN Social History [...] on file documented as of this encounter Miscellaneous Notes * Telephone Encounter - Vee Herrera LPN - 12/18/2022 3:00 PM EDT 12/10/22 Left forehead, skin shave biopsy ED & C Bx: BCCa No further treatment necessary, return to clinic on 12/12/23 at 8 AM Reviewed biopsy results and Dr. Manriquez recommendation with patient. He voiced understanding. documented in this encounter Plan of Treatment Upcoming Encounters Date Type Department Care Team ([facility] Contact Info) Description 12/14/2024 8:15 AM EDT Office Visit Dermatology at [address] [phone] Melvin Rivas MD [address] [place] [address] RD, [place] [address] documented as of this encounter Visit Diagnoses Not on filedocumented in this encounter Care Teams Plug Sorter Relationship Specialty Start Date End Date Patrick Potter MD [address] [place] [address] PCP - General 08/08/10 documented as of this encounter
--- OUTSIDE RECORDS SUMMARY | 2024-04-27 20:24 | XMS_ITS | Encounter Summary ---
[place] [address] Care Team Providers Care Hospital Admissions Officer Name Role Phone Patrick Potter MD Primary Care Provider [phone] Reason for Visit * Reason Comments Suture / Staple Removal Encounter Details Date Type Department Care Team (Late st Contact Info) Description 11/17/2018 10:45 AM EDT Office Visit Dermatology at [place] [address] [place] [phone] Melvin Rivas MD [address] [facility], [place] [address] Visit for suture removal Social History Tobacco Use Types Packs/Day Years [...] Progress Notes * Melvin Rivas MD - 11/17/2018 10:45 AM EDT Problem: Follow-up for suture removal and biopsy results Isacc follows up and had an uneventful postoperative course. The biopsy showed no residual melanoma in situ. Physical examination reveals excellent healing of the excision site on the upper central back Assessment plan: Malignant melanoma in situ, central back 1. Sutures removed 2. September DC wound care instructions 3. Recommend I see patient again in another 6 months for repeat check. Reinforced sun avoidance precautions. 4. Patient reassured about his excellent prognosis. CC: Patrick Potter MD documented in this encounter Plan of Treatment Upcoming Encounters Date Type Department Care Team (Late st Contact Info) Description 12/14/2024 8:15 AM EDT Office Visit Dermatology at [place] [address] [place] [address] Melvin Rivas MD [address] [facility] [address], [place] [address] documented as of this encounter Visit Diagnoses Diagnosis Visit for suture removal Encounter for removal of sutures documented in this encounter Care Teams Hospital Admissions Officer Relationship Specialty Start Date End Date Patrick Potter MD [address] [place] [address] PCP - General 08/08/10 documented as of this encounter
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
--- OUTSIDE RECORDS SUMMARY | 2024-04-27 20:24 | XMS_ITS | Encounter Summary ---
Author Organization [facility] [place] [address] Care Team Providers Care Weather Analyst Name Role Phone Patrick Potter MD Primary Care Provider [phone] Encounter Details Date Type Department Care Team (Late st Contact Info) Description 10/19/2011 3:06 PM EDT - 10/19/2011 11:59 PM EDT Hospital Encounter XRay at [address] [place] [address] Shoulder pain Social History Tobacco Use Types Packs/Day Years [...] 8:15 AM EDT Office Visit Dermatology at [place] [address] [place] [phone] Melvin Rivas MD [address] [facility], [place] [address] documented as of this encounter Procedures Procedure Name Priority Date/Time Associated Diagnosis Comments XR SHOULDER Routine 10/19/2011 3:16 PM EDT Shoulder pain documented in this encounter Results * XR shoulder (10/19/2011 3:16 PM EDT) Anatomical Region Laterality Modality Shoulder N/A Radiographic Jennie ging 10/19/2011 3:16 PM EDT Narrative 10/19/2011 3:48 PM EDT Examination SHOULDER COMPLETE/RIGHT -4 views Clinical History Reason for exam and clinical history: rt SHOULDER PAIN AMD BICEP PAIN; per patient changed to right shoulder Comparison None Technique Findings The patient had interval decompression surgery at the right AC joint. ??The AC interval is widened. ??The glenoid humeral alignment is maintained and there are small osteophytes arising from the greater tuberosity. ??No periarticular calcifications. Impression ? 1. interval right AC joint decompression. ? 2. Small humeral head osteophytes. Procedure Note Ilene Lorenz MD - 10/19/2011 Examination SHOULDER COMPLETE/RIGHT -4 views Clinical History Reason for exam and clinical history: rt SHOULDER PAIN AMD BICEP PAIN; per patient changed to right shoulder Comparison None Technique Findings The patient had interval decompression surgery at the right AC joint. TheAC interval is widened. The glenoid humeral alignment is maintained andthere are small osteophytes arising from the greater tuberosity. No periarticular calcifications. Impression 1. interval right AC joint decompression. 2. Small humeral head osteophytes. Eliza Hunter MD IMG DX ORDERABLES documented in this encounter Visit Diagnoses Diagnosis Shoulder pain Pain in joint, shoulder region documented in this encounter Care Teams Weather Analyst Relationship Specialty Start Date End Date Patrick Potter MD [address] [address] PCP - General 08/08/10 documented as of this encounter
--- OUTSIDE RECORDS SUMMARY | 2024-04-27 20:24 | XMS_ITS | Encounter Summary ---
Author Organization [facility] Address [facility] [place] [address] Care Team Providers Care Garnett Fixer Name Role Phone Patrick Potter MD Primary Care Provider [phone] Reason for Referral * Physical Therapy (Routine) - Specialty Diagnoses / Procedures Referred By Bhumika t Referred To Contact Diagnoses Ankle instability, left Usman Donaldson MD [facility] [place] [address] Referral ID Status Reason Start Date Expiration Date V isits Requested Visits Authorized [id number] Evaluate and Treat 12/09/2018 06/07/2019 12 12 Reason for Visit * Reason Comments Establish Care left ankle peroneus brevis tendon tear * Consultation (Routine) - Specialty Diagnoses / Procedures Referred By Contjessica t Referred To Contact Orthopaedics Diagnoses Strain of muscle(s) and tendon(s) of peroneal muscle group at lower leg level, left leg, subsequent encounter LEFT ANKLE PERONEUS BREVIS TENDON TEAR Ricardo Monteiro MD [address] [place] [address] Alejo Diez MD [facility] [place] [address] Referral ID Status Reason Start Date Expiration Date V isits Requested Visits Authorized [id number] Consult, Test & Treat [facility] 11/06/2018 11/06/2019 12 12 Encounter Details Date Type Department Care Team (Late st Contact Info) Description 12/09/2018 11:10 AM EDT Office [place] [phone] Ankle instability, left Social History Tobacco Use Types Packs/Day Years [...] Sign Reading Time Taken Comments Blood Pressure 125/76 12/09/2018 11:25 AM EDT Pulse 79 12/09/2018 11:25 AM EDT Temperature - - Respiratory Rate - - Oxygen Saturation - - Inhaled Oxygen Concentration - - Weight 91.2 kg (201 lb) 12/09/2018 11:25 AM EDT measured Height 166.4 cm (5' 5.51) 12/09/2018 11:25 AM E DT measured Body Mass Index 32.93 12/09/2018 11:25 AM EDT documented in this encounter Progress Notes * Usman Donaldson - 12/09/2018 11:10 AM EDT Orthopaedic Office Note Attending: Rg CC: Left ankle injury History of Present Illness: Jeremiah Mcclure is a 68 y.o. male who comes in today complaining of instability and pain about his left ankle. The patient fell on the ice in June and has been dealingwith this since that time. He reports that he has vague lateral pain that worsens with activity. Hedoes take Aleve with some relief. His most notable symptom is instability. He is wearing a brace with some improvement, but feels that his ankle gives out a little easily without a brace. He has not noted any significant swelling or erythema about the ankle. He never had significant problems with this ankle prior to his injury this past winter. Past Medical History: Patient Active Problem List Diagnosis Code ??? Kidney stones and stent N20.0 ??? S/P inguinal herniorrhaphy Z98.890, Z87.19 ??? S/P complete repair of rotator cuff - right Z98.890 Past Surgical History: Past Surgical History: Procedure Laterality Date ??? PRO PARTIAL REMOVAL, CLAVICLE 02/13/2011 CLAVICULECTOMY, PARTIAL performed by FRANCISCO HAMMOND at [facility] ??? PRO SHLDR ARTHROSCOP, EXTEN DEBRIDE 02/13/2011 ARTHROSCOPY SHOULDER DEBRIDEMENT EXTENSIVE performed by FRANCISCO HAMMOND at [facility] ??? PRO SHLDR ARTHROSCOP, PART ACROMIOPLAS 02/13/2011 ARTHROSCOPY SHOULDER, SUBACROMIAL DECOMPRESSION performed by FRANCISCO HAMMOND at [facility] ??? PRO SHLDR ARTHROSCOP, SURG, W ROTAT CUFF REPR 02/13/2011 ARTHROSCOPY SHOULDER, ROTATOR CUFF REPAIR performed by FRANCISCO HAMMOND at [facility] ??? PRO UNLISTED PROCEDURE ARTHROSCOPY 02/13/2011 ARTHROSCOPIC TENOTOMY, BICEPS TENDON performed by FRANCISCO HAMMOND at [facility] Allergies Allergen Reactions ??? Keflex [Cephalexin] Social History: Drinks alcohol, denies tobacco. 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 Left lower extremity exam: Review of Systems: As above, otherwise negative Objective: Temp: -- Heart Rate: [79] Resp: -- BP: (125)/(76) SpO2: -- Heart Rate from SpO2: -- Gen- NAD, awake, alert, appr HEENT- NC, AT CV- RRR checked peripherally Pulm- No incr WOB Skin- Intact Psych- Nl mood and affect Left lower extremity exam: No significant swelling or evidence of injury about the ankle. No significant tenderness to palpation over the peroneal tendons. Dorsiflexion to 20 degrees above neutral, plantar flexion to 50 degrees. Normal range of motion with inversion eversion. Resisted eversion does not cause pain. No evidence of peroneal subluxation Anterior drawer grossly normal compared to contralateral side with increased translation sulcus sign. Increased talar tilt on the left. Intact sensation light touch in all nerve description of the foot. Foot warm well perfused, brisk cap refill. Imaging: X-ray a reviewed in the office today. X-ray does demonstrate a small avulsion fracture of the posterior malleolus. MRI imaging has been completed but we are only able to review the report today. Report indicates that there is an ATFL sprain as well as a longitudinal tear of the Proteus brevis with an intact insertion. Assessment/Plan: 68 y.o. male who presents with left ankle instability after a fall this past June. The patient's history, symptoms, and clinical exam are all consistent with anterolateral ankle instability. At this point, he is essentially brace dependent and finds that his ankle is quite and stable when he does not have the added support. We recommended that he pursue proprioceptive physical therapy and strengthening to help alleviate his symptoms. We would anticipate that this would provide him with significant relief as is normally the case with the vast majority of patients. If the patient continues to have symptoms after 3 months, we would be happy to see him back for further evalu ation and consideration of a surgical stabilization procedure. Patient understands thet plan and all questions were answered. We will see him back on an as-needed basis if he continues to have symptoms related to his ankle. * Alejo Diez MD - 12/09/2018 11:10 AM EDT I saw the patient in conjunction with Dr. Donaldson and agree with his assessment and plan. 68-year-old gentleman with an inversion ankle sprain and MRI report consistent with lateral ligament injury and peroneal tendon tendinitis/interstitial tearing of the peroneal tendons. We cannot view images of the MRI today. He does not have pain with resisted eversion. We agreed to move forward with treatingthis as a bad sprain and working on proprioceptive strengthening. If he gets to the point that he is having recurrent sprains or persistent pain over his peroneal tendons, then a discussion of operative treatment would be prudent. Typically we would give the 6 months of focus proprioceptive strengthening before proceeding to any sort of surgery. documented in this encounter Plan of Treatment Upcoming Encounters Date Type Department Care Team (Late st Contact Info) Description 12/14/2024 8:15 AM EDT Office Visit Dermatology at [place] [address] [facility] [place] [address] Melvin Rivas MD [address] [facility], [place] [address] Scheduled Referrals Name Type Priority Associated Diagnoses Orde r Schedule Referral to Physical Therapy Outpatient Referral Routine Ankle Instability, Left Ordered: 12/09/2018 documented as of this encounter Visit Diagnoses Diagnosis Ankle instability, left documented in this encounter Care Teams Garnett Fixer Relationship Specialty Start Date End Date Patrick Potter MD [address] [place] [address] PCP - General 08/08/10 documented as of this encounter
--- OUTSIDE RECORDS SUMMARY | 2024-04-27 20:24 | XMS_ITS | Encounter Summary ---
[place] [address] Care Team Providers Care Steamfitter Name Role Phone Patrick Potter MD Primary Care Provider [phone] Reason for Visit * Reason Comments Skin Check 6 mo Encounter Details Date Type Department Care Team (Late st Contact Info) Description 12/05/2020 8:15 AM EDT Office Visit Dermatology at [address] [phone] Melvin Rivas MD 580 [facility] [place] [address] History of malignant melanoma; History of basal cell carcinoma; Nevus; Seborrheic keratosis; AK (actinic keratosis) Social History [...] Progress Notes * Melvin Rivas MD - 12/05/2020 8:15 AM EDT Problem: 1. 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 It has now been 2 years since his melanoma in situ was excised from his upper back. He has not noted any new lesions of concern. Physical examination reveals a pleasant 70-year-old gentleman who has no evidence of recurrent pigmentation at the central upper back melanoma excision site. It remains well-healed. He has benign examination of the scalp although he does have 6 hyperkeratotic actinic keratoses at the vertex of his scalp. He has a benign examination of the face the chest the back the hands the arms the forearms the thighs and the calves. Assessment plan: History of malignant melanoma in situ, central back, November 2018 1. Patient reassured about today's benign skin examination 2. Recommend that I now see him on a once yearly basis. 3. Continue sun avoidance precautions. Actinic keratosis vertex of scalp 1. LN x2 applied each of 6 sites. History of BCCA left medial infraorbital fold. 1. No evidence of recurrence. CC: Patrick Potter MD documented in this encounter Plan of Treatment Upcoming Encounters Date Type Department Care Team (Late st Contact Info) Description 12/14/2024 8:15 AM EDT Office Visit Dermatology at [place] [address] [place] [phone] Melvin Rivas MD 580 [facility] [place] [address] documented as of this encounter Visit Diagnoses Diagnosis History of malignant melanoma Personal history of malignant melanoma of skin History of basal cell carcinoma Personal history of other malignant neoplasm of skin Nevus Benign neoplasm of skin, site unspecified Seborrheic keratosis Other seborrheic keratosis AK (actinic keratosis) Actinic keratosis documented in this encounter Care Teams Steamfitter Relationship Specialty Start Date End Date Patrick Potter MD [address] [place] [id number] PCP - General 08/08/10 documented as of this encounter
--- OUTSIDE RECORDS SUMMARY | 2024-04-27 20:24 | XMS_ITS | Clinical Summary ---
Author Organization [facility] [place] [address] Care Team Providers Care Chestnut Tanner Name Role Phone Patrick Potter MD Primary Care Provider [phone] Allergies Active Allergy Reactions Criticality Noted Date Comments Cephalexin 01/25/2011 Medications Medication Sig Dispensed Refills Start Date End Date Status atorvastatin (LIPITOR) 20 mg Tablet TAKE ONE TABLET BY MOUTH AT BEDTIME 4 09/03/2018 Active rosuvastatin (Crestor) 20 mg tablet Take 20 mg by mouth daily. 07/25/2022 Active losartan-hydroCHLORO thiazide (Hyzaar) 50-12.5 mg tablet Take 1 tablet by mouth daily. 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 Kidney stones and stent 01/25/2011 S/P inguinal herniorrhaphy 01/25/2011 S/P complete repair of rotator cuff - right 01/11 Social History Tobacco Use Types Packs/Day Years Used Date Smoking Tobacco: Never Smokeless Tobacco: Never Alcohol Use Standard Drinks/Week Comments Yes 0 (1 standard drink = 0.6 oz pur e alcohol) 6-8 Sex and Gender Information Value Date Recorded Sex Assigned at Not on file Gender Identity Not on file Sexual Orientation Not on file Last Filed Vital Signs Vital Sign Reading Time Taken Comments Blood Pressure 147/81 04/11/2021 2:39 PM EST Pulse 92 04/11/2021 2:39 PM EST Temperature 36.2 ??C (97.2 ??F) 02/13/2011 2:22 PM ED T Respiratory Rate 16 02/13/2011 3:00 PM EDT Oxygen Saturation 96% 02/13/2011 3:00 PM EDT Inhaled Oxygen Concentration - - Weight 87.1 kg (192 lb) 04/11/2021 2:39 PM EST r eported Height 167.6 cm (5' 6) 04/11/2021 2:39 PM EST r eported Body Mass Index 30.99 04/11/2021 2:39 PM EST Plan of Treatment Upcoming Encounters Date Type Department Care Team (Late st Contact Info) Description 12/14/2024 8:15 AM EDT Office Visit Dermatology at [place] 580 [facility] [place] [phone] Melvin Rivas MD [address] [facility] [address], [place] [address] Health Maintenance Due Date Last Done Comments CT Colonography 1950 Colonoscopy 1950 Colorectal Cancer Screening 1950 FIT DNA 1952 FIT 1950 Sigmoidoscopy (10 year) with FIT yearly 1950 Sigmoidoscopy 1950 Hepatitis C Screening 01/26/1970 Tetanus/Diphtheria/Pertussis Vaccines (1 - Tdap) 01/26 Zoster vaccine (1 of 2) 01/26/2002 Advance Directive 01/26/2007 Pneumoccocal Vaccine: 65+ (1 of 1 - PCV) 01/26/2017 Covid-19 Vaccine (1 - 2023- season) 2024 Influenza (Flu) vaccine (1 o f 1 - Influenza standard series) 01/12/2024 Medical Devices Implanted Type Area Macerator Operator Device Identifier Shelf Expiration Date Model / Serial / Lot Stebbins,Crksmercedes w Ti,Dl4.5mm Fw#2 ([id number]) - [id number] Implanted:Qty : 1 on 02/13/2011 at [facility] IMPLANTS Right: Shoulder [employer] - [id number] 01/11/2015 [id number] -45 / / [id number] Mabel Chavis w 4.5mm Peek Fw#2 ([id number]) - [id number] Implanted:Qty : 1 on 02/13/2011 at [facility] IMPLANTS Right: Shoulder [employer] - [id number] 02/11/2016 [id number] F-45 / / [id number] Care Teams Chestnut Tanner Relationship Specialty Start Date End Date Patrick Potter MD [address] [place], [place] [id number] PCP - General 08/08/10
--- OUTSIDE RECORDS SUMMARY | 2024-04-27 20:24 | XMS_ITS | Encounter Summary ---
Author Organization [facility] Address [address] [place] [address] Care Team Providers Care Cash On Delivery Clerk Name Role Phone Patrick Potter MD Primary Care Provider Encounter Details Date Type Department Care Team (Late st Contact Info) Description 08/09/2023 Lab Requisition [facility] Pathology & Laboratory Medicine - [address] [address] Chandni Garcia, DO [address] [facility] [address] [place], [place] [address] Benign neoplasm, unspecified site Social History Tobacco Use Types Packs/Day Years [...] Priority Date/Time Associated Diagnosis Comments SURGICAL PATHOLOGY Today 08/09/2023 7: 55 EDT Benign neoplasm, unspecified site documented in this encounter Results * SURGICAL PATHOLOGY (08/09/2023 7:55 EDT) Note to Patient The following pathology results have been interpreted by your pathologist and may be available to you before your health provider has had the opportunity to review them. Please allow time for your provider to receive these results and explore management options, if applicable. 08/14/2023 13:34 [facility] Final Diagnosis A. COLON, 70 CM, POLYPS, BIOPSY: - Tubular adenoma fragments. B. RECTUM, POLYP, BIOPSY: - Tubular adenoma. 08/14/2023 13:34 [facility] Attestation By the signature below, the attending physician certifies that they have 1) personally conducted a gross and/or microscopic examination of the described specimen(s), and/or personally interpreted the results of laboratory testing of the described specimen(s), and 2) personally rendered or confirmed the above diagnosis. 08/14/2023 13:34 [facility] at 1334 Clinical History History polyps, colonoscopy screening, external hemorrhoid, diverticula, polyps 08/14/2023 13:34 [facility] Gross Description A. Received in formalin labelled with proper patient identification (initials A, T) and colon polyps at 70 cm x 2 are 5 fragments of albert tissue (ranging from 0.2 cm to 0.7 cm in greatest dimension). The specimen is entirely submitted in A1. B. Received in formalin labelled with proper patient identification (initials A, T) and rectal polyp is a single fragment of albert tissue (0.4 x 0.4 x 0.2 cm). The specimen is entirely submitted in B1. HIRA BEST(ASCP) 08/12/2023 11:21 08/14/2023 13:34 [facility] Performing Lab [facility] 08/14/2023 13:34 [facility] Scanned Images 08/14/2023 13:34 [facility] Tissue SPECIMEN FROM RECTUM / Unknown 08/09/2023 7:55 EDT 08/09/2023 18:10 EDT Tissue specimen (specimen) SPECIMEN FROM RECTUM / Unknown 08/09/2023 7:55 EDT 08/09/2023 18:10 EDT us Chandni Garcia DO PATHOLOGY ORDERABLES Final Re sult [facility] [address] [place], [place] [address] documented in this encounter Visit Diagnoses Diagnosis Benign neoplasm, unspecified site documented in this encounter Care Teams Cash On Delivery Clerk Relationship Specialty Start Date End Date Patrick Potter MD [address] [place] [address] PCP - General 02/06/13 documented as of this encounter
--- OUTSIDE RECORDS SUMMARY | 2024-04-27 20:24 | XMS_ITS | Encounter Summary ---
Author Organization [facility] [place] [address] Care Team Providers Care Associate Professor Of Anthropology Name Role Phone Patrick Potter MD Primary Care Provider [phone] Encounter Details Date Type Department Care Team (Latest Contact Info) Description 02/13/2011 9:27 AM EDT - 02/13/2011 3:37 PM EDT Hospital Encounter [place] [phone] Francisco Cho MD [facility] [place] [address] Discharge Disposition: Home Social History Tobacco Use [...] Sign Reading Time Taken Comments Blood Pressure 104/72 02/13/2011 3:00 PM EDT Pulse 72 02/13/2011 3:00 PM EDT Temperature 36.2 ??C (97.2 ??F) 02/13/2011 2:22 [...] goes away in 12 - 24 hours. [facility] 8:00-5:30 [facility] 03/12 ask for your doctor sales and distribution clerk What to expect after a nerve block [...] after hours and ask for the anesthesiologist sales and distribution clerk. * Patient Instructions* Wanda Landaverde PA - 02/13/2011 12:59 PM EDT Same Day Surgery Post Operative Orders and Discharge Instructions For Rotator Cuff or Labral repair Jeremiah Mcclure [id number] 07/28/2010 Diagnosis: Status Post Right Shoulder Arthroscopy, [...] encounter Miscellaneous Notes * Miscellaneous - Provider, Lavell - 02/13/2011 9:21 PM EDT * Op Note - Francisco Cho MD - 02/13/2011 1:57 PM EDT OPERATIVE NOTE DATE OF PROCEDURE: 02/13/2011 DATE OF DICTATION: 02/13/2011 SURGEON: FRANCISCO CHO MD TECHNICAL SPEC: HOLLY LYLES M.D. PREOPERATIVE DIAGNOSES: 1. Right [...] Right open distal clavicle resection (1 cm) (97933). 2. Right shoulder arthroscopy with extensive debridement (13301). 3. Right arthroscopic acromioplasty (34419). 4. Right arthroscopic rotator cuff repair utilizing Arthrex peak corkscrew anchors and fiber wire (65628). 5. Right arthroscopic biceps tenotomy (60528). OPERATIVE INDICATIONS: The patient is a 61-year-old [...] where a time-out was performed as per [facility] protocol. At that point, he was placed [...] solution. The deltotrapezial fascia was approximated using [id number] sutures of #2 Ethibond. The subcutaneous tissue [...] 8:15 AM EDT Office Visit Dermatology at [place] [address] [facility] [place] [address] Melvin Rivas MD [address] [facility], [place] [address] documented as of this encounter Procedures Procedure [...] MAR Action Action Date Dose Rate Site lactated ringers infusion 1,000 mL 1,000 mL, [...] RN) documented in this encounter Care Teams Associate Professor Of Anthropology Relationship Specialty Start Date End Date Patrick Potter MD [address] [place] [id number] PCP - General 08/08/10 documented as of this encounter
--- OUTSIDE RECORDS SUMMARY | 2024-04-27 20:24 | XMS_ITS | Encounter Summary ---
Author Organization [facility] [place] [address] Care Team Providers Care Print Operator Name Role Phone Patrick Potter MD Primary Care Provider [phone] Encounter Details Date Type Department Care Team (Late st Contact Info) Description 09/26/2018 Telephone Dermatology at [address] [phone] Vee Herrera LPN Social History [...] Telephone Encounter - Vee Herrera LPN - 09/26/2018 1:39 PM EDT 09/18/18 irwin right central back shave biopsy Dx: Melanoma in the upper layers of skin only. Very early stage. Dr. Rivas recommends excising the area. Reviewed biopsy results and Dr. Manriquez recommendation with patient. He wants to proceed with excision. Call transferred to scheduling pocket secretary assembler. documented in this encounter Plan of Treatment Upcoming Encounters Date Type Department Care Team (Late Contact Info) Description 12/14/2024 8:15 AM EDT Office Visit Dermatology at [address] [phone] Melvin Rivas MD [address] [facility] [address] [address], [place] [address] documented as of this encounter Visit Diagnoses Not on filedocumented in this encounter Care Teams Print Operator Relationship Specialty Start Date End Date Patrick Potter MD [address] [place] [address] PCP - General 08/08/10 documented as of this encounter
--- OUTSIDE RECORDS SUMMARY | 2024-04-27 20:24 | XMS_ITS | Encounter Summary ---
[place] [address] Care Team Providers Care School Bus Driver Name Role Phone Patrick Potter MD Primary Care Provider [phone] Reason for Visit * Reason Comments Annual Exam Encounter Details Date Type Department Care Team (Late st Contact Info) Description 12/10/2022 8:15 AM EDT Office Visit Dermatology at [address] [phone] Melvin Rivas MD [address] [facility], [place] [address] History of malignant melanoma; History of basal [...] Progress Notes * Melvin Rivas MD - 12/10/2022 8:15 AM EDT Problem: 1. Annual skin checkup 2. History of malignant melanoma in situ, central upper back, November 2018 3. 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 Otis José 4. 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 He has been doing well. 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 He tries to wear hat and to remember to use his sunscreen. Physical examination reveals a pleasant 72-year-old gentleman who has a benign examination of the head and the neck the chest the back the hands on forearms thighs and calves. There is a well-healed scar on the upper central back at the site of his melanoma excision. There is no evidence of recurrent pigmentation. He has a crusting scabbing lesion on the left forehead concerning for possible BCCA. It has been present for several years he states. He has several actinic keratoses on the vertex ofscalp. Assessment plan: History of malignant melanoma in situ, central back, November 2018 1. Patient reassured about today's benign skin examination 2. Continue sun avoidance precautions. Stressed the importance of sunscreen use 3. Return to clinic in a year for repeat check. Actinic keratosis versus scalp 1. Again this visit LN 2 x 2 was applied each of 5 sites 2. We will continue to keep an eye on this area Rule out irritated seborrheic keratosis versus possible basal cell carcinoma left forehead 1. After obtaining informed patient consent, site was anesthetized and removed with shave C&D 2. Triple antibiotic ointment bandage placed 3. Wound care instruction was given. After curettage site measured 1 cm in diameter. 4. Return to clinic in another year for repeat check. CC: Patrick Potter MD documented in this encounter Plan of Treatment Upcoming Encounters Date Type Department Care Team (Late st Contact Info) Description 12/14/2024 8:15 AM EDT Office Visit Dermatology at [place] [address] [facility] [place] [address] Melvin Rivas MD [address] [facility], [place] [address] documented as of this encounter Visit Diagnoses Diagnosis History of malignant melanoma Personal history of malignant melanoma of skin History of basal cell carcinoma Personal history of other malignant neoplasm of skin AK (actinic keratosis) Actinic keratosis documented in this encounter Care Teams School Bus Driver Relationship Specialty Start Date End Date Patrick Potter MD [address] [place] [id number] PCP - General 08/08/10 documented as of this encounter
--- OUTSIDE RECORDS SUMMARY | 2024-04-27 20:24 | XMS_ITS | Encounter Summary ---
Author Organization [facility] Address [facility] [place] [address] Care Team Providers Care Academic Specialist Name Role Phone Patrick Potter MD Primary Care Provider [phone] Reason for Visit * Reason Comments Follow Up Surgery R shldr scope, dos 1 Encounter Details Date Type Department Care Team (Late st Contact Info) Description 05/04/2011 8:45 AM EST [place] [phone] Bony Cho MD [facility] DR [place] [address] H/O: RCT (rotator cuff tear) (Primary Dx) [...] Progress Notes * Bony Cho MD - 05/04/2011 9:04 AM EST ORTHOPEDIC NOTE Mr. Mcclure returns 11 weeks status post repair of a large right rotator cuff tear, open distal clavicle resection, and biceps tenotomy. 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 He is very pleased with his results. He is basically having no pain. He is completing therapy. Examination today, Neuro/Musculoskeletal Exam: His wounds are fine. His total active elevation is 170 degrees symmetric with his left side. He has excellent strength. Distal neurovascular exam is intact. PLAN: At this point, I have reviewed precautions with him as I am concerned he will do too much such as splitting wood, etc. Hopefully, he will be compliant. We will plan to check on him on a p.r.n. basis. CC: Patrick Potter M.D. documented in this encounter Plan of Treatment Upcoming Encounters Date Type Department Care Team (Late st Contact Info) Description 12/14/2024 8:15 AM EDT Office Visit Dermatology at [place] [address] [place] [phone] Melvin Rivas MD [address] [facility] [address] [address], [place] A DERMATOLOGY [place], [place] [phone] documented as of this encounter Visit Diagnoses Diagnosis H/O: RCT (rotator cuff tear)- Primary Personal history of other musculoskeletal disorders documented in this encounter Care Teams Academic Specialist Relationship Specialty Start Date End Date Patrick Potter MD [address] [place] [id number] PCP - General 08/08/10 documented as of this encounter
--- OUTSIDE RECORDS SUMMARY | 2024-04-27 20:24 | XMS_ITS | Encounter Summary ---
Author Organization [facility] [place] [address] Care Team Providers Care Rn Cardiac Rehab Name Role Phone Patrick Potter MD Primary Care Provider [phone] Encounter Details Date Type Department Care Team (Late st Contact Info) Description 10/17/2011 Orders [place] [phone] Wanda Landaverde PA [facility] [place] [address] Shoulder pain (Primary Dx) Social History Tobacco Use Types Packs/Day Years [...] 8:15 AM EDT Office Visit Dermatology at [place] [address] [place] [address] Melvin Rivas MD 580 [facility], [place] [address] documented as of this encounter Results * XR shoulder (10/19/2011 [...] in this encounter Visit Diagnoses Diagnosis Shoulder pain- Primary Pain in joint, shoulder region Shoulder pain Pain in joint, shoulder region documented in this encounter Care Teams Rn Cardiac Rehab Relationship Specialty Start Date End Date Patrick Potter MD [address] [address] PCP - General 08/08/10 documented as of this encounter
--- OUTSIDE RECORDS SUMMARY | 2024-04-27 20:24 | XMS_ITS | Encounter Summary ---
Author Organization [facility] [place] [address] Care Team Providers Care Kennel Helper Name Role Phone Patrick Potter MD Primary Care Provider [phone] Reason for Visit * Reason Comments Medication Refill Encounter Details Date Type Department Care Team (Late Contact Info) Description 01/04/2024 Refill Dermatology at [address] [phone] Melvin Rivas MD [address] [place] [phone] Social History Tobacco Use Types Packs/Day Years [...] 8:15 AM EDT Office Visit Dermatology at [address] [phone] Melvin Rivas MD [address] [place] [phone] documented as of this encounter Visit Diagnoses Not on filedocumented in this encounter Care Teams Kennel Helper Relationship Specialty Start Date End Date Patrick Potter MD [address] [place] [id number] PCP - General 08/08/10 documented as of this encounter
--- OUTSIDE RECORDS SUMMARY | 2024-04-27 20:24 | XMS_ITS | Clinical Summary ---
Author Organization [facility] Address [address] [place] [address] Care Team Providers Care Reel Cutter Name Role Phone Patrick Potter MD Primary Care Provider [phone] Social History Tobacco Use Types Packs/Day Years Used Date Smoking Tobacco: Never Assessed Interpersonal Safety Answer Date Record ed Physically Hurt Never 12/13/2019 Verbally Threaten Not on file 12/13/2019 Sex and Gender Information Value Date Recorded Sex Assigned at Not on file Legal Sex Male 18:29 EST Gender Identity Not on file Sexual Orientation Not on file Plan of Treatment Health Maintenance Due Date Last Done Comments Hepatitis C Screen 1950 Fall Risk Screening 01/26/2017 COVID-19 Vaccine (2023-25 season) 2024 RSV Immunization ( o r 60+ Years) (1 - 1-dose 75+ series) 01/26/2027 Insurance [employer] MEDICARE Care Teams Reel Cutter Relationship Specialty Start Date End Date Patrick Potter MD [address] [place] [phone] PCP - General 02/06/13
--- OUTSIDE RECORDS SUMMARY | 2024-04-27 20:24 | XMS_ITS | Referral Summary ---
Author Organization [facility] Address [address] [place] [address] Care Team Providers Care Corporate Event Planner Name Role Phone Patrick Potter MD Primary Care Provider Social History Tobacco Use Types Packs/Day Years Used Date Smoking Tobacco: Never Assessed Interpersonal Safety Answer Date Record ed Physically Hurt Never 12/13/2019 Verbally Threaten Not on file 12/13/2019 Sex and Gender Information Value Date Recorded Sex Assigned at Not on file Legal Sex Male 18:29 EST Gender Identity Not on file Sexual Orientation Not on file Plan of Treatment Not on file Insurance [employer] MEDICARE Care Teams Corporate Event Planner Relationship Specialty Start Date End Date Patrick Potter MD [address] [place] [phone] PCP - General 02/06/13
--- OUTSIDE RECORDS SUMMARY | 2024-04-27 20:24 | XMS_ITS | Encounter Summary ---
Author Organization [facility] [place] [address] Care Team Providers Care Cover Stitch Machine Operator Name Role Phone Patrick Potter MD Primary Care Provider [phone] Reason for Visit * Consultation (Routine) - Closed Specialty Diagnoses / Procedures Referred By Contjessica t Referred To Contact Vascular Surgery Diagnoses Myalgia, unspecified site Activated protein C resistance Patrick Potter MD [address] [place] [address] [facility] [address] [place] [address] Referral ID Status Reason Start Date Expiration Date V isits Requested Visits Authorized [id number] Closed Consult, Test & Treat Connection Center PCP Updated and/or Approved 03/08/2021 09/06/2021 6 6 Encounter Details Date Type Department Care Team (Late st Contact Info) Description 04/11/2021 2:30 PM [facility] Tech Visit [place] [address] Sunday Jhaveri, RVT Abnormal ankle brachial index ([place]) Social History [...] 8:15 AM EDT Office Visit Dermatology at [place] [address] [facility] [place] [phone] Melvin Rivas MD [address], [place] [address] documented as of this encounter Procedures Procedure Name Priority Date/Time Associated Diagnosis Comments PRG NON-INVASIVE PHYSIOLOGIC STUDY EXTREMITY ART 2 LEVEL Routine 04/11/2021 1:49 PM EST Abnormal ankle brachial index ([place]) documented in this encounter Results * [place], legs, multiple levels (04/11/2021 1:49 PM EST) VB Text Report Department: Vascular Surgery Lab Patient: [id number] (JEREMIAH EMMANUEL) CPT: 57737 ICD10: R68.89 Referring Physician: BARRINGTON ARCHER APRN ?? Indications: ??abnormal ABIs outside facility, cold feet Diabetes mellitus: no ICD10 Diagnosis Code: R68.89 Findings: Right ?Pressure (mm Hg) ?? [place] ??Waveform ?? Brachial Artery ?132 ? Common Femoral Artery ?Triphasic ?? Popliteal Artery ? Triphasic ?? Dorsalis Pedis (Ankle) Artery ?164 ? 1.24 ??Triphasic ?? Posterior Tibial (Ankle) Artery ??160 ? 1.21 ??Triphasic ?? Left ? Pressure (mm Hg) ?? [place] ??Waveform ?? Brachial Artery ?132 ? Common Femoral Artery ?Triphasic ?? Popliteal Artery ? Triphasic ?? Dorsalis Pedis (Ankle) Artery ?161 ? 1.22 ??Triphasic ?? Posterior Tibial (Ankle) Artery ??167 ? 1.27 ??Triphasic ?? Interpretatio n: RIGHT: No evidence of lower extremity arterial occlusive disease. LEFT: No evidence of lower extremity arterial occlusive disease. Comparison: ??No previous study in our vascular lab database for comparison. Electronicall y Signed by: JASON PATTERSON on 2021-04-13 08:00:44 AM VASCUBASE VB Text Report End of Report VASCUBASE 04/11/2021 1:49 PM EST Barrington Archer CONSTRUCTION CARPENTER VASCULAR ORDERABLE S VASCUBASE documented in this encounter Visit Diagnoses Diagnosis Abnormal ankle brachial index ([place]) documented in this encounter Care Teams Cover Stitch Machine Operator Relationship Specialty Start Date End Date Patrick Potter MD [address] [place] [address] PCP - General 08/08/10 documented as of this encounter
--- OUTSIDE RECORDS SUMMARY | 2024-04-27 20:24 | XMS_ITS | Encounter Summary ---
Author Organization [facility] [place] [address] Care Team Providers Care Instrument Maker Apprentice Name Role Phone Patrick Potter MD Primary Care Provider [phone] Reason for Referral * Diagnostic Test (Routine) - Closed Specialty Diagnoses / Procedures Referred By Contac t Referred To Contact Diagnoses Abnormal ankle brachial index (NY) Procedures [place], legs, multiple levels Barrington Archer APRN [facility] [place] [address] [facility] Vascular Lab [address] [place] [address] Referral ID Status Reason Start Date Expiration Date V isits Requested Visits Authorized [id number] Closed Specialty Service Requested 03/17/2021 03/17/2022 1 1 Encounter Details Date Type Department Care Team (Late st Contact Info) Description 03/17/2021 Orders [place] [address] Barrington Archer APRN [facility] [place] [address] Abnormal ankle brachial index ([place]) Social History [...] 8:15 AM EDT Office Visit Dermatology at [place] [address] [facility] [place] [address] Melvin Rivas MD [address], [place] [address] documented as of this encounter Results * [place], legs, multiple levels (04/11/2021 1:49 PM EST) VB Text Report Department: Vascular Surgery Lab Patient: [id number] (JEREMIAH EMMANUEL) CPT: 48175 ICD10: R68.89 Referring Physician: BARRINGTON ARCHER APRN [...] VASCUBASE 04/11/2021 1:49 PM EST Barrington Archer SOIL SAMPLER VASCULAR ORDERABLE S VASCUBASE documented in this encounter Visit Diagnoses Diagnosis Abnormal ankle brachial index ([place]) documented in this encounter Care Teams Instrument Maker Apprentice Relationship Specialty Start Date End Date Patrick Potter MD [address] [address] PCP - General 08/08/10 documented as of this encounter
--- OUTSIDE RECORDS SUMMARY | 2024-04-27 20:24 | XMS_ITS | Encounter Summary ---
Author Organization [facility] Address [address] [place] [address] Care Team Providers Care Insurance Appraiser Name Role Phone Brendan Potter MD Primary Care Provider [phone] Encounter Details Date Type Department Care Team (Late st Contact Info) Description 02/06/2017 Results Only [facility] [phone] Fazal Lorenzo MD [address] [place] [address] [address] [place] [id number] Social History Tobacco Use Types Packs/Day Years [...] Date/Time Associated Diagnosis Comments SURGICAL PATHOLOGY Routine 02/06/2017 9:57 EDT documented in this encounter Results * SURGICAL PATHOLOGY (02/06/2017 9:57 EDT) Pathology Report: SURGICAL PATHOLOGY REPORT Reports generated via electronic interface contain original data; however they are lacking the format of the original report. Caution should be taken when reading/interpreti ng unformatted reports. Name: ? JEREMIAH EMMANUEL ? Accession #: ? [id number] ? : ? 1950 (Age: 67) ??M ? Collect Date: ? 02/06/2017 ? Location: ? [facility] ? Receive Date: ? 02/06/2017 ? Provider: FAZAL LORENZO MD Copy to: BRENDAN POTTER MD ? Final Pathologic Diagnosis: HEMORRHOIDS, EXCISION: - Fibroepithelial polyps (skin tag). - Overlying squamous mucosa is negative for dysplasia. Document reviewed and electronically signed by: JOVITA SÁNCHEZ MD Report ??Date: 02/11/2017 08:51 By the signature above, the attending physician certifies that he/she has personally conducted a gross and/or microscopic examination of the described specimens and rendered or confirmed the above diagnosis. Specimen(s) Received: Hemorrhoids Clinical History: Hemorrhoids Gross Description: ? Received in formalin labelled with proper patient identification (initials A, T) and hemorrhoids are six pieces of soft tissue (0.5 x 0.5 x 0.3 cm to 3.2 x 2.0 x 1.0 cm). ??Each piece is covered with very slightly albert-pink mucosa and albert-white wrinkled skin. ??Sectioning reveals a albert fleshy firm surface with focal hemorrhage. ??Information Technology Technician sections from each specimen are submitted in [address] Jiang 02/07/2017 3:29 PM End of Report [facility] 02/06/2017 9:57 EDT 02/06/2017 9:57 EDT us Fazal Lorenzo MD PATHOLOGY ORDERABLES Fin al Result [facility] [address] [place] [address] documented in this encounter Visit Diagnoses Not on filedocumented in this encounter Care Teams Insurance Appraiser Relationship Specialty Start Date End Date Brendan Potter MD [address] [place] [address] PCP - General 02/06/13 documented as of this encounter
--- OUTSIDE RECORDS SUMMARY | 2024-04-27 20:24 | XMS_ITS | Encounter Summary ---
Author Organization [facility] [place] [address] Care Team Providers Care Layer Off Name Role Phone Patrick Potter MD Primary Care Provider [phone] Encounter Details Date Type Department Care Team (Late st Contact Info) Description 11/04/2018 External [place] [phone] Provider, Scanning Social History Tobacco Use Types Packs/Day Years [...] 8:15 AM EDT Office Visit Dermatology at [place] [address] [facility] [place] [address] Melvin Rivas MD [address] [facility], [place] [address] documented as of this encounter Procedures Procedure Name Priority Date/Time Associated Diagnosis Comments SURGICAL PATHOLOGY SCAN Routine 11/04/2018 documented in this encounter Results * Scan Doc: Surgical Pathology (11/04/2018) Historical Provider MD NOYOLA MGR SCAN EX T ORDR/RSLT documented in this encounter Visit Diagnoses Not on filedocumented in this encounter Care Teams Layer Off Relationship Specialty Start Date End Date Patrick Potter MD [address] [place] [address] PCP - General 08/08/10 documented as of this encounter
--- OUTSIDE RECORDS SUMMARY | 2024-04-27 20:24 | XMS_ITS | Encounter Summary ---
Author Organization [facility] Address [facility] [place] [address] Care Team Providers Care Reflexologist Name Role Phone Patrick Potter MD Primary Care Provider [phone] Encounter Details Date Type Department Care Team (Latest Contact Info) Description 12/09/2018 9:59 AM EDT - 12/09/2018 11:59 PM EDT Hospital Encounter XRay at [address] [place] [address] Alejo Diez MD [facility] [place] [address] Tear of tendon of left ankle, sequela Discharge Disposition: Home Social History Tobacco Use [...] AM EDT Office Visit Dermatology at [address] [place] [address] Melvin Rivas MD [address], [place] [address] documented as of this encounter Procedures Procedure Name Priority Date/Time Associated Diagnosis Comments XR ANKLE MIN 3 VIEWS LEFT Routine 12/09/2018 10:16 AM EDT Tear of tendon of left ankle, sequela documented in this encounter Results * XR Ankle Min 3 views Left (Generic) (12/09/2018 10:16 AM EDT) Anatomical Region Laterality Modality Ankle Left Digital Radiogra phy Impressions 12/09/2018 11:29 AM EDT 1. ??Old posterior malleolus injury. 2. ??No acute fractures seen. 3. ??Congruent ankle mortise. Thank you for letting us participate in the care of this patient. For questions regarding this report, please contact the number below. ? Narrative 12/09/2018 11:29 AM EDT EXAMINATION: XR ANKLE MIN 3 VIEWS LEFT (GENERIC) CLINICAL HISTORY: LEFT ANKLE PERONEUS BREVIS TENDON TEAR, , ??entered by ordering service TECHNIQUE: Left ankle, ??3 views COMPARISON: none FINDINGS: Bones Posterior malleolus-linear calcific fragment surrounds the posterior malleolus. Findings represent either posterior ligament injury or old posterior malleolus fracture. Joints Tibiotalar joint-congruent ankle mortise and no large effusion. Soft tissues Minimal soft tissue swelling around the ankle joint. Procedure Note Ilene Lorenz MD - 12/09/2018 EXAMINATION: XR ANKLE MIN 3 VIEWS LEFT (GENERIC) CLINICAL HISTORY: LEFT ANKLE PERONEUS BREVIS TENDON TEAR, , enteredby ordering service TECHNIQUE: Left ankle, 3 views COMPARISON: none FINDINGS: Bones Posterior malleolus-linear calcific fragment surrounds the posteriormalleolus. Findings represent either posterior ligament injury or old posteriormalleolus fracture. Joints Tibiotalar joint-congruent ankle mortise and no large effusion. Soft tissues Minimal soft tissue swelling around the ankle joint. IMPRESSION 1. Old posterior malleolus injury. 2. No acute fractures seen. 3. Congruent ankle mortise. Thank you for letting us participate in the care of this patient. Forquestions regarding this report, please contact the number below. Alejo Diez MD IMG DX ORDERABLES documented in this encounter Visit Diagnoses Diagnosis Tear of tendon of left ankle, sequela documented in this encounter Care Teams Reflexologist Relationship Specialty Start Date End Date Patrick Potter MD [address] [place] [address] PCP - General 08/08/10 documented as of this encounter
--- OUTSIDE RECORDS SUMMARY | 2024-04-27 20:24 | XMS_ITS | Encounter Summary ---
Author Organization [facility] Address [facility] [place] [address] Care Team Providers Care Intern Retail Name Role Phone Patrick Potter MD Primary Care Provider [phone] Reason for Visit * Reason Comments Follow Up Surgery L shldr scope, dos 1 Encounter Details Date Type Department Care Team (Late st Contact Info) Description 10/19/2011 4:00 PM EDT [place] [address] Wanda Landaverde PA [facility] [place] [address] S/P complete repair of rotator cuff - [...] Sign Reading Time Taken Comments Blood Pressure 112/59 10/19/2011 3:48 PM EDT Pulse - - Temperature - - Respiratory Rate - - Oxygen Saturation - - Inhaled Oxygen Concentration - - Weight 86.2 kg (190 lb) 10/19/2011 3:48 PM EDT Height 167.6 cm (5' 6) 10/19/2011 3:48 PM EDT Body Mass Index 30.67 10/19/2011 3:48 PM EDT documented in this encounter Progress Notes * Wanda Landaverde PA - 10/19/2011 4:28 PM EDT PATIENT NAME: Jeremiah Mcclure AGE: 61 y.o. MR#: [id number] DATE OF VISIT: 10/19/2011 DATE OF INJURY/ONSET: Surgery February 13, 2011 Right open distal clavicle resection Right shoulder arthroscopy with extensive debridement Right arthroscopic acromioplasty Right arthroscopic rotator cuff repair Right arthroscopic biceps tenotomy STAFF: Dr. Joel CHIEF COMPLAINT: Patient is approximately 8 months status post above procedure HISTORY OF PRESENT ILLNESS Mr. Ren zepeda 61 y.o. year old male comes into clinic today for followup appointment approximately 8 months status post above procedure. Patient states that he is doing extremely well in regards to his range of motion as well as his strength. The patient's main complaint is he has difficulty with heavy resistive overhead motion. The patient also feels that he is unable to return to some activities that he participated in before the surgery. Patient denies any fever/chills or other constitutional signs of infection. Patient denies any numbness/tingling into his right extremity. Patient feels that his biceps tenotomy is a continuing a drop in he especially notices over the last month. 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 PHYSICAL EXAM: Mr. Ren zepeda 61 y.oAlfonso is alert and oriented. He appears in no acute discomfort and isresting comfortably in a chair in the exam room. Forward Flexion: 180?? Abduction: 180?? External Rotation: 80?? Internal Rotation: T5 Strength: The patient's strength was 5/5 in all the above motions including empty can Neurological: Neurologic examination of the upper extremity is intact with normal motor function ofthe radial, median, ulnar, axillary and musculocutaneous nerves. Sensory function is intact in the radial, median, ulnar, axillary, and lateral antebrachial cutaneous nerve distributions. The hand was well perfused. Radial pulses are 2+ and equal bilateral. RADIOLOGICAL STUDIES: No new radiologic studies for this visit ASSESSMENT: Patient is doing extremely well 8 months status post above procedure PLAN: I spent approximately 15 minutes of this 20 minute visit discussing Mr. Mcclure's radiologic findings and physical exam findings. I discussed with the patient that I thought he was doing extremely well with full range of motion and rotator cuff strength after his rotator cuff repair. I discussed with the patient that he may never be able to perform heavy resistive overhead motion. I also stated the patient that this is the most likely activities that would cause a reinjury to his rotator cuff. The patient understands that if an activity causes him discomfort he probably should not be performing that activity. We will plan to see the patient back on an as-needed basis at this time. The p atient understands to contact us if he has any other questions or concerns. This dictation was performed using [employer] dictAppiterate. I have attempted to edit the note, but there may still be errors. documented in this encounter Plan of Treatment Upcoming Encounters Date Type Department Care Team (Late st Contact Info) Description 12/14/2024 8:15 AM EDT Office Visit Dermatology at [place] [address] [place] [address] Melvin Rivas MD [address] [facility] [address] documented as of this encounter Visit Diagnoses Diagnosis S/P complete repair of rotator cuff - right- Primary Other postprocedural status documented in this encounter Care Teams Intern Retail Relationship Specialty Start Date End Date Patrick Potter MD [address] [place] [address] PCP - General 08/08/10 documented as of this encounter
--- OUTSIDE RECORDS SUMMARY | 2024-04-27 20:24 | XMS_ITS | Encounter Summary ---
Author Organization [facility] [place] [address] Care Team Providers Care On Site Soil Evaluator Name Role Phone Patrick Potter MD Primary Care Provider [phone] Encounter Details Date Type Department Care Team (Late st Contact Info) Description 09/19/2018 External Results [place] [phone] Provider, Scanning Social History Tobacco Use Types [...] 8:15 AM EDT Office Visit Dermatology at [place] [address] [facility] [place] [address] Melvin Rivas MD 580 [facility], [place] [address] documented as of this encounter Procedures Procedure Name Priority Date/Time Associated Diagnosis Comments SURGICAL PATHOLOGY SCAN Routine 09/19/2018 documented in this encounter Results * Scan Doc: Surgical Pathology (09/19/2018) Historical Provider MD NOYOLA MGR SCAN EX T ORDR/RSLT documented in this encounter Visit Diagnoses Not on filedocumented in this encounter Care Teams On Site Soil Evaluator Relationship Specialty Start Date End Date Patrick Potter MD [address] [place] [address] PCP - General 08/08/10 documented as of this encounter
--- OUTSIDE RECORDS SUMMARY | 2024-04-27 20:24 | XMS_ITS | Encounter Summary ---
Author Organization [facility] [place] [address] Care Team Providers Care Lathe Operator Contact Lens Name Role Phone Patrick Potter MD Primary Care Provider Encounter Details Date Type Department Care Team (Latest Contact Info) Description 12/10/2022 Travel Social History Tobacco Use Types Packs/Day [...] 8:15 AM EDT Office Visit Dermatology at [address] [phone] Melvin Rivas MD [address] [facility] [place] [address] documented as of this encounter Visit Diagnoses Not on filedocumented in this encounter Care Teams Lathe Operator Contact Lens Relationship Specialty Start Date End Date Patrick Potter MD [address] [place] [address] PCP - General 08/08/10 documented as of this encounter
--- OUTSIDE RECORDS SUMMARY | 2024-04-27 20:25 | XMS_ITS | Encounter Summary ---
Author Organization [facility] [place] [address] Care Team Providers Care Power Plant Manager Name Role Phone Steve Stewart Primary Care Provider [phone] Encounter Details Date Type Department Care Team (Late st Contact Info) Description 06/01/2010 1:00 PM EST [place] [address] Herminia Mcmanus PA [facility] [place] [address] Discharge Disposition: Home Social History Tobacco Use [...] 8:15 AM EDT Office Visit Dermatology at [place] [address] [place] [address] Melvin Rivas MD [address] [facility] [place] [address] documented as of this encounter Visit Diagnoses Not on filedocumented in this encounter Care Teams Power Plant Manager Relationship Specialty Start Date End Date Steve Stewart PA [address] [place] [address] PCP - General 05/16/10 08/07/10 documented as of this encounter
--- OUTSIDE RECORDS SUMMARY | 2024-04-27 20:25 | XMS_ITS | Encounter Summary ---
[place] [address] Care Team Providers Care Professor Of Journalism Name Role Phone Steve Stewart Primary Care Provider Encounter Details Date Type Department Care Team (Late st Contact Info) Description 08/07/2010 4:30 PM EDT Office [place] [phone] Social History Tobacco Use Types Packs/Day Years [...] AM EDT Office Visit Dermatology at [address] [address] Melvin Rivas MD [address] [facility] [place] [address] documented as of this encounter Visit Diagnoses Not on filedocumented in this encounter Care Teams Professor Of Journalism Relationship Specialty Start Date End Date Steve Stewart PA [address] [place] [address] PCP - General 05/16/10 08/07/10 documented as of this encounter
--- OUTSIDE RECORDS SUMMARY | 2024-04-27 20:25 | XMS_ITS | Encounter Summary ---
Author Organization [facility] [place] [address] Care Team Providers Care Contract Sheltered Workshop Supervisor Name Role Phone Steve Stewart Primary Care Provider [phone] Encounter Details Date Type Department Care Team (Late st Contact Info) Description 08/07/2010 4:00 PM EDT Follow-[place] [address] Bony Cho MD [facility] DR [place] [address] Discharge Disposition: Home Social History Tobacco Use [...] 8:15 AM EDT Office Visit Dermatology at [place] [address] [facility] [place] [phone] Melvin Rivas MD [address] [facility], [place] [address] documented as of this encounter Visit Diagnoses Not on filedocumented in this encounter Care Teams Contract Sheltered Workshop Supervisor Relationship Specialty Start Date End Date Steve Stewart PA [address] [place] [address] PCP - General 05/16/10 08/07/10 documented as of this encounter
--- OUTSIDE RECORDS SUMMARY | 2024-04-27 20:25 | XMS_ITS | Encounter Summary ---
[place] [address] Care Team Providers Care Senior Procurement Manager Name Role Phone Patrick Potter MD Primary Care Provider Encounter Details Date Type Department Care Team (Late st Contact Info) Description 01/25/2011 [place] [phone] Geri Pittman, RN Social History Tobacco Use Types Packs/Day Years [...] 8:15 AM EDT Office Visit Dermatology at [address] [address] Melvin Rivas MD [address] [facility] [place] [address] documented as of this encounter Visit Diagnoses Not on filedocumented in this encounter Care Teams Senior Procurement Manager Relationship Specialty Start Date End Date Patrick Potter MD [address] [place] [address] PCP - General 08/08/10 documented as of this encounter
--- OUTSIDE RECORDS SUMMARY | 2024-04-27 20:25 | XMS_ITS | Encounter Summary ---
[place] [address] Care Team Providers Care Template Clerk Name Role Phone Steve Stewart Primary Care Provider [phone] Encounter Details Date Type Department Care Team (Late st Contact Info) Description 06/01/2010 12:00 PM EST Procedure visit [facility] [place] [address] Social History Tobacco Use Types Packs/Day Years [...] 8:15 AM EDT Office Visit Dermatology at [address] [address] Melvin Rivas MD [address] [facility] [place] [address] documented as of this encounter Visit Diagnoses Not on filedocumented in this encounter Care Teams Template Clerk Relationship Specialty Start Date End Date Steve Stewart PA [address] [place] [address] PCP - General 05/16/10 08/07/10 documented as of this encounter
--- OUTSIDE RECORDS SUMMARY | 2024-04-27 20:25 | XMS_ITS | Encounter Summary ---
Author Organization [facility] [place] [address] Care Team Providers Care Refuge Manager Name Role Phone Patrick Potter MD Primary Care Provider [phone] Reason for Visit * Reason Comments Right Shoulder Pain Right shldr scope / Pre-op Encounter Details Date Type Department Care Team (Late st Contact Info) Description 01/26/2011 2:30 PM EDT [place] [address] Bony Cho MD [facility] [place] [address] Pain in joint, shoulder region; RCT (rotator cuff tear) Discharge Disposition: Home Social History Tobacco Use Types Packs/Day Years Used Date Smoking Tobacco: Never Sex and Gender Information Value Date Recorded Sex Assigned at Not on file Gender Identity Not on file Sexual Orientation Not on file documented as of this encounter Last Filed Vital Signs Vital Sign Reading Time Taken Comments Blood Pressure 130/90 01/26/2011 2:04 PM EDT Pulse 68 01/26/2011 2:04 PM EDT Temperature - - Respiratory Rate - - Oxygen Saturation - - Inhaled Oxygen Concentration - - Weight 83.9 kg (185 lb) 01/26/2011 2:04 PM EDT Height 167.6 cm (5' 6) 01/26/2011 2:04 PM EDT Body Mass Index 29.86 01/26/2011 2:04 PM EDT documented in this encounter Patient Instructions * Patient Instructions* Yousif Diaz, TEST PULLER - 01/26/2011 2:02 PM EDT Welcome to [employer], your secure online access to your electronic medical record at [facility]. Using [employer] you will be able to send messages to your providers, view your test results, renew prescriptions, schedule appointments, and much more. Follow these instructions to enter your personal [employer] account for the first time: 1. Start your internet browser. Go to [email or web address] and click on the [employer] link. 2. Click SIGN UP NOW to go to the NEW MEMBER SIGN UP page. 3. Enter your [employer] Access Code exactly as it appears below. (You will not need this access code after you have completed the sign-up process.) ?? Your [employer] Access Code: [email or web address] ?? Expires: 03/12/11 02:02 PM ?? IMPORTANT: This Access Code will on the above mentioned date. If you do not sign up before this date, you will need to request a new Access Code number. 4. Enter your Date of (mm/dd/yyyy) and zip code click SUBMIT to go to the next page. 5. Create a [employer] identification (ID). This will be your [employer] login ID and cannot be changed, so think of one that is secure and easy to remember. 6. Create a password which you can change at any time. Your password must contain six (6) letters and two (2) numbers. 7. Enter your Password Reset Question and Answer. This will be used if you forget your password. 8. Enter your e-mail address. This is used to let you know when new information is available in [employer]. 9. Click SIGN UP to complete the process. You can now view your electronic medical record. If you have any questions about [employer] or your Access Code, please call for [place], for [place] or for [place]. If you need technical support, please e-mail . Remember, [employer] is NOT for urgent needs! Always dial 911 for medical emergencies. documented in this encounter Progress Notes * Donna Grimm RN - 01/26/2011 3:25 PM EDT Pre op teaching done for right shoulder arthroscopy,probable rotator cuff repair,bicep tenotomy. Pthas history of kidney stones. He denies any problems with pain medication and states he has tolerated them.He has good support system. He [place] 11[place] away. Post op guidelines reviewed,questions answered. He will be fitted today for sling and cyro cuff at [facility].He knows to call with any additional questions or concerns. * Bony Cho MD - 01/26/2011 2:39 PM EDT Mr. Mcclure returns after a long hiatus. He continues to have pain in his RIGHT SHOULDER. He sustained no new trauma. 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 Examination today, neuro/musculoskeletal exam, his right shoulder, it does in fact have a prominence related to a grade II AC separation of his right shoulder. It is tender to palpation exacerbated with adduction across the midline. He also has subacromial pain with positive impingement signs. His total active elevation is 160 degrees, but he has a painful impingement arch. Positive empty can, negative external rotation lag sign, negative belly press, markedly positive Yergason's, markedly positive speed. Right elbow, wrist and hand are nontender. Distal neurovascular exam is intact. I reviewed his MRI of his right shoulder once again, which is consistent with the full thickness supraspinatus tear and anterior portion infraspinatus tear. He also has significant AC arthropathy. His x-rays were repeated today, I see no obvious change in the bony architecture. PLAN: This was a counseling dominating encounter 25 minutes of length. We reviewed his clinical examination as well as the shoulder models and his x-rays. We will plan to proceed with a right shoulder arthroscopy for a probable biceps tenotomy. We did discuss the deformity for which should be left for potential cramping, discomfort. We also discussed proceeding with an arthroscopic rotator cuff repair. In addition, I think it will benefit most by an open distal clavicle resection via a saber incision. We discussed at great length the surgical procedures with each as well as the risks and the necessary rehabilitation. Questions were solicited and answered. Informed consent obtained. We will proceed with surgery at some point in the near feature. documented in this encounter Miscellaneous Notes * Miscellaneous - Sarmad, Hop Picker - 02/05/2011 3:18 PM EDT documented in this encounter Plan of Treatment Upcoming Encounters Date Type Department Care Team (Late st Contact Info) Description 12/14/2024 8:15 AM EDT Office Visit Dermatology at [place] [address] [place] [address] Melvin Rivas MD [address] [place] [address] documented as of this encounter Procedures Procedure Name Priority Date/Time Associated Diagnosis Comments XR SHOULDER Routine 01/26/2011 1:36 PM EDT Pain in joint, shoulder region documented in this encounter Results * XR shoulder (01/26/2011 1:36 PM EDT) Anatomical Region Laterality Modality Shoulder N/A Radiographic Jennie ging 01/26/2011 1:36 PM EDT Narrative 01/29/2011 8:30 AM EDT RIGHT SHOULDER, FOUR VIEWS: HISTORY: ??Shoulder pain. COMPARISON: ??Comparison to 06/01/10. FINDINGS: ??No significant interval change. ??Glenohumeral joint is intact. ?? Degenerative changes at the acromioclavicular joint. ??Visualized portions of the right lung apex are clear. Procedure Note April Herrera MD - 01/29/2011 RIGHT SHOULDER, FOUR VIEWS: HISTORY: Shoulder pain. COMPARISON: Comparison to 06/01/10. FINDINGS: No significant interval change. Glenohumeral joint is intact. Degenerative changes at the acromioclavicular joint. Visualized portionsof the right lung apex are clear. Bony Cho MD IMG DX ORDERABLES documented in this encounter Visit Diagnoses Diagnosis Pain in joint, shoulder region RCT (rotator cuff tear) Complete rupture of rotator cuff documented in this encounter Care Teams Refuge Manager Relationship Specialty Start Date End Date Patrick Potter MD [address] [place] [id number] PCP - General 08/08/10 documented as of this encounter
[2024-04-27 22:50] LABS: Anion Gap 10.3 mmol/L (3-11); BUN 18 mg/dL (7-18); CO2 25.7 mmol/L (21.0-32.0); CREATININE 1.3 mg/dL (0.70-1.30); Calcium 9.2 mg/dL (8.5-10.1); Calculated LDL 156 mg/dL (<100); Chloride 106 mmol/L (98-107); Cholesterol 255 mg/dL (<200); Estimated GFR 58.37 (mL/min/1.73m2); Glucose 109 mg/dL (74-106); HDL Cholesterol 60 mg/dL (40-60); Potassium 4.2 mmol/L (3.5-5.1); Sodium 142 mmol/L (136-145); Triglyceride 197 mg/dL (<150)
== END 2024-04-27 20:23 | disposition home or self-care (01) ==
LOC: NCHCN 20:22
PROVIDERS: PCP Internal Medicine; Visit Provider Internal Medicine
DX: E78.5 Hyperlipidemia, unspecified (principal); I10 Essential (primary) hypertension
CPT/HCPCS: 80048; 80061

== ENCOUNTER 2024-04-29 02:45 | Outpatient (CLI) | payer MEDICARE, SELFPAY ==
--- NOTE | 2024-04-29 | DI.RAD_ITS ---
Exam(s) XR THORACIC SPINE COMPLETE EXAM: XR THORACIC SPINE COMPLETE CLINICAL HISTORY: PAIN THORACIC SPINE, M54.6. TECHNIQUE: 2D digital imaging was performed of the thoracic spine. Four views were obtained. AP, s jose's and lateral views were obtained. COMPARISON: CR XR CHEST 2V PA LATERAL from 12/24/2022 FINDINGS: BONES: There is no fracture or destructive lesion. Small endplate osteophytes are seen at multiple le vels throughout the thoracic spine. The patient has a left shoulder prosthesis. DISKS:Alignment is within normal limits. Interverebral disc spaces are maintained. SOFT TISSUE: Visualized lungs are clear. IMPRESSION: Mild degenerative changes seen in the thoracic spine. DATA REPOSITORY: RADIATION DOSE DELIVERED:
== END 2024-04-29 03:05 ==
LOC: DI 02:46
PROVIDERS: PCP Internal Medicine; Visit Provider Internal Medicine
DX: M54.6 Pain in thoracic spine (principal)
CPT/HCPCS: 72072

== ENCOUNTER 2024-08-24 12:54 | Outpatient (REF) | payer MEDICARE, SELFPAY ==
[2024-08-24 19:11] LABS: HCT 47.7 % (40.0-50.0); HGB 16.5 g/dL (13.5-17.5); MCH 32.2 pg (27.0-33.0); MCHC 34.6 % (32.0-36.0); MCV 93 fL (80-95); MPV 9.4 fL (8.0-11.0); Platelet Count 239 10^3/uL (130-400); RBC 5.12 10^6/uL (4.36-5.78); RDW 12.8 % (11.8-14.1); RDW-SD 43.6 fL
[2024-08-24 20:22] LABS: ALT 82 U/L (16-63); Creatine Kinase 234 U/L (39-308); Glucose 101 mg/dL (74-106)
[2024-08-24 20:34] LABS: Calculated LDL 67 mg/dL (<100); Cholesterol 160 mg/dL (<200); HDL Cholesterol 61 mg/dL (>or=40); Triglyceride 163 mg/dL (<150)
[2024-08-25 19:40] LABS: Hepatitis C Ab w Rflx HCV PCR Negative (Negative)
== END 2024-08-24 12:55 | disposition home or self-care (01) ==
LOC: NCHCN 12:54
PROVIDERS: PCP Internal Medicine; Visit Provider Internal Medicine
DX: E78.5 Hyperlipidemia, unspecified (principal); I10 Essential (primary) hypertension
CPT/HCPCS: 80061; 82550; 82947; 85027; 86803; 84460

== ENCOUNTER 2024-09-17 13:28 | Outpatient (CLI) | payer MEDICARE, SELFPAY ==
--- NOTE | 2024-09-17 | DI.RAD_ITS ---
Exam(s) XR HIP RT COMPLETE AP PELVIS EXAM: XR HIP RT COMPLETE AP PELVIS CLINICAL HISTORY: OSTEOARTHRITIS RT HIP M16.11 3 VIEW, SEVERE RT HIP ARTHRITIS ALSO INVOLVING. TECHNIQUE: 2D digital imaging was performed. Two views COMPARISON: CR [place] ILIAC JOINTS from 10/21/2015 FINDINGS: BONES: No acute fracture is present. No bony destructive lesion is seen. JOINTS: No dislocation present. The hip joint spaces are maintained. There is mild acetabular spur ring bilaterally. The SI joints and pubic symphysis are unremarkable. SOFT TISSUE: Normal. IMPRESSION: No acute abnormality. Mild degenerative changes of the hips. DATA REPOSITORY: RADIATION DOSE DELIVERED:
== END 2024-09-17 13:48 ==
LOC: DI 13:28
PROVIDERS: PCP Internal Medicine; Visit Provider Internal Medicine
DX: M16.11 Unilateral primary osteoarthritis, right hip (principal)
CPT/HCPCS: 73502

== ENCOUNTER 2024-09-25 11:03 | Outpatient (CLI) | payer MEDICARE, SELFPAY ==
[2024-09-25 12:21] LABS: Ferritin 335 ng/mL (26-388)
[2024-09-25 12:31] LABS: Iron 106 ug/dL (65-175); Total Iron Binding Capacity 334 ug/dL (250-450); Transferrin Sat 32 % (20-55)
[2024-09-28 10:18] LABS: Alpha 1 Antitrypsin,Serum 122 mg/dL (90-200)
[2024-09-29 12:17] LABS: HBe Antibody Negative (Negative); Hepatitis Be Antigen Negative (Negative)
[2024-09-29 16:02] LABS: ALT 68 U/L (7-55); ActiTest Grade A1-A2; ActiTest Interpretation minimal activity; ActiTest Score 0.39; Alpha-2-Macroglobulin 164 mg/dL (100 - 280); Apoliprotein A1 162 mg/dL (>=120); Bilirubin, Total 0.5 mg/dL (0.0 - 1.2); FibroTest Interpretation no fibrosis; FibroTest Score 0.27; FibroTest Stage F0-F1; GGT 55 U/L (8 - 61); Haptoglobin 151 mg/dL (30 - 200)
[2024-10-01 09:04] LABS: Misc Referral (MAYO) See Comments
== END 2024-09-25 11:04 | disposition home or self-care (01) ==
LOC: LBO 11:04
PROVIDERS: PCP Internal Medicine; Visit Provider Internal Medicine
DX: K76.0 Fatty (change of) liver, not elsewhere classified (principal)
CPT/HCPCS: 36415; 81596; 87340; 82103; 82728; 83540; 83550; 86707; 87350

== ENCOUNTER → 2024-12-21 13:32 | Outpatient (BNVA) | payer MEDICARE, SELFPAY | PROVIDERS: PCP Internal Medicine; Referring Provider Internal Medicine; Visit Provider Physician Assistant | DX: M16.11 Unilateral primary osteoarthritis, right hip (principal); M54.50 Low back pain, unspecified; M79.661 Pain in right lower leg | CPT/HCPCS: 99213; 20611; J1010 ==

== ENCOUNTER 2025-01-18 09:56 | Outpatient (CLI) | payer MEDICARE, SELFPAY ==
--- NOTE | 2025-01-22 08:20 | W.PFT ---
Date of service: 01/18/25 Time of Service: 08:03 Pulmonary Function Test Result Indications: Nocturnal Hypoxia Impression 1. Good patient effort was noted. ATS standards for reproducibility were met. 2. Normal spirometry. 3. TLC was normal. No evidence of restrictive lung disease 5. DLCO was normal indicating normal alveolar gas exchange
== END 2025-01-18 09:57 | disposition home or self-care (01) ==
LOC: RT 09:57
PROVIDERS: PCP Internal Medicine; Visit Provider Internal Medicine Pulmonary Disease
DX: R09.02 Hypoxemia (principal)
CPT/HCPCS: 94010; 94726; 94729

== ENCOUNTER → 2025-01-19 07:58 | Outpatient (BNVA) | payer MEDICARE, SELFPAY | PROVIDERS: PCP Internal Medicine; Referring Provider Internal Medicine; Visit Provider Physician Assistant Surgical | DX: R09.02 Hypoxemia (principal); I82.409 Acute embolism and thrombosis of unspecified deep veins of unspecified lower extremity; D68.51 Activated protein C resistance; Z23 Encounter for immunization | CPT/HCPCS: 90471; 99215 ==

== ENCOUNTER 2025-01-20 04:39 | Outpatient (CLI) | payer MEDICARE, SELFPAY | END 2025-01-20 04:40 | disposition home or self-care (01) | LOC: RT 04:39 | PROVIDERS: PCP Internal Medicine; Visit Provider Physician Assistant Surgical | DX: R09.02 Hypoxemia (principal) | CPT/HCPCS: 94762 ==

== ENCOUNTER → 2025-02-18 08:07 | Outpatient (BNVA) | payer MEDICARE, SELFPAY | PROVIDERS: PCP Internal Medicine; Referring Provider Internal Medicine; Visit Provider Physician Assistant Surgical | DX: R09.02 Hypoxemia (principal); G47.33 Obstructive sleep apnea (adult) (pediatric) | CPT/HCPCS: 99214 ==